=== PATIENT | male | born 1965 | race Caucasian/White ===

== ENCOUNTER → 2017-08-25 12:13 | Outpatient (CLI) | payer BC, SELFPAY ==
--- NOTE | 2017-08-25 12:19 | XR_ITS ---
XR chest 2V HISTORY: ITS.REASON: BRONCHITIS ORDERING PHYSICIAN: KETAN Toledo PATIENT AGE: 52 years COMPARISON: 09/08/2016 FINDINGS: The cardiomediastinal silhouette and pulmonary vascularity are within normal limits. There are mild atelectatic changes in the left lower lobe. There is mild hyperinflation. No lobar consolidation or collapse.. No acute bony abnormalities. IMPRESSION: Hyperinflation consistent with small airway disease with mild left basilar atelectasis
== END ==
PROVIDERS: PCP Physician Assistant; Visit Provider Physician Assistant
DX: J40 Bronchitis, not specified as acute or chronic (principal)
CPT/HCPCS: 71046

== ENCOUNTER 2018-03-15 13:45 | Outpatient (RCR) | payer OTHER, SELFPAY | END 2018-04-29 14:26 | disposition home or self-care (01) | LOC: PT 13:45 | PROVIDERS: PCP Family Medicine; Visit Provider Internal Medicine | DX: Z95.5 Presence of coronary angioplasty implant and graft (principal) | CPT/HCPCS: 93798 ==

== ENCOUNTER → 2018-03-28 14:17 | Outpatient (CLI) | payer OTHER, SELFPAY ==
[2018-03-28 14:49] LABS: Eosinophils # 0.1 K/mm3 (0.0-0.4); Eosinophils % 1.4 % (0.1-12.0); Hematocrit 47.7 % (42.0-52.0); Hemoglobin 16.3 g/dL (14.1-18.0); Lymphocytes # 1.2 K/mm3 (0.7-4.5); Lymphocytes % 15.4 K/mm3 (10-50); Mean Corpuscular HGB Conc 34.2 g/dL (31.8-35.4); Mean Corpuscular Hemoglobin 29.3 pg (27.0-31.2); Mean Corpuscular Volume 85.6 fl (80-94); Mean Platelet Volume 6.9 fl (7.4-10.4); Monocytes # 0.3 K/mm3 (0.1-1.0); Monocytes % 4.4 % (1.7-9.3); Neutrophils # 5.9 K/mm3 (1.8-7.8); Neutrophils % 78.7 % (37.0-80.0); Platelet Count 259 K/mm3 (142-424); Red Blood Count 5.57 M/mm3 (4.60-6.20); Red Cell Distribution Width 13.7 % (11.5-17.5); White Blood Count 7.5 K/mm3 (4.8-10.8)
[2018-03-28 15:43] LABS: Anion Gap 14.8 mEq/L (5-15); Blood Urea Nitrogen 11 mg/dL (7-18); Calcium 9.4 mg/dL (8.5-10.1); Carbon Dioxide 23 mmol/L (21.0-32.0); Chloride 106 mmol/L (98-107); Creatinine,Serum 1.31 mg/dL (0.70-1.30); Estimated Glomerular Filt Rate 57 ml/min (>60); GFR (African American) 69 ML/MIN (>60); Glucose 105 mg/dL (74-106); Potassium 4.8 mmoL/L (3.5-5.1); Sodium 139 mmol/L (136-145)
== END ==
PROVIDERS: Visit Provider Physician Assistant
DX: E78.4 Other hyperlipidemia (principal); I11.9 Hypertensive heart disease without heart failure; I25.10 Atherosclerotic heart disease of native coronary artery without angina pectoris; R91.1 Solitary pulmonary nodule; R06.02 Shortness of breath; J44.9 Chronic obstructive pulmonary disease, unspecified; Z95.5 Presence of coronary angioplasty implant and graft
CPT/HCPCS: 36415; 80048; 83880; 85025

== ENCOUNTER 2020-05-09 10:42 | Emergency (ER) | payer BC, SELFPAY ==
[2020-05-09 11:14] VITALS: BP 140/75; PULSE 82; RESP 20; TEMP 36.6; O2SAT 94; BMI 32.5
--- NOTE | 2020-05-09 11:40 | XR_ITS ---
PROCEDURE: XR CHEST 2V CLINICAL HISTORY: SOB Shortness of breath, COPD, former smoker COMPARISON: No exams were available for comparison FINDINGS: The cardiomediastinal silhouette and pulmonary vascularity are within normal limits. Atelectatic changes are present in both lower lobes. No lobar consolidation or collapse is evident. No acute bony abnormalities. IMPRESSION: Bilateral lower lobe atelectasis Dictated by: Clarence Adams MD 05/09/2020 12:41 Clarence Adams MD in [place] 05/09/2020 12:41
--- NOTE | 2020-05-09 11:40 | HMH.EDUTC ---
[facility] [place] Impression: COPD exacerbation URI (upper respiratory infection) Qualifiers: URI type: unspecified URI Qualified Code(s): J06.9 - Acute upper respiratory infection, unspecified Disposition: Home, Self-Care Condition on Discharge: Good Instructions: Sore Throat, Cough, DI for Cough -- Adult, Preventing the Spread of Coronavirus Discharge Instructions Additional Instructions: *Monitor Temp, Over the counter Motrin or Tylenol as directed/as needed Tylenol every 4 hours and Motrin every 6 hours (as long as your family doctor has told you that you can take it) for fever or pain. and straight to ER if unable to lower temp less than 101.0 after medication given *Warm salt water gargles may help to soothe the throat *Throat Lozenges *Warm fluids like tea with honey may help to soothe the throat *Sleep elevated *Humidifier/Vaporizer *You was tested for COVID 19, go home and self quarantine until your test results area back and negative Take medication as prescribed Return if needed Call back to the [facility] in the next 48-72 hours to see if your COVID test are back and the result Your throat swab was sent for culture. Those results are typically sent to your primary care. Be sure to follow up in 2-3 days with your family doctor/primary care physician if no improvement so they can review those result and treat if necessary. If you don?t have a primary care doctor, I recommend you get one but in the mean time, you will have to return to a walk in clinic Follow up IMMEDIATELY for new or worsening symptoms or no Noticeable improvement over the next 48-72 hours. 911 for difficulty breathing or swallowing Prescriptions: Albuterol Sulfate [Proventil-HFA 90mcg/puff Inh] 1 - 2 puffs IH Q4HP PRN #1 inh PRN Reason: Shortness Of Breath Transmission Status: Received by [facility] # predniSONE [Deltasone 10mg tablet] 10 mg PO BID 5 Days #10 tab Transmission Status: Received by [facility] # Azithromycin [Z-Karl 250mg Tab] 250 mg PO DIRECTED #6 tab Transmission Status: Received by [facility] # Referrals: Malik Hayward MD [Primary Care Provider] - As needed Forms: Work/School Release Time of Disposition: 12:32 Medical Decision Making - Darin Inquiry Pt receiving controlled substance: No Darin was queried for this patient: No Vital Signs: 05/09/20 11:14 05/09/20 12:10 Temperature 97.8 F 97.8 F Temperature Source Oral Pulse Rate 82 Pulse Rate [Left] 82 Respiratory Rate 20 20 Blood Pressure 140/75 Blood Pressure [Right Arm] 140/75 Blood Pressure Mean [Right Arm] 96 Blood Pressure Source [Right Arm] Automatic Cuff Blood Pressure Position [Right Arm] Sitting 02 Sat by Pulse Oximetry 94 L Oxygen Delivery Method Room Air - Lab Data Lab results reviewed: Yes: I reviewed the patient's lab results. Lab Results 05/09/20 12:34: Strep Scn Rapid Clinic Negative Orders (Tests/Meds): ORDERS Category Date Time Status Covid-19 Nasal PCR Sendout [facility] Stat Lab 05/09/20 10:20 Received Strep Screen Confirmation Stat Micro 05/09/20 12:34 Received - Radiology Data #1 Image(s): Chest Image Reviewed: Yes I reviewed the patient's radiology image w/the ED provider Atelectisis left lower lobe [facility] [place] - General Stated complaint: sore throat run nose cough Time Seen by Provider: 05/09/20 11:40 Mode of Arrival: Ambulatory Source of Information: Patient Limitations: No Limitations Description of Symptoms (Recalled from Triage Doc. by RN): Pt c/o sore throat, headache, fatigue, productive cough and SOB since yesterday. Pt states that he has COPD but it has been worse the last day. Pt states that they have had several people at work that have tested positive for the Covid-19. HEENT Symptoms (Recalled from RN notes): Yes Resp Symptoms (Recalled from RN notes): Yes Skin Symptoms (Recalled from RN notes): No MS Symptoms (Recalled from
[2020-05-09 12:10] VITALS: BP 140/75; PULSE 82; RESP 20; TEMP 36.6; O2SAT 94
[2020-05-09 12:36] LABS: UTC Strep Screen (Rapid) Negative (Negative)
[2020-05-10 20:32] LABS: Covid-19 Nasal PCR Sendout Lex Not Detected
== END 2020-05-09 12:37 | disposition home or self-care (01) ==
PROVIDERS: Emergency Provider Nurse Practitioner; PCP Family Medicine
DX: J44.1 Chronic obstructive pulmonary disease with (acute) exacerbation (principal); J06.9 Acute upper respiratory infection, unspecified; Z20.828 Contact with and (suspected) exposure to other viral communicable diseases
CPT/HCPCS: 71046; 87880; 99202; U0004

== ENCOUNTER 2020-07-11 09:27 | Emergency (ER) | payer BC, SELFPAY ==
[2020-07-11 09:48] VITALS: BP 115/80; PULSE 73; RESP 18; TEMP 36.8; O2SAT 98; BMI 32.5
--- NOTE | 2020-07-11 09:58 | HMH.EDUTC ---
[facility] [place] Disposition Clinical Impression: Encounter for laboratory testing for COVID-19 virus Sinusitis Qualifiers: Sinusitis location: unspecified location Chronicity: unspecified Qualified Code(s): J32.9 - Chronic sinusitis, unspecified Disposition: Home, Self-Care Condition on Discharge: Good Instructions: Sinusitis, Sinus Headache, DI for Sinusitis, Prednisone, Amoxicillin and Clavulanic Acid, Preventing the Spread of Coronavirus Discharge Instructions Additional Instructions: ? Start antibiotic today. Be sure to complete entire prescription even if feeling better ? Monitor temp. Tylenol every 4 hours as needed and / or ibuprofen every 6 hours as needed ( As long as your primary care physician has told you that it ok to take both. For fever/aches/pains ER if no less than 101 despite Tylenol or Motrin ? Humidifier/vaporizer or hot steamy shower ? Inhaler as prescribed by your Family Doctor. If unsure how to use it, ask pharmacist to demonstrate how. *Tessalon Perles will not cause drowsiness but use at bedtime to help stop cough so that you may get some rest. *Start steroid today. Helps with inflammation therefore, cough and wheezing. Follow directions on the package. Reviewed side effects. Patient reports taking them before. Follow up IMMEDIATELY for new or worsening of symptoms OR no noticeable improvement over the next 48-72 hours. 911 immediately for any life threatening symptoms such as chest pain or difficulty breathing Prescriptions: Amoxicillin/Potassium Clav [Augmentin 875-125 Tablet] 1 tab PO Q12H 7 Days #14 tab Transmission Status: Received by [facility] # predniSONE [Deltasone 10mg tablet] 10 mg PO BID 5 Days #10 tab Transmission Status: Received by [facility] # Benzonatate [Tessalon Perle 100mg Cap*] 100 mg PO TID PRN #15 cap PRN Reason: Cough Transmission Status: Received by [facility] # Referrals: Malik Hayward MD [Primary Care Provider] - As needed Forms: Work/School Release Medical Decision Making - Darin Inquiry Pt receiving controlled substance: No Darin was queried for this patient: No Vital Signs: 07/11/20 09:48 07/11/20 10:20 Temperature 98.2 F 98.2 F Temperature Source Oral Oral Pulse Rate 73 Pulse Rate [Radial] 73 Respiratory Rate 18 18 Blood Pressure 115/80 Blood Pressure [Right Arm] 115/80 Blood Pressure Mean [Right Arm] 91 Blood Pressure Source Automatic Cuff Blood Pressure Source [Right Arm] Automatic Cuff Blood Pressure Position Sitting Blood Pressure Position [Right Arm] Sitting 02 Sat by Pulse Oximetry 98 Oxygen Delivery Method Room Air Room Air - Lab Data Lab results reviewed: Yes: I reviewed the patient's lab results. Orders (Tests/Meds): ORDERS Category Date Time Status Covid-19 Nasal PCR Sendout [facility] Stat Lab 07/11/20 09:50 Received Medical Decision Narrative: Discussed CXR patient declined at this time [facility] [place] HPI - General Stated complaint: cough,runny nose,weak , SOS Time Seen by Provider: 07/11/20 09:58 Mode of Arrival: Ambulatory Source of Information: Patient Limitations: No Limitations Description of Symptoms (Recalled from Triage Doc. by RN): sob, cough, body aches x 3 days HEENT Symptoms (Recalled from RN notes): Yes Resp Symptoms (Recalled from RN notes): Yes Skin Symptoms (Recalled from RN notes): No MS Symptoms (Recalled from RN notes): No Functional Status (Recalled from RN notes): wnl - History of Present Illness Provider Complaint: Patient states that he has been having body aches, chill, sinus pain and pressure and feeling like he is having drainage in the back of his throat that is causing him to cough States that he has COPD and always has SOB but when he is coughing at times it feels like he cant get a deep breath denies productive cough States that he he hasnt had a fever that he is aware of but wanted to get checked for flu and COVID - Related Data Previous Rx's Medi
[2020-07-11 10:20] VITALS: BP 115/80; PULSE 73; RESP 18; TEMP 36.8; O2SAT 98
[2020-07-11 20:11] LABS: UTC Influenza A Antigen Negative (Negative); UTC Influenza B Antigen Negative (Negative); UTC Strep Screen (Rapid) Negative (Negative)
[2020-07-12 10:46] LABS: Covid-19 Nasal PCR Sendout Lex Not Detected
== END 2020-07-11 10:25 | disposition home or self-care (01) ==
PROVIDERS: Emergency Provider Nurse Practitioner; PCP Family Medicine
DX: Z20.828 Contact with and (suspected) exposure to other viral communicable diseases (principal); J32.9 Chronic sinusitis, unspecified
CPT/HCPCS: 87804; 87880; 99202; U0004

== ENCOUNTER → 2020-07-17 12:49 | Outpatient (CLI) | payer BC, SELFPAY ==
[2020-07-17 17:58] LABS: Alanine Aminotransferase 71 U/L (12-78); Albumin Level 4.2 g/dl (3.5-5.0); Albumin/Globulin Ratio 1.6 (1.1-1.8); Alkaline Phosphatase 104 U/L (38-126); Anion Gap 10.5 mEq/L (5-15); Aspartate Amino Transferase 37 U/L (17-59); Bilirubin,Total 0.5 mg/dl (0.2-1.3); Blood Urea Nitrogen 16 mg/dl (9-20); Calcium 9.7 mg/dl (8.4-10.2); Carbon Dioxide 28 mmol/L (22.0-30.0); Chloride 104 mmol/L (98-107); Chol/HDL Ratio 4.6 (1-3.5); Cholesterol 236 mg/dl (140-200); Estimated Glomerular Filt Rate 57 ml/min (>60); GFR (African American) 69 ML/MIN (>60); Globulin 2.7 g/dL (1.3-3.2); Glucose 66 mg/dl (74-100); HDL Cholesterol 51 mg/dl (40-60); Potassium 4.5 mmoL/L (3.5-5.1); Sodium 138 mmol/L (136-145); Total Protein,Serum 6.9 g/dl (6.3-8.2); Triglycerides 252 mg/dl (30-150); VLDL Cholesterol 50 mg/dL (0-40)
[2020-07-17 18:09] LABS: Direct LDL Cholesterol 148.09 mg/dL (100-129)
[2020-07-17 18:28] LABS: Prostate Specific Ag Screen 3.2 ng/ml (0.0-4.0); Thyroid Stimulating Hormone 1.44 uIU/mL (0.465-4.68)
[2020-07-17 22:28] LABS: Creatinine,Urine Random 178 mg/dL (Not Estab.); Microalbumin/Creatinine Ratio 6.6
== END ==
PROVIDERS: Visit Provider Family Medicine
DX: I10 Essential (primary) hypertension (principal); E78.5 Hyperlipidemia, unspecified; Z12.5 Encounter for screening for malignant neoplasm of prostate
CPT/HCPCS: 36415; 80053; 80061; 82043; 82570; 84443; G0103

== ENCOUNTER 2021-05-23 13:18 | Emergency (ER) | payer BC, SELFPAY ==
[2021-05-23 13:42] VITALS: BP 129/79; PULSE 78; RESP 24; TEMP 36.6; O2SAT 94; BMI 31.8
[2021-05-23 14:02] LABS: UTC Strep Screen (Rapid) Negative (Negative)
[2021-05-23 14:27] VITALS: BP 129/79; PULSE 78; RESP 24; TEMP 36.6
--- NOTE | 2021-05-23 14:35 | HMH.EDUTC ---
[facility] [place] Impression: Sinusitis Qualifiers: Sinusitis location: unspecified location Chronicity: unspecified Qualified Code(s): J32.9 - Chronic sinusitis, unspecified Disposition: Home, Self-Care Condition on Discharge: Good Instructions: Sinusitis, DI for Sinusitis Additional Instructions: *Monitor Temp, Over the counter Motrin or Tylenol as directed/as needed Tylenol every 4 hours and Motrin every 6 hours (as long as your family doctor has told you that you can take it) for fever or pain. and straight to ER if unable to lower temp less than 101.0 after medication given *Warm salt water gargles may help to soothe the throat *Throat Lozenges *Warm fluids like tea with honey may help to soothe the throat *Sleep elevated *Humidifier/Vaporizer Take medication as prescribed Follow up IMMEDIATELY for new or worsening symptoms or no Noticeable improvement over the next 48-72 hours. 911 for difficulty breathing or swallowing You were tested for today for COVID19 your test result should be back in the next 24-48 hours, you was given handout for instructions on how to log onto the [facility] portal to see your results if you have trouble logging on you may call for your results You was given a handout with instructions for Self Quarantine and Self isolation for while you wait on test results and what to do if they are positive If you are positive the Health Dept will be contacting you also Make sure to take your Vitamins Vit. C Vit D and Zinc if you can take them Prescriptions: Amoxicillin/Potassium Clav [Augmentin 875-125 Tablet] 1 tab PO Q12H 7 Days #14 tab Transmission Status: Received by [facility] # predniSONE [Deltasone 10mg tablet] 10 mg PO BID 5 Days #10 tab Transmission Status: Received by [facility] # Referrals: Malik Hayward MD [Primary Care Provider] - As needed Forms: Work/School Release Time of Disposition: 14:48 Medical Decision Making - Darin Inquiry Pt receiving controlled substance: No Darin was queried for this patient: No Vital Signs: 05/23/21 13:42 05/23/21 14:27 Temperature 98 F 98 F Temperature Source Oral Pulse Rate 78 Pulse Rate [Left] 78 Respiratory Rate 24 24 Blood Pressure 129/79 Blood Pressure [Right Arm] 129/79 Blood Pressure Mean [Right Arm] 95 02 Sat by Pulse Oximetry 94 L - Lab Data Lab Results 05/23/21 13:42: Strep Scn Rapid Clinic Negative Orders (Tests/Meds): ORDERS Category Date Time Status Covid-19 Nasal PCR ([facility]) Routine Lab 05/23/21 14:00 Received Strep Screen Confirmation Stat Micro 05/23/21 13:42 Received Medical Decision Narrative: Patient states that he has taken augmentin and prednisone in the past without complications or reactions rechecked SPO2 96% ra [facility] [place] - General Stated complaint: H/A, sinus pressure, chest congestion Time Seen by Provider: 05/23/21 14:20 Mode of Arrival: Ambulatory Source of Information: Patient Limitations: No Limitations Description of Symptoms (Recalled from Triage Doc. by RN): pt c/o DEE, sore throat and soa x3 days HEENT Symptoms (Recalled from RN notes): Yes (sore throat and DEE) Resp Symptoms (Recalled from RN notes): Yes (soa) Skin Symptoms (Recalled from RN notes): No MS Symptoms (Recalled from RN notes): No Functional Status (Recalled from RN notes): na - History of Present Illness Provider Complaint: Patient states that he has not felt well for over a week and for the last 3 days it has got worse States that he is having sinus pain and pressure and feeling pressure behind his eyes with drianage in the back of his throat that is making his throat feels sore State that he feels like the drainage is trying to move into his chest and wanted to get here before it got that bad due to him having COPD already and gets winded at times when he walks. State that SOA is no worse than normal but was worried it was trying to move into his chest so he came in
== END 2021-05-23 15:02 | disposition home or self-care (01) ==
PROVIDERS: Emergency Provider Nurse Practitioner; PCP Family Medicine
DX: J32.9 Chronic sinusitis, unspecified (principal)
CPT/HCPCS: 87880; 99203; C9803; G0463; U0003; U0005

== ENCOUNTER → 2021-07-22 16:05 | Outpatient (CLI) | payer BC, SELFPAY ==
--- NOTE | 2021-07-22 | XR_ITS ---
PROCEDURE INFORMATION: Exam: XR Right Calcaneus Exam date and time: 07/22/2021 12:00 AM Age: 56 years old Clinical indication: Pain; Heel; Right; Additional info: Heel pain; No known injury TECHNIQUE: Imaging protocol: XR of the Right calcaneus. Views: 2 or more views. COMPARISON: No relevant prior studies available. FINDINGS: Bones/joints: No fracture. No malalignment. There is a small plantar spur on the calcaneus. Soft tissues: Normal. IMPRESSION: Small plantar spur
== END ==
PROVIDERS: PCP Family Medicine; Visit Provider Family Medicine
DX: M79.671 Pain in right foot (principal)
CPT/HCPCS: 73650

== ENCOUNTER 2022-01-04 10:56 | Emergency (ER) | payer BC, SELFPAY ==
[2022-01-04 11:10] VITALS: BP 140/86; PULSE 73; RESP 19; TEMP 36.8; O2SAT 98; BMI 31.8
--- NOTE | 2022-01-04 11:19 | HMH.EDUTC ---
[facility] [place] Disposition Clinical Impression: COPD exacerbation Disposition: Home, Self-Care Condition on Discharge: Good Instructions: DI for Chronic Obstructive Pulmonary Disease Additional Instructions: Tylenol and ibuprofen as needed for pain or fever Humidifier/vaporizer/hot steamy shower Follow-up with primary care tomorrow. Follow-up immediately in the ER of the [facility] for new or worsening symptoms or no noticeable improvement over the next 48-72 hours. Stop smoking Start steroids tomorrow. Helps with inflammation therefore coughing and wheezing. Follow directions on package. Prescriptions: predniSONE [Prednisone 20mg Tab] 20 mg PO BID #10 tab Transmission Status: Pending to [id number] Referrals: Malik Hayward MD [Primary Care Provider] - Time of Disposition: 11:25 Medical Decision Making - Darin Inquiry Pt receiving controlled substance: No Vital Signs: 01/04/22 11:10 Temperature 98.3 F Temperature Source Oral Pulse Rate [Right Brachial] 73 Respiratory Rate 19 Blood Pressure [Right Arm] 140/86 Blood Pressure Mean [Right Arm] 104 Blood Pressure Source [Right Arm] Automatic Cuff Blood Pressure Position [Right Arm] Sitting 02 Sat by Pulse Oximetry 98 Oxygen Delivery Method Room Air [facility] [place] HPI - General Chief complaint: Urgent Treatment Center Stated complaint: SOA Time Seen by Provider: 01/04/22 11:19 Mode of Arrival: Ambulatory Source of Information: Patient Limitations: No Limitations Description of Symptoms (Recalled from Triage Doc. by RN): PATIENT C/O SOA X 1 WEEK. REPORTS HISTORY OF COPD HEENT Symptoms (Recalled from RN notes): No Resp Symptoms (Recalled from RN notes): Yes Skin Symptoms (Recalled from RN notes): No MS Symptoms (Recalled from RN notes): No Functional Status (Recalled from RN notes): WNL - History of Present Illness Provider Complaint: 56 yr old male presents for soa. pt states he has copd and its acting up. pt states he has been taking his inhalers but still soa - Related Data Home Medications Medication Instructions Recorded Confirmed aspirin 81 mg tablet,delayed 81 mg PO DAILY tab 02/28/18 09/04/21 release melatonin 5 mg tablet 5 mg PO HS PRN 02/28/18 09/04/21 tamsulosin 0.4 mg capsule 0.4 mg PO DAILY cap 02/28/18 09/04/21 finasteride 5 mg tablet 5 mg PO DAILY tab 04/02/21 09/04/21 tiotropium 2.5 mcg-olodaterol 2.5 2 puff INHALATION ONCE g 04/02/21 09/04/21 mcg/actuation mist for inhalation Clopidogrel Bisulfate [Plavix] 75 mg PO DAILY 09/04/21 09/04/21 Ezetimibe 10 mg PO DAILY 09/04/21 09/04/21 Isosorbide Mononitrate [Isosorbide 30 mg PO DAILY 09/04/21 09/04/21 Mononitrate ER] Pantoprazole Sodium 40 mg PO DAILY 09/04/21 09/04/21 Pitavastatin Calcium [Livalo] 2 mg PO HS 09/04/21 09/04/21 bisoproloL fumarate [Bisoprolol 5 mg PO DAILY 09/04/21 09/04/21 Fumarate] lisinopriL [Lisinopril] 2.5 mg PO DAILY 09/04/21 09/04/21 Previous Rx's Medication Instructions Recorded Albuterol Sulfate [Proventil-HFA 1 - 2 puffs IH Q4HP PRN #1 inh 05/09/20 90mcg/puff Inh] predniSONE [Prednisone 20mg 20 mg PO BID #10 tab 01/04/22 Tab] Allergies Allergy/AdvReac Type Severity Reaction Status Date / Time atorvastatin [From Lipitor] AdvReac Severe leg pain Verified 07/28/21 15:08 rosuvastatin [From Crestor] AdvReac Severe leg pain Verified 07/28/21 15:08 Imdrwvh-WBQ-MzN Reductase AdvReac Severe leg pain Verified 07/28/21 15:08 Inhibitor [Xegpdwn-Nrv-Mvj Reductase Inhibitor] - Worker's Comp Is this a Worker's Comp case?: No [facility] History - Hepatitis A Screen Attestation statement:: This patient has been screened for Hepatitis A risk factors. I have reviewed the patient's past medical history: Yes Medical History: Reports:: Asthma, Chronic Obstructive Pulmonary Disease (COPD), Coronary Artery Disease, Hyperlipidemia, Hypertension, Myocardial Infarction, Palpitations Denies:: Cancer, Diabetes Mellitus Type 1, Di
[2022-01-04 11:27] VITALS: BP 140/86; PULSE 73; RESP 19; TEMP 36.8; O2SAT 98
== END 2022-01-04 11:33 | disposition home or self-care (01) ==
PROVIDERS: Emergency Provider Nurse Practitioner Family; PCP Family Medicine
DX: J44.1 Chronic obstructive pulmonary disease with (acute) exacerbation (principal); Z88.8 Allergy status to other drugs, medicaments and biological substances
CPT/HCPCS: 96372; 99212; G0463

== ENCOUNTER 2022-01-26 14:07 | Emergency (ER) | payer BC, SELFPAY ==
[2022-01-26 14:15] VITALS: BP 144/84; PULSE 86; RESP 19; TEMP 36.6; O2SAT 97; BMI 27.3
--- NOTE | 2022-01-26 14:44 | HMH.EDUTC ---
[facility] [place] Clinical Impression: COPD exacerbation Sinusitis Qualifiers: Sinusitis location: unspecified location Chronicity: unspecified Qualified Code(s): J32.9 - Chronic sinusitis, unspecified Disposition: Home, Self-Care Condition on Discharge: Good Instructions: Sinusitis, Chronic Obstructive Pulmonary Disease, DI for Sinusitis, COPD: When to Call for Help Additional Instructions: ? Start antibiotic today. Be sure to complete entire prescription even if feeling better ? Monitor temp. Tylenol every 4 hours as needed and / or ibuprofen every 6 hours as needed ( As long as your primary care physician has told you that it ok to take both. For fever/aches/pains ER if no less than 101 despite Tylenol or Motrin ? Humidifier/vaporizer or hot steamy shower ? Inhaler every 4-6 hours as needed like we discussed. If unsure how to use it, ask pharmacist to demonstrate how. Should help open airways and improve cough, wheezing, and shortness of breath *Start steroid tomorrow. Helps with inflammation therefore, cough and wheezing. Follow directions on the package. Reviewed side effects. Patient reports taking them before. Follow up IMMEDIATELY for new or worsening of symptoms OR no noticeable improvement over the next 48-72 hours. 911 immediately for any life threatening symptoms such as chest pain or difficulty breathing Prescriptions: predniSONE [Prednisone 20mg Tab] 20 mg PO BID #10 tab Transmission Status: Received by [id number] Azithromycin [Z-Karl 250mg Tab] 250 mg PO DIRECTED #6 tab Transmission Status: Received by [id number] Referrals: Malik Hayward MD [Primary Care Provider] - As needed Forms: Work/School Release Medical Decision Making - Darin Inquiry Pt receiving controlled substance: No Darin was queried for this patient: No Vital Signs: 01/26/22 14:15 01/26/22 15:13 Temperature 97.9 F 97.9 F Temperature Source Oral Pulse Rate 86 Pulse Rate [Right Brachial] 86 Respiratory Rate 19 19 Blood Pressure 144/84 H Blood Pressure [Right Arm] 144/84 H Blood Pressure Mean [Right Arm] 104 Blood Pressure Source [Right Arm] Automatic Cuff Blood Pressure Position [Right Arm] Sitting 02 Sat by Pulse Oximetry 97 Oxygen Delivery Method Room Air Orders (Tests/Meds): ED MEDICATIONS Discontinued Medications Generic Name Dose Route Start Last Admin Trade Name Freq PRN Reason Stop Dose Admin Albuterol/Ipratropium 3 ml 01/26/22 14:51 01/26/22 15:12 Ipratropium/Albuterol 3 Ml Neb IH 01/26/22 14:52 3 ml ONCE ONE Administration Ceftriaxone Sodium 1 gm 01/26/22 14:52 01/26/22 15:10 Ceftriaxone 1gm Vial IM 01/26/22 14:53 1 gm ONCE ONE Administration Lidocaine HCl 0 ml 01/26/22 14:52 01/26/22 15:10 Lidocaine 1% 5ml Pf Vial IM 01/26/22 14:53 2 ml ONCE ONE Administration Methylprednisolone Sodium Succinate 125 mg 01/26/22 14:52 01/26/22 15:10 Methylprednisolone Sod Succ 125mg Vial IM 01/26/22 14:53 125 mg ONCE ONE Administration Medical Decision Narrative: Discussed chest xray and patient declined at this time Medication discussed with pharmacy Patient states that he has taken prednisone and Azithromycin in past without complications or reactions [facility] [place] HPI - General Stated complaint: congestion, SOB Time Seen by Provider: 01/26/22 14:44 Mode of Arrival: Ambulatory Source of Information: Patient Limitations: No Limitations Description of Symptoms (Recalled from Triage Doc. by RN): PATIENT C/O SOA, CONGESTION, PRODUCTIVE COUGH, FATIGUE. HE STATES HE WAS SEEN IN [facility] 1 MONTH AGO FOR SAME SYMPTOMS AND WAS GIVEN STEROIDS WHICH HELPED SOME HEENT Symptoms (Recalled from RN notes): Yes Resp Symptoms (Recalled from RN notes): Yes Skin Symptoms (Recalled from RN notes): No MS Symptoms (Recalled from RN notes): No Functional Status (Recalled from RN notes): WNL - History of Present Illness Provider Complaint: Patient states leatha
[2022-01-26 15:13] VITALS: BP 144/84; PULSE 86; RESP 19; TEMP 36.6; O2SAT 97
== END 2022-01-26 15:30 | disposition home or self-care (01) ==
PROVIDERS: Emergency Provider Nurse Practitioner; PCP Family Medicine
DX: J44.1 Chronic obstructive pulmonary disease with (acute) exacerbation (principal); J32.9 Chronic sinusitis, unspecified
CPT/HCPCS: 96372; 99212; G0463; J0696

== ENCOUNTER 2022-04-21 09:05 | Emergency (ER) | payer BC, SELFPAY ==
[2022-04-21 09:05] VITALS: BP 102/63; PULSE 97; RESP 15; TEMP 37.4; O2SAT 98; BMI 31.1
--- NOTE | 2022-04-21 09:05 | PC.NURSE ---
Pt ambulatory to ED Room 7 from waiting area without complications. EKG obtained and given to ER MD. pt hooked to hall monitor and traige was completed by LILY Murray. IV inserted and labs sent to lab
--- NOTE | 2022-04-21 09:05 | ECG_ITS ---
APPROVED REPORT Exam: Resting ECG HR:93 bpm ECG Measurements Heart Rate 93 AXES MD 137 P 37 QRSd 92 QRS 7 QT 299 T 14 QTc 349 Conclusion SINUS RHYTHM WITH MARKED SINUS ARRHYTHMIA Old q wave in III of questionable significance. Late R wave progression Abnormal ECG UNCONFIRMED REPORT Electronically signed by : Jesse Bajwa MD 04/21/2022 16:48:53
--- NOTE | 2022-04-21 09:08 | XR_ITS ---
FINAL REPORT CLINICAL HISTORY: chest pain COMPARISON: September 21, 2017 FINDINGS: Two views of the chest were obtained. The heart size and pulmonary vascularity are within normal limits. The mediastinum is normal. There is mild left base atelectasis or scarring. There is no pneumothorax. The bony thorax is intact. IMPRESSION: Mild left lung base atelectasis or scarring. Reviewed, Interpreted and Dictated by Shan Perrin III, MD Transcribed by Lakisha Peterson Authenticated and [facility]
--- NOTE | 2022-04-21 09:11 | HMH.EDGENADL ---
Discharge Plan Disposition Patient Disposition: Home, Self-Care Condition: Good Chief Complaint: Chest Pain Prescriptions Prescriptions: No Action finasteride 5 mg tablet 5 mg PO DAILY Label Comments: TAKE 1 TABLET BY MOUTH EVERY DAY Stiolto Respimat 2.5-2.5 mcg/actuation mist 2 puff INHALATION ONCE Label Comments: INHALE 2 PUFFS EVERY 24 HOURS aspirin 81 mg tablet,delayed release (DR/EC) 81 mg PO DAILY melatonin 5 mg tablet 5 mg PO HS PRN (Reason: Sleep) tamsulosin [Flomax] 0.4 mg capsule 0.4 mg PO DAILY isosorbide mononitrate 30 mg tablet extended release 24 hr See Rx Instructions .ROUTE .COMPLEX Qty: 30 5RF Dose Instruction: TAKE 1 TABLET BY MOUTH DAILY Rx Instructions: TAKE 1 TABLET BY MOUTH DAILY clopidogrel 75 MG tablet 75 mg PO DAILY bisoprolol fumarate 5 MG tablet 5 mg PO DAILY pantoprazole 40 MG tablet,delayed release (DR/EC) 40 mg PO DAILY lisinopril 2.5 MG tablet 2.5 mg PO DAILY ezetimibe 10 MG tablet 10 mg PO DAILY pitavastatin calcium 2 MG tablet 2 mg PO HS azithromycin 250 MG tablet 250 mg PO DIRECTED Qty: 6 0RF Rx Instructions: Take two (2) tablets on day #1, then one (1) tablet day #2 thru #5 prednisone 20 MG tablet 20 mg PO BID Qty: 10 0RF Rx Instructions: start on 01/27/22 albuterol sulfate 200 PUFFS HFA aerosol inhaler 1 - 2 puffs IH Q4HP PRN (Reason: Shortness Of Breath) Qty: 1 0RF prednisone 20 MG tablet 20 mg PO BID Qty: 10 0RF Activity Restrictions/Add. Instructions Additional Instructions/Restrictions: ADDITIONAL INSTRUCTIONS FOR COVID-19: Rest, drink plenty of fluids. Tylenol or Ibuprofen for fever and/or aches and pains. Monitor your symptoms. IF YOU HAVE AN EMERGENCY WARNING SIGN (INCLUDING TROUBLE BREATHING), SEEK EMERGENCY MEDICAL CARE IMMEDIATELY. COVID-19 Isolation: People with COVID-19 should isolate for 5 days. Then if they are asymptomatic (no symptoms) or their symptoms are resolving (without fever for 24 hours), follow that by 5 days of wearing a mask when around others to minimize the risk of infecting people you encounter. If you test positive for COVID-19 and never develop symptoms, day 0 is the day of your positive viral test (based on the date you were tested) and day 1 is the first full day after your positive test. If you develop symptoms after testing positive, your 5-day isolation period must start over. Day 0 is your first day of symptoms. Day 1 is the first full day after your symptoms developed. What to do: Stay in a separate room from other household members, if possible. Use a separate bathroom, if possible. Avoid contact with other members of the household and pets. Don?t share personal household items, like cups, towels, and utensils. Wear a mask when around other people if able. Clinical Impressions Clinical Impression: COVID-19 virus infection, Atypical chest pain Discharge ED Provider: Sergio Alex General Adult HPI General Chief complaint: Chest Pain Stated complaint: CP Time Seen by Provider: 04/21/22 09:12 History of Present Illness HPI narrative: Patient states that he began feeling ill on Wednesday. He had a sore throat and body aches. He took his temperature on Wednesday and it was normal. Late last night he also developed some chest pain that feels like a pulsation that comes and goes in his anterior chest. Also his hips are aching. He has had a cough for the past couple of days producing some grayish sputum. He feels short of breath, but says that he has COPD and is always short of breath. He says that his tested positive for COVID with a home test on Wednesday 4 days ago. He has not taken at home test himself. He has been vaccinated against COVID about 2 years ago with the [employer] vaccine, no boosters. He does have coronary artery disease, his current chest pain does not feel
--- NOTE | 2022-04-21 09:11 | PC.NURSE ---
Spouse at BS
[2022-04-21 09:14] VITALS: PULSE 97
--- NOTE | 2022-04-21 09:16 | PC.NURSE ---
pt to radiology via wc with farm equipment service technician
[2022-04-21 09:29] LABS: Influenza A, PCR Not Detected (NotDetected); Influenza B, PCR Not Detected (NotDetected)
[2022-04-21 09:33] LABS: Basophils % 0.2 % (0.1-2.0); Eosinophils # 0.1 K/mm3 (0.0-0.4); Eosinophils % 1.3 % (0.1-12.0); Hematocrit 46.5 % (42.0-52.0); Hemoglobin 15.1 g/dL (14.1-18.0); Lymphocytes # 0.3 K/mm3 (0.7-4.5); Lymphocytes % 3.7 % (10-50); Mean Corpuscular HGB Conc 32.4 g/dL (31.8-35.4); Mean Corpuscular Hemoglobin 29.2 pg (27.0-31.2); Mean Corpuscular Volume 90.3 fl (80-94); Mean Platelet Volume 7.4 fl (7.4-10.4); Monocytes # 0.4 K/mm3 (0.1-1.0); Monocytes % 4.9 % (1.7-9.3); Neutrophils # 7.1 K/mm3 (1.8-7.8); Neutrophils % 89.9 % (37.0-80.0); Platelet Count 201 K/mm3 (142-424); Red Blood Count 5.15 M/mm3 (4.60-6.20); Red Cell Distribution Width 13.1 % (11.5-17.5); White Blood Count 7.9 K/mm3 (4.8-10.8)
[2022-04-21 09:35] LABS: MANUAL DIFFERENTIAL MANUAL DIFFERENTIAL (MANUAL DIFF)
[2022-04-21 09:37] VITALS: BP 104/59; PULSE 89; O2SAT 97
[2022-04-21 09:40] LABS: Anion Gap 12.2 mEq/L (5-15); Blood Urea Nitrogen 11 mg/dl (9-20); Calcium 9.5 mg/dl (8.4-10.2); Carbon Dioxide 25 mmol/L (22.0-30.0); Chloride 104 mmol/L (98-107); Creatinine Clearance Estimated 109 mL/min (50-200); Estimated Glomerular Filt Rate 69 ml/min (>60); GFR (African American) 83 ML/MIN (>60); Glucose 90 mg/dl (74-100); Potassium 4.2 mmoL/L (3.5-5.1); Sodium 137 mmol/L (136-145)
[2022-04-21 09:51] LABS: Coronavirus 19, PCR Detected (NotDetected)
[2022-04-21 09:53] LABS: Troponin I < 0.01 ng/ml (0.00-0.034)
[2022-04-21 10:06] LABS: Eosinophils % 1 % (0-3); Lymphocytes % 4 % (10-50); Monocytes % 4 % (2-9); Neutrophils % 91 % (42-76); Platelet Estimate Normal; RBC Morphology Normal; Total Cells Counted 100
[2022-04-21 10:07] VITALS: BP 93/53; PULSE 86; O2SAT 95
--- NOTE | 2022-04-21 10:27 | PC.NURSE ---
ER at for patient eval regarding update on POC/results
[2022-04-21 10:57] VITALS: BP 105/58; PULSE 85; O2SAT 95
--- NOTE | 2022-04-21 11:08 | PC.NURSE ---
Bernarda RN at going over discharge instructtions with patient
[2022-04-21 11:10] VITALS: BP 105/58; PULSE 85; RESP 18; TEMP 37.4; O2SAT 99
== END 2022-04-21 11:10 | disposition home or self-care (01) ==
PROVIDERS: Emergency Provider Emergency Medicine; PCP Family Medicine
DX: U07.1 COVID-19 (principal); R07.89 Other chest pain; Z87.19 Personal history of other diseases of the digestive system
CPT/HCPCS: 71046; 80048; 84484; 85007; 85025; 93005; 99285; C9803; U0003; U0005

== ENCOUNTER 2022-04-29 12:14 | Emergency (ER) | payer BC, SELFPAY ==
--- NOTE | 2022-04-29 12:28 | XR_ITS ---
FINAL REPORT CLINICAL HISTORY: CHEST CONGESTION COMPARISON: April 21, 2022 FINDINGS: Two views of the chest were obtained. The heart size and pulmonary vascularity are within normal limits. The mediastinum is normal. No acute pulmonary abnormality is identified. There is no pneumothorax. The bony thorax is intact. IMPRESSION: No active cardiopulmonary disease. Reviewed, Interpreted and Dictated by Shan Perrin III, MD Transcribed by Lakisha Peterson Authenticated and [facility]
[2022-04-29 12:35] VITALS: BP 113/74; PULSE 78; RESP 22; TEMP 36.7; O2SAT 97; BMI 29.1
--- NOTE | 2022-04-29 13:32 | EXP.UTC ---
Discharge Plan Disposition Patient Disposition: Home, Self-Care Condition: Good Prescriptions Prescriptions: New prednisone 20 mg tablet 20 mg PO BID 5 Days Qty: 10 0RF cefdinir 300 mg capsule 300 mg PO BID 7 Days Qty: 14 0RF benzonatate 100 mg capsule 100 mg PO TID PRN (Reason: cough) Qty: 15 0RF No Action finasteride 5 mg tablet 5 mg PO DAILY Label Comments: TAKE 1 TABLET BY MOUTH EVERY DAY Stiolto Respimat 2.5-2.5 mcg/actuation mist 2 puff INHALATION ONCE Label Comments: INHALE 2 PUFFS EVERY 24 HOURS aspirin 81 mg tablet,delayed release (DR/EC) 81 mg PO DAILY melatonin 5 mg tablet 5 mg PO HS PRN (Reason: Sleep) tamsulosin [Flomax] 0.4 mg capsule 0.4 mg PO DAILY isosorbide mononitrate 30 mg tablet extended release 24 hr See Rx Instructions .ROUTE .COMPLEX Qty: 30 5RF Dose Instruction: TAKE 1 TABLET BY MOUTH DAILY Rx Instructions: TAKE 1 TABLET BY MOUTH DAILY clopidogrel 75 MG tablet 75 mg PO DAILY bisoprolol fumarate 5 MG tablet 5 mg PO DAILY pantoprazole 40 MG tablet,delayed release (DR/EC) 40 mg PO DAILY lisinopril 2.5 MG tablet 2.5 mg PO DAILY ezetimibe 10 MG tablet 10 mg PO DAILY pitavastatin calcium 2 MG tablet 2 mg PO HS azithromycin 250 MG tablet 250 mg PO DIRECTED Qty: 6 0RF Rx Instructions: Take two (2) tablets on day #1, then one (1) tablet day #2 thru #5 prednisone 20 MG tablet 20 mg PO BID Qty: 10 0RF Rx Instructions: start on 01/27/22 albuterol sulfate 200 PUFFS HFA aerosol inhaler 1 - 2 puffs IH Q4HP PRN (Reason: Shortness Of Breath) Qty: 1 0RF prednisone 20 MG tablet 20 mg PO BID Qty: 10 0RF Referrals Follow up/Referrals: Malik Hayward MD [Primary Care Provider] - See instructions (follow up if no improvement or any worsening of symptoms) Activity Restrictions/Add. Instructions Additional Instructions/Restrictions: Start antibiotic today. Be sure to complete entire prescription even if feeling better Monitor temp. Tylenol every 4 hours as needed and / or ibuprofen every 6 hours as needed ( As long as your primary care physician has told you that it ok to take both. For fever/aches/pains ER if no less than 101 despite Tylenol or Motrin Humidifier/vaporizer or hot steamy shower Inhaler as prescribed as needed like we discussed. If unsure how to use it, ask pharmacist to demonstrate how. Should help open airways and improve cough, wheezing, and shortness of breath *Tessalon Perles will not cause drowsiness but use at bedtime to help stop cough so that you may get some rest. *Start steroid today. Helps with inflammation therefore, cough and wheezing. Follow directions on the package. Reviewed side effects. Patient reports taking them before. Follow up IMMEDIATELY for new or worsening of symptoms OR no noticeable improvement over the next 48-72 hours. 911 immediately for any life threatening symptoms such as chest pain or difficulty breathing Clinical Impressions Clinical Impression: Bronchitis Instructions Patient Instructions: Acute Bronchitis Discharge ED Provider: Juana Zhao [facility] [place] HPI General Stated complaint: one week covid positive,cough Mode of Arrival: Ambulatory Source of Information: Patient Limitations: No Limitations Time Seen by Provider: 04/29/22 13:32 Description of Symptoms (Recalled from Triage Doc. by RN): PATIENT C/O COUGH, REPORTS TESTING POSITIVE FOR COVID LAST WEDNESDAY HEENT Symptoms (Recalled from RN notes): No Resp Symptoms (Recalled from RN notes): Yes Skin Symptoms (Recalled from RN notes): No MS Symptoms (Recalled from RN notes): No Functional Status (Recalled from RN notes): WNL History of Present Illness Provider Complaint: Patient states that he had COVID over a week ago States that now he is having a bad cough and at times coughing up thi
[2022-04-29 13:46] VITALS: BP 113/74; PULSE 78; RESP 22; TEMP 36.7; O2SAT 97
== END 2022-04-29 13:51 | disposition home or self-care (01) ==
PROVIDERS: Emergency Provider Nurse Practitioner; PCP Family Medicine
DX: J20.9 Acute bronchitis, unspecified (principal); U07.1 COVID-19
CPT/HCPCS: 71046; 99212; G0463

== ENCOUNTER 2023-03-20 11:49 | Emergency (ER) | payer BC, SELFPAY ==
[2023-03-20 11:49] VITALS: BP 121/105; PULSE 67; RESP 20; TEMP 36.7; O2SAT 97; BMI 29.8
--- NOTE | 2023-03-20 11:50 | ECG_ITS ---
APPROVED REPORT Exam: Resting ECG HR:67 bpm ECG Measurements Heart Rate 67 AXES SD 142 P 29 QRSd 90 QRS -3 QT 361 T 25 QTc 377 Conclusion SINUS RHYTHM Old Q waves in III and AVF of questionable significance Late R wave progression Findings unchanged over past 3 years. BORDERLINE ECG UNCONFIRMED REPORT Electronically signed by : Jesse Bajwa MD 03/21/2023 14:26:56
[2023-03-20 12:01] VITALS: BP 125/79; PULSE 66; RESP 20; O2SAT 96
--- NOTE | 2023-03-20 12:07 | XR_ITS ---
PROCEDURE INFORMATION: Exam: XR Chest Exam date and time: 03/20/2023 12:32 PM Age: 58 years old Clinical indication: Pain; Angina pectoris; Prior surgery; Surgery date: 6+ months; Surgery type: Cariac stents; Additional info: Chest pain TECHNIQUE: Imaging protocol: Radiologic exam of the chest. Views: 1 view. COMPARISON: CR XR CHEST 2V 04/29/2022 12:24 PM FINDINGS: Lungs: Unremarkable. No consolidation. Pleural spaces: Unremarkable. No pleural effusion. No pneumothorax. Heart/Mediastinum: Unremarkable. No cardiomegaly. Bones/joints: Unremarkable. IMPRESSION: No acute findings.
[2023-03-20 12:16] LABS: Basophils % 0.2 % (0.1-2.0); Eosinophils # 0.1 K/mm3 (0.0-0.4); Eosinophils % 1.7 % (0.1-12.0); Hemoglobin 15.5 g/dL (14.1-18.0); Lymphocytes # 1.2 K/mm3 (0.7-4.5); Lymphocytes % 15.7 % (10-50); Mean Corpuscular HGB Conc 32.3 g/dL (31.8-35.4); Mean Corpuscular Hemoglobin 29.1 pg (27.0-31.2); Mean Platelet Volume 7.7 fl (7.4-10.4); Monocytes # 0.5 K/mm3 (0.1-1.0); Monocytes % 6.4 % (1.7-9.3); Neutrophils # 5.8 K/mm3 (1.8-7.8); Platelet Count 197 K/mm3 (142-424); Red Blood Count 5.33 M/mm3 (4.60-6.20); Red Cell Distribution Width 13.7 % (11.5-17.5); White Blood Count 7.6 K/mm3 (4.8-10.8)
[2023-03-20 12:17] LABS: Chloride 104 mmol/L (98-107); Potassium 4.3 mmoL/L (3.5-5.1); Sodium 139 mmol/L (136-145)
--- NOTE | 2023-03-20 12:18 | PC.NURSE ---
DR GREEN AT BEDSIDE
[2023-03-20 12:19] LABS: Blood Urea Nitrogen 11 mg/dl (9-20); Creatinine Clearance Estimated 114 mL/min (50-200); Estimated Glomerular Filt Rate 77 ml/min (>60); GFR (African American) 93 ML/MIN (>60)
[2023-03-20 12:20] LABS: Alanine Aminotransferase 40 U/L (12-78); Albumin/Globulin Ratio 1.4 (1.1-1.8); Alkaline Phosphatase 90 U/L (38-126); Anion Gap 11.3 mEq/L (5-15); Aspartate Amino Transferase 35 U/L (17-59); Bilirubin,Total 0.8 mg/dl (0.2-1.3); Calcium 9.4 mg/dl (8.4-10.2); Carbon Dioxide 28 mmol/L (22.0-30.0); Globulin 2.9 g/dL (1.3-3.2); Glucose 110 mg/dl (74-100); Total Protein,Serum 6.9 g/dl (6.3-8.2)
[2023-03-20 12:40] LABS: Troponin I < 0.01 ng/ml (0.00-0.034)
--- NOTE | 2023-03-20 12:42 | HMH.EDGENADL ---
Discharge Plan Disposition Patient Disposition: Home, Self-Care Chief Complaint: Chest Pain Prescriptions Prescriptions: No Action finasteride 5 mg tablet 5 mg PO DAILY Patient Comments: TAKE 1 TABLET BY MOUTH EVERY DAY Stiolto Respimat 2.5-2.5 mcg/actuation mist 2 puff INHALATION ONCE Patient Comments: INHALE 2 PUFFS EVERY 24 HOURS aspirin 81 mg tablet,delayed release (DR/EC) 81 mg PO DAILY melatonin 5 mg tablet 5 mg PO HS PRN (Reason: Sleep) tamsulosin [Flomax] 0.4 mg capsule 0.4 mg PO DAILY isosorbide mononitrate 30 mg tablet extended release 24 hr See Rx Instructions .ROUTE .COMPLEX Qty: 30 5RF Dose Instruction: TAKE 1 TABLET BY MOUTH DAILY Rx Instructions: TAKE 1 TABLET BY MOUTH DAILY clopidogrel 75 mg tablet See Rx Instructions .ROUTE .COMPLEX Qty: 90 5RF Dose Instruction: TAKE 1 TABLET BY MOUTH DAILY Rx Instructions: TAKE 1 TABLET BY MOUTH DAILY pantoprazole 40 MG tablet,delayed release (DR/EC) 40 mg PO NEEDED PRN (Reason: gerd) ezetimibe 10 MG tablet 10 mg PO DAILY albuterol sulfate 200 PUFFS HFA aerosol inhaler 1 - 2 puffs IH Q4HP PRN (Reason: Shortness Of Breath) Qty: 1 0RF Livalo 2 mg tablet 2 mg PO DAILY Xarelto 2.5 mg tablet 2.5 mg PO BID bisoprolol fumarate 5 mg tablet See Rx Instructions .ROUTE .COMPLEX Rx Instructions: TAKE 1 TABLET BY MOUTH DAILY lisinopril 2.5 mg tablet See Rx Instructions .ROUTE .COMPLEX Rx Instructions: TAKE 1 TABLET BY MOUTH DAILY Referrals Follow up/Referrals: Malik Hayward MD [Primary Care Provider] - See instructions Facundo Bhakta MD [Staff Physician] - See instructions Activity Restrictions/Add. Instructions Additional Instructions/Restrictions: Please follow-up with Dr. Bhakta at your earliest convenience and return to the emergency department with any worsening symptoms Clinical Impressions Clinical Impression: Chest pain Discharge ED Provider: Matt Maldonado General Adult HPI General Chief complaint: Chest Pain Stated complaint: chest pain Time Seen by Provider: 03/20/23 12:17 Mode of Arrival: Ambulatory Limitations: No Limitations Description of Symptoms (Recalled from ER Triage Doc. by RN): chest pain for past few months, pain worse while outside and no relief of symptoms History of Present Illness HPI narrative: Patient is a 58-year-old male with a known history of coronary artery disease presented today with chest pain. Its been coming and going for the last month states that its been pretty significant over the last few days. It has been intermittent in nature and most recently occurred just prior to arrival. Lasted about 15 minutes substernal in nature nonradiating no significant shortness of breath he is asymptomatic at the moment. No diaphoresis this is nonexertional he states that it is random both in when he comes in when he goes. Last heart cath was in 2017 he states he is compliant with his medications including antiplatelet agents. Related Data Home Medications Medication Instructions Recorded Confirmed aspirin 81 mg tablet,delayed 81 mg PO DAILY heart health 02/28/18 03/20/23 release melatonin 5 mg tablet 5 mg PO HS PRN Sleep 02/28/18 03/20/23 tamsulosin 0.4 mg capsule (Flomax) 0.4 mg PO DAILY prostate 02/28/18 03/20/23 finasteride 5 mg tablet 5 mg PO DAILY bph 04/02/21 03/20/23 tiotropium 2.5 mcg-olodaterol 2.5 2 puff inhalation ONCE COPD 04/02/21 03/20/23 mcg/actuation mist for inhalation (Stiolto Respimat) ezetimibe 10 mg tablet 10 mg PO DAILY Cholesterol 09/04/21 03/20/23 pantoprazole 40 mg tablet,delayed 40 mg PO NEEDED PRN gerd 09/04/21 03/20/23 release bisoprolol fumarate 5 mg tablet See Rx Instructions .Route 03/20/23 03/20/23 .COMPLEX Hypertension lisinopril 2.5 mg tablet See Rx Instructions .Route 03/20/23 03/20/23 .COMPLEX Hypertension pitavastatin calci
--- NOTE | 2023-03-20 12:46 | PC.NURSE ---
DR GREEN AT BEDSIDE TO UPDATE PT ON POC
[2023-03-20 12:56] VITALS: BP 114/66; PULSE 57; RESP 10; TEMP 36.7; O2SAT 97
== END 2023-03-20 12:58 | disposition home or self-care (01) ==
PROVIDERS: Emergency Provider Student in an Organized Health Care Education/Training Program; PCP Family Medicine
DX: R07.9 Chest pain, unspecified (principal); J44.9 Chronic obstructive pulmonary disease, unspecified; I25.118 Atherosclerotic heart disease of native coronary artery with other forms of angina pectoris; I10 Essential (primary) hypertension; E78.5 Hyperlipidemia, unspecified; K21.9 Gastro-esophageal reflux disease without esophagitis; I25.2 Old myocardial infarction; N40.0 Benign prostatic hyperplasia without lower urinary tract symptoms; J45.909 Unspecified asthma, uncomplicated; Z87.891 Personal history of nicotine dependence
CPT/HCPCS: 71045; 80053; 84484; 85025; 93005; 99285

== ENCOUNTER 2023-09-09 14:41 | Outpatient (CLI) | payer OTHER, SELFPAY ==
--- NOTE | 2023-09-09 14:47 | CT_ITS ---
FINAL REPORT TECHNIQUE: Thin section axial images were obtained from the lung apices to the upper abdomen by computed tomography. Reformatted images were obtained and reviewed. This study was performed with techniques to keep radiation doses al low as reasonably achievable (ALARA). Individualized dose reduction techniques using automated exposure control or adjustment of mA and/or kV according to the patient's size were employed. CLINICAL HISTORY: H/O TOBACCO USE former smoker x 7 yrs 2ppd x 35 yrs COMPARISON: None FINDINGS: CHEST CT LOW DOSE 58-year-old male, former smoker who quit 7 years ago, [id number] history of smoking. CTDI vol (mGy): 2.9 DLP (mGy-cm): 115.42 There is no axillary adenopathy. There is no mediastinal or hilar mass or adenopathy. The heart is normal in size. There is a probable stent in the left coronary artery. There is no pericardial or pleural effusion. There is mild emphysema and mild pulmonary scarring. Lung window images demonstrate several small nodules in the anterior left upper lobe, measuring approximately 2 mm in size each. These are best seen on images #42, 44, and 45.. Limited images of the upper abdomen are unremarkable. IMPRESSION: Lung-RADS category 2. Recommend 12 month follow up low dose chest CT. Reviewed, Interpreted and Dictated by Shan Perrin III, MD Transcribed by Rivka Siddiqi Authenticated and . [facility]
== END 2023-09-09 23:59 ==
LOC: RAD 14:42
PROVIDERS: PCP Family Medicine; Visit Provider Family Medicine
DX: Z12.2 Encounter for screening for malignant neoplasm of respiratory organs (principal); Z87.891 Personal history of nicotine dependence
CPT/HCPCS: 71271

== ENCOUNTER 2023-10-12 14:33 | Outpatient (CLI) | payer OTHER, SELFPAY ==
[2023-10-21 10:54] LABS: Alpha-1-Antitrypsin 171 mg/dL (101-187)
[2023-10-21 12:39] LABS: Antinuclear Antibodies (ANA) Negative
== END 2023-10-12 23:59 ==
LOC: LAB 14:33
PROVIDERS: PCP Family Medicine; Visit Provider Internal Medicine Pulmonary Disease
DX: J84.89 Other specified interstitial pulmonary diseases (principal); J44.9 Chronic obstructive pulmonary disease, unspecified
CPT/HCPCS: 36415; 82103; 82104; 86038

== ENCOUNTER 2023-12-15 09:43 | Outpatient (CLI) | payer OTHER, SELFPAY ==
[2023-12-15 10:20] VITALS: PULSE 89; PULSE 92
[2023-12-15] MEDS: ALBUTEROL 0.083% 2.5 MG/3 ML NEB IH (10:20)
== END 2023-12-15 23:59 | disposition home or self-care (01) ==
PROVIDERS: PCP Family Medicine; Visit Provider Internal Medicine Pulmonary Disease
DX: R06.09 Other forms of dyspnea (principal); J44.9 Chronic obstructive pulmonary disease, unspecified
CPT/HCPCS: 94060; 94618; 94640; 94726; 94729

== ENCOUNTER 2024-06-12 14:45 | Emergency (ER) | payer OTHER, SELFPAY ==
[2024-06-12 15:03] VITALS: BMI 27.1
--- NOTE | 2024-06-12 15:04 | XR_ITS ---
PROCEDURE INFORMATION: Exam: XR Chest Exam date and time: 06/12/2024 3:18 PM Age: 59 years old Clinical indication: Shortness of breath; Additional info: Cough, SOA TECHNIQUE: Imaging protocol: Radiologic exam of the chest. Views: 2 views. COMPARISON: CT LUNG SCREENING 09/09/2023 2:50 PM FINDINGS: Lungs: Nodular 1.5 cm opacity projects over the left lung apex without definite correlate on lateral view, new since 09/09/2023 CT. No evidence of acute airspace infiltrate. No pulmonary edema. Pleural spaces: No visible pleural effusion. No pneumothorax. Heart/Mediastinum: Cardiomediastinal silouhette is within normal limits. Bones/joints: No evidence of acute osseous abnormality. IMPRESSION: 1. No acute findings. 2. Possible new 1.5 cm pulmonary nodule vs summation artifact.
[2024-06-12 15:20] VITALS: BP 119/67; PULSE 79; RESP 22; TEMP 36.7; O2SAT 96; BMI 29.9
--- NOTE | 2024-06-12 15:35 | ED_ITS ---
Discharge Plan Disposition Patient Disposition: Home, Self-Care Condition: Good Prescriptions Prescriptions: New azithromycin [Zithromax Z-Karl] 250 mg tablet See Rx Instructions .ROUTE .COMPLEX 5 Days Qty: 6 0RF Rx Instructions: For 250 mg dose pack: take 500 mg today (day 1), then 250 mg for 4 days (days 2-5) prednisone 20 mg tablet 20 mg PO BID 5 Days Qty: 10 0RF No Action tamsulosin [Flomax] 0.4 mg capsule 0.4 mg PO DAILY Breztri Aerosphere 160-9-4.8 mcg/actuation HFA aerosol inhaler 2 inh inhalation BID 90 Days Qty: 10.7 3RF albuterol sulfate 90 mcg/actuation HFA aerosol inhaler 2 inh inhalation QID PRN (Reason: shortness of breath or wheezing) 90 Days Qty: 8.5 2RF ipratropium-albuterol 0.5 mg-3 mg(2.5 mg base)/3 mL solution for nebulization See Rx Instructions .ROUTE .COMPLEX Qty: 270 0RF Dose Instruction: USE 3 ML IN NEBULIZER 4 TIMES DAILY NEEDED FOR SHORTNESS OF BREATH FOR WHEEZING Rx Instructions: USE 3 ML IN NEBULIZER 4 TIMES DAILY NEEDED FOR SHORTNESS OF BREATH FOR WHEEZING ezetimibe 10 MG tablet 10 mg PO DAILY pitavastatin calcium [Livalo] 2 mg tablet 2 mg PO DAILY Xarelto 2.5 mg tablet 2.5 mg PO BID bisoprolol fumarate 5 mg tablet See Rx Instructions .ROUTE .COMPLEX Rx Instructions: TAKE 1 TABLET BY MOUTH DAILY lisinopril 2.5 mg tablet See Rx Instructions .ROUTE .COMPLEX Rx Instructions: TAKE 1 TABLET BY MOUTH DAILY trazodone 50 mg tablet 50 mg PO HS Patient Comments: TAKE 1 TABLET BY MOUTH ONCE DAILY AT BEDTIME Referrals Follow up/Referrals: Malik Hayward MD [Primary Care Provider] - See instructions Activity Restrictions/Add. Instructions Additional Instructions/Restrictions: * Start antibiotic today. Be sure to complete entire prescription even if feeling better * Monitor temp. Tylenol every 4 hours as needed and / or ibuprofen every 6 hours as needed ( As long as your primary care physician has told you that it ok to take both. For fever/aches/pains ER if no less than 101 despite Tylenol or Motrin * Humidifier/vaporizer or hot steamy shower * Inhaler every 4-6 hours as needed like we discussed. If unsure how to use it, ask pharmacist to demonstrate how. Should help open airways and improve cough, wheezing, and shortness of breath * Mucinex for your cough Be sure to drink lots of water. *Start Prednisone today. Helps with inflammation therefore, cough and wheezing. Follow directions on the package. Reviewed side effects. Patient reports taking them before. Follow up IMMEDIATELY for new or worsening of symptoms OR no noticeable improvement over the next 48-72 hours. 911 immediately for any life threatening symptoms such as chest pain or difficulty breathing Clinical Impressions Clinical Impression: COPD exacerbation Instructions Patient Instructions: Chronic Obstructive Pulmonary Disease, Acute Bronchitis, Prednisone, DI for Pleurisy Print Language Print Language: Persian Discharge ED Provider: Juana Zhao [facility] General Stated complaint: soa hurts when breathing Mode of Arrival: Ambulatory Source of Information: Patient Limitations: No Limitations Time Seen by Provider: 06/12/24 15:36 Description of Symptoms (Recalled from Triage Doc. by RN): PATIENT C/O COUGH, SOA, AND RIB PAIN X 3 DAYS HEENT Symptoms (Recalled from RN notes): No Resp Symptoms (Recalled from RN notes): Yes Skin Symptoms (Recalled from RN notes): No MS Symptoms (Recalled from RN notes): Yes Functional Status (Recalled from RN notes): WNL History of Present Illness Provider Complaint: Patient states that he thinks he may have bronchitis or pneumonia States that he has been feeling a little SOA at times and having pain/discomfort in his left lung area when he takes a deep breath Denies fever but states he has been a little achy feeling and states that he isnt coughing much up states today when he was still not feeling any better he came in to get checked Related Data Home Medications ?Medication ?Instructions ?Recorded ?Confirmed tamsulosin 0.4 mg capsule (Flomax) 0.4 mg PO DAILY prostate 02/28/18 06/12/24 ezetimibe 10 mg tablet 10 mg PO DAILY Cholesterol 09/04/21 06/12/24 bisoprolol fumarate 5 mg tablet See Rx Instructions .Route 03/20/23 06/12/24 .COMPLEX Hypertension lisinopril 2.5 mg tablet See Rx Instructions .Route 03/20/23 06/12/24 .COMPLEX Hypertension pitavastatin calcium 2 mg tablet 2 mg PO DAILY hyperlipidemia 03/20/23 06/12/24 (Livalo) rivaroxaban 2.5 mg tablet (Xarelto) 2.5 mg PO BID heart health 03/20/23 06/12/24 trazodone 50 mg tablet 50 mg PO HS 06/12/24 06/12/24 Previous Rx's ?Medication ?Instructions ?Recorded budesonide 160 mcg-glycopyr 9 2 inh inhalation BID 90 days #10.7 03/15/24 mcg-formot 4.8 mcg/actuation HFA grams inhaler (Breztri Aerosphere) albuterol sulfate 90 mcg/actuation 2 inh inhalation QID PRN shortness 05/15/24 aerosol inhaler of breath or wheezing 90 days #8.5 grams ipratropium 0.5 mg-albuterol 3 mg See Rx Instructions .Route 06/05/24 (2.5 mg base)/3 mL nebulization .COMPLEX #270 mL soln azithromycin 250 mg tablet See Rx Instructions PO .COMPLEX 5 06/12/24 (Zithromax Z-Karl) days #6 tabs prednisone 20 mg tablet 20 mg PO BID 5 days #10 tabs 06/12/24 Allergies Allergy/AdvReac Type Severity Reaction Status Date / Time atorvastatin [From Lipitor] AdvReac Severe leg pain Verified 12/15/23 11:26 rosuvastatin [From Crestor] AdvReac Severe leg pain Verified 12/15/23 11:26 Vzucplq-ZKL-[id number] Reductase AdvReac Severe leg pain Verified 12/15/23 11:26 Inhibitor [Xhjujog-Lix-Ojk Reductase Inhibitor] Worker's Comp Is this a Worker's Comp case?: No [facility] Disclaimer: The information contained in this section may have been updated after the patient was seen, as this information can be updated by other users. Medical History History of smoking 30 or more pack years ILD (interstitial lung disease) Dyspnea on exertion BPH (benign prostatic hyperplasia) COPD (chronic obstructive pulmonary disease) Asthma History of heart attack Hyperlipidemia Hypertension Gastroesophageal reflux disease Chest pain Dizziness SOB (shortness of breath) on exertion Angina, class IV Surgical History History of heart artery stent History of tonsillectomy Family History Other Heart attack Social History Smoking Status: Former smoker second hand exposure: No alcohol intake: never substance use type: marijuana current occupational status: other Travel in the last 8 weeks: None household members: spouse housing: house current occupational exposures/hazards: No caffeine: Yes ROS Obtained: Yes All systems reviewed & no additional complaints except as documented and Yes Systems reviewed as appropriate & no additional complaints except as documented Constitutional Constitutional: Reports system reviewed and no additional complaints, except as documented, Reports as per HPI, Reports body ache, Denies chills and Denies fever(s) ENT Ears, Nose, Mouth, and Throat: Reports system reviewed and no additional complaints, except as documented, Reports as per HPI, Reports nasal congestion, Reports sinus pressure and Denies sore throat Cardiovascular Cardiovascular: Reports system reviewed and no additional complaints, except as documented and Reports as per HPI Respiratory Respiratory: Reports system reviewed and no additional complaints, except as documented, Reports as per HPI, Reports shortness of breath, Reports chest congestion, Reports cough and Reports pain on inspiration Gastrointestinal Gastrointestingal: Reports system reviewed and no additional complaints, except as documented and as per HPI Physical Exam General General appearance: alert and in no apparent distress ENT ENT exam: Present mucous membranes moist Expanded ENT Exam Nose exam: Present sinus tenderness Respiratory Respiratory exam: Present normal lung sounds bilaterally; Absent respiratory distress, wheezes or stridor Cardiovascular Cardiovascular exam: Present regular rate and normal rhythm Back Exam Back 1 view image: 2 1. reports achy like pain with respiration and cough, no bruising no swelling no discoloration Neurological Exam Neurological exam: Present alert, oriented X3 and normal gait Medical Decision Making Medical Records Screening: Per USPSTF and CDC recommendations, given the prevalence of disease in our region, it is our hospital?s policy to screen for HIV and viral Hepatitis for all patients aged 18 and over and those with ongoing risk factors. Darin Inquiry Pt receiving controlled substance: No Darin was queried for this patient: No Vital Signs: 06/12/24 15:20 Temperature 98.1 F Temperature Source Oral Pulse Rate [Left Brachial] 79 Respiratory Rate 22 Blood Pressure [Left Arm] 119/67 Blood Pressure Mean [Left Arm] 84 Blood Pressure Source [Left Arm] Automatic Cuff Blood Pressure Position [Left Arm] Sitting 02 Sat by Pulse Oximetry 96 Oxygen Delivery Method Room Air Orders (Tests/Meds): ORDERS Category Date Time Status Chest XR 2 view (NOT portable) [XR chest 2V] Stat Exams 06/12/24 15:04 Ordered Radiology Data #1: Image(s): Chest Image Reviewed: Yes I have reviewed radiologist's interpretation IMPRESSION: 1. No acute findings. 2. Possible new 1.5 cm pulmonary nodule vs summation artifact. Medical Decision Narrative: Patient sees pulmonology and has appointment next week Recommended F/U as soon as possible for further evaluation and exam due to finding of possible new 1.5cm pulmonary nodule vs summation artifact
[2024-06-12 16:57] VITALS: BP 119/67; PULSE 79; RESP 22; TEMP 36.7; O2SAT 96
== END 2024-06-12 16:59 | disposition home or self-care (01) ==
PROVIDERS: Emergency Provider Nurse Practitioner; PCP Family Medicine
DX: J44.1 Chronic obstructive pulmonary disease with (acute) exacerbation (principal)
CPT/HCPCS: 71046; 99213; G0381

== ENCOUNTER 2024-08-29 15:59 | Inpatient (IN) | payer OTHER, SELFPAY ==
[2024-08-29] VITALS (27 sets, daily range): BP systolic 86–156; BP diastolic 61–94; PULSE 69–155; RESP 12–25; TEMP 36.8–37.5; O2SAT 92–98; BMI 29.8
--- NOTE | 2024-08-29 16:01 | ECG_ITS ---
APPROVED REPORT Exam: Resting ECG HR:122 bpm ECG Measurements Heart Rate 122 AXES ME 132 P 31 QRSd 93 QRS -4 QT 282 T 35 QTc 355 Conclusion SINUS TACHYCARDIA WITH FREQUENT ECTOPIC PREMATURE COMPLEXES LOW QRS VOLTAGE IN EXTREMITY LEADS [QRS DEFLECTION < 0.5 mV IN LIMB LEADS] POSSIBLE INFERIOR MYOCARDIAL INFARCTION , OF INDETERMINATE AGE [30 ms Q WAVE IN II/aVF] ABNORMAL ECG UNCONFIRMED REPORT Electronically signed by : Brandyn Maldonado, 08/29/2024 22:29:23
--- NOTE | 2024-08-29 16:22 | XR_ITS ---
PROCEDURE INFORMATION: Exam: XR Chest Exam date and time: 08/29/2024 4:26 PM Age: 59 years old Clinical indication: Shortness of breath; Additional info: Shortness of air TECHNIQUE: Imaging protocol: Radiologic exam of the chest. Views: 1 view. COMPARISON: No relevant prior studies available. FINDINGS: Lungs: No evidence of acute pulmonary disease or infiltrates Pleural spaces: No large effusion or pneumothorax. Heart/Mediastinum: No evidence of mediastinal widening or cardiac silhouette enlargement; the mediastinum and heart appear within normal limits for contour and size. Bones/joints: No evidence of acute osseous abnormalities within the visualized portions of the thoracic spine and ribs. Osseous structures appear appropriate for patient age. IMPRESSION: No dense parenchymal consolidation, pleural effusion, or pneumothorax.
--- NOTE | 2024-08-29 16:23 | ED_ITS ---
Discharge Plan Disposition Patient Disposition: Admitted Condition: Good Clinical Impressions Clinical Impression: Influenza A, COPD exacerbation, Dyspnea, Atrial flutter with rapid ventricular response Discharge ED Provider: Matt Maldonado HPI <KETAN Hall - Last Filed: 08/29/24 19:35> General Chief Complaint: Shortness of Breath/Dyspnea Stated Complaint: SHORTNESS OF BREATH Time Seen by Provider: 08/29/24 16:16 Mode of Arrival: Ambulatory Source of Information: Patient Limitations: No Limitations Description of Symptoms (Recalled from ER Triage Doc. by RN): pt presents to ED with c/o shortness of air. symptoms began wednesday. cough, nasuea, vomit, shortness of breath, chills/sweats. History of Present Illness HPI narrative: 59-year-old male presents to the emergency department for shortness of breath cough, congestion recent sick contacts being worked, also episodes of nausea and vomiting subjective fever and chills for 2 to 3 days. Denies any overt chest pain does have history of coronary artery disease with status post 2 stent placements 16, he is currently on anticoagulation therapy with Xarelto and takes a daily aspirin, denies any nausea currently, denies any abdominal pain constipation diarrhea hematuria melena hematochezia or hematemesis, denies any urinary type symptomatology. He is a former smoker denies any alcohol or drug use, other past medical history consistent with COPD, hyperlipidemia, hypertension. Initial triage vitals notable for tachycardia, no tachypnea, patient is afebrile and SpO2 is 96% on room air. Onset (ago): day(s) Related Data Home Medications ?Medication ?Instructions ?Recorded ?Confirmed tamsulosin 0.4 mg capsule (Flomax) 0.4 mg PO DAILY prostate 02/28/18 06/15/24 ezetimibe 10 mg tablet 10 mg PO DAILY Cholesterol 09/04/21 06/15/24 bisoprolol fumarate 5 mg tablet See Rx Instructions .Route 03/20/23 06/15/24 .COMPLEX Hypertension lisinopril 2.5 mg tablet See Rx Instructions .Route 03/20/23 06/15/24 .COMPLEX Hypertension pitavastatin calcium 2 mg tablet 2 mg PO DAILY hyperlipidemia 03/20/23 06/15/24 (Livalo) rivaroxaban 2.5 mg tablet (Xarelto) 2.5 mg PO BID heart [facility] 03/20/23 06/15/24 trazodone 50 mg tablet 50 mg PO HS 06/12/24 06/15/24 Previous Rx's ?Medication ?Instructions ?Recorded budesonide 160 mcg-glycopyr 9 2 inh inhalation BID 90 days #10.7 03/15/24 mcg-formot 4.8 mcg/actuation HFA grams inhaler (Breztri Aerosphere) azithromycin 250 mg tablet See Rx Instructions PO .COMPLEX 5 06/12/24 (Zithromax Z-Karl) days #6 tabs prednisone 20 mg tablet 20 mg PO BID 5 days #10 tabs 06/12/24 albuterol sulfate 90 mcg/actuation 2 inh inhalation QID PRN shortness 07/24/24 aerosol inhaler of breath or wheezing 90 days #8.5 grams ipratropium 0.5 mg-albuterol 3 mg See Rx Instructions .Route 08/07/24 (2.5 mg base)/3 mL nebulization .COMPLEX #270 mL soln doxycycline hyclate 100 mg capsule 100 mg PO BID 5 days #10 caps 08/29/24 prednisone 20 mg tablet 40 mg (2 x 20 mg) PO DAILY 5 days 08/29/24 #10 tabs Allergies Allergy/AdvReac Type Severity Reaction Status Date / Time atorvastatin (From Lipitor) AdvReac Severe leg pain Verified 06/15/24 09:58 rosuvastatin (From Crestor) AdvReac Severe leg pain Verified 06/15/24 09:58 Ildnorx-FFZ-DrS Reductase AdvReac Severe leg pain Verified 06/15/24 09:58 Inhibitor (Gbglcdw-Lbm-Xxc Reductase Inhibitor) [facility] <KETAN Hall - Last Filed: 08/29/24 19:35> [facility] Disclaimer: The information contained in this section may have been updated after the patient was seen, as this information can be updated by other users. Medical History History of smoking 30 or more pack years ILD (interstitial lung disease) Dyspnea on exertion BPH (benign prostatic hyperplasia) COPD (chronic obstructive pulmonary disease) Asthma History of heart attack Hyperlipidemia Hypertension Gastroesophageal reflux disease Chest pain Dizziness SOB (shortness of breath) on exertion Angina, class IV Surgical History History of heart artery stent History of tonsillectomy Family History Other Heart attack Social History Smoking Status: Former smoker second hand exposure: No alcohol intake: never substance use type: marijuana current occupational status: other Travel in the last 8 weeks: None household members: spouse housing: house current occupational exposures/hazards: No caffeine: Yes Have you lived/traveled outside [place] in past 30 days?: No Contact w/someone who lives/traveled outside [place] past 30 days?: No Exposure to someone with infectious disease in past 14 days?: No Do you have a fever (greater than 100.4 F or 38 C)?: No Have you tested positive for COVID-19: No Exposed to someone with COVID-19 in past 14 days?: No Do you have a sore throat?: No Do you have a cough?: No Do you have any weakness?: No Do you have any diarrhea?: No Are you experiencing any unusual bleeding?: No Do you have any muscle aches/pain?: No Do you have any abdominal pain?: No Are you experiencing loss of taste or smell?: No Other Medical History Have you received the Flu Vaccine for this season: Yes Have you received the Pneumonia Vaccine: No <KETAN Hall - Last Filed: 08/29/24 19:35> ROS Obtained: Yes All systems reviewed & no additional complaints except as documented Physical Exam <KETAN Hall - Last Filed: 08/29/24 19:35> General General appearance: alert and in no apparent distress Head Head exam: atraumatic and normocephalic Eye Eye exam: Present PERRL and EOMI ENT ENT exam: Present mucous membranes moist Neck Neck exam: Present normal inspection Chest Chest inspection: Present normal inspection and symmetric chest wall rise Respiratory Respiratory exam: Present normal lung sounds bilaterally; Absent respiratory distress, wheezes or accessory muscle use Cardiovascular Cardiovascular exam: Present regular rate and normal rhythm Abdominal Exam Abdominal exam: Present soft; Absent tenderness, guarding, rebound or rigidity Extremities Exam Extremities exam: Present normal inspection Neurological Exam Neurological exam: Present alert and oriented X3 Psychiatric Psychiatric exam: Present normal affect Skin Skin exam: Present warm and dry HEART Score <KETAN Hall - Last Filed: 08/29/24 19:35> HEART Score HEART Score assessment performed?: Yes HEART Score: 3 <Matt Maldonado MD - Last Filed: 08/29/24 21:33> HEART Score History (anamnesis): Slightly suspicious ECG: Non-specific disturbance Age: 45-65 years Risk factors: 1-2 risk factors Troponin: </= normal limit HEART Score: 3 Procedures <Matt Maldonado MD - Last Filed: 08/29/24 21:33> Procedural Sedation A heart and lung assessment was performed on this patient at: 18:20 Mallampati Score:: Class I Indication: other (electrical cardioversion ) ASA Class: II Preparation: packing clerk applied, pulse oximeter, supplemental O2 applied, suction/airway equipment at bedside and IV secured Fentanyl: IV Fentanyl dose (mcg): 75 Midazolam: IV Midazolam dose (mg): 8 Miscellaneous Procedure Procedure Performed: Electrical cardioversion Indication A-fib RVR while anticoagulated Patient had anterior posterior pads that were placed he was given fentanyl and Versed for mild sedation electrical synchronized cardioversion was performed at 200 J without success this was repeated a few minutes later at 200 J again without success. There was a short period time where he went into sinus rhythm but he was refractory back into his atrial flutter/atrial fibrillation with RVR. Patient tolerated procedures well with no complications Critical Care <KETAN Hall - Last Filed: 08/29/24 19:35> Critical Care Time Critical Care Time: No <Matt Maldonado MD - Last Filed: 08/29/24 21:33> Critical Care Time Critical Care Time: Yes Attestation: On 08/29/24, the high probability of a clinically significant, sudden or life threatening deterioration of the following system(s) required my full and direct attention, intervention and personal management. The time I documented below is in addition to time spent performing reported procedures but includes the following listed in this critical care notation. Total Time Total Critical Care Time: 35 Medical Decision Making <KETAN Hall - Last Filed: 08/29/24 19:35> Medical Records Medical records reviewed: Yes I reviewed the patient's medical records. Darin Inquiry Pt receiving controlled substance: No Darin was queried for this patient: No Vital Signs Vital Signs: 08/29/24 15:59 08/29/24 17:00 08/29/24 17:30 Temperature 99.5 F Temperature Source Oral Pulse Rate 112 H 112 H Pulse Rate [Left Radial] 120 H Respiratory Rate 19 16 14 Blood Pressure 131/70 115/79 Blood Pressure [Right Arm] 156/85 H Blood Pressure Mean [Right Arm] 108 02 Sat by Pulse Oximetry 96 97 96 Oxygen Delivery Method Room Air Room Air Room Air Oxygen Flow Rate (LPM) 08/29/24 18:01 08/29/24 18:05 08/29/24 18:08 Temperature Temperature Source Pulse Rate 92 H 87 100 H Pulse Rate [Left Radial] Respiratory Rate 13 16 15 Blood Pressure 124/74 128/80 114/85 Blood Pressure [Right Arm] Blood Pressure Mean [Right Arm] 02 Sat by Pulse Oximetry 97 97 95 Oxygen Delivery Method Nasal Cannula Nasal Cannula Nasal Cannula Oxygen Flow Rate (LPM) 2 2 2 08/29/24 18:11 08/29/24 18:15 08/29/24 18:19 Temperature Temperature Source Pulse Rate 131 H 83 76 Pulse Rate [Left Radial] Respiratory Rate 16 13 17 Blood Pressure 127/76 116/94 H 128/74 Blood Pressure [Right Arm] Blood Pressure Mean [Right Arm] 02 Sat by Pulse Oximetry 96 95 92 L Oxygen Delivery Method Nasal Cannula Nasal Cannula Nasal Cannula Oxygen Flow Rate (LPM) 2 2 2 08/29/24 18:26 08/29/24 18:35 Temperature Temperature Source Pulse Rate 83 96 H Pulse Rate [Left Radial] Respiratory Rate 19 25 H Blood Pressure 109/80 L 118/79 Blood Pressure [Right Arm] Blood Pressure Mean [Right Arm] 02 Sat by Pulse Oximetry 94 L 95 Oxygen Delivery Method Nasal Cannula Nasal Cannula Oxygen Flow Rate (LPM) 2 2 Lab Data Lab results reviewed: Yes I reviewed the patient's lab results. Labs: Lab Results 08/29/24 16:06: WBC 8.3, RBC 5.69, Hgb 16.9, Hct 48.3, MCV 84.9, MCH 29.7, MCHC 35.0, RDW 13.4, Plt Count 165, MPV 10.0, Neut % (Auto) 86.5 H, Lymph % (Auto) 6.5 L, Woodson % (Auto) 6.4, Eos % (Auto) 0.0 L, Baso % (Auto) 0.1, Neut # (Auto) 7.2, Lymph # (Auto) 0.5 L, Woodson # (Auto) 0.5, Eos # (Auto) 0.0, Baso # (Auto) 0.0, Total Counted 100, Neutrophils % (Manual) 86 H, Lymphocytes % (Manual) 10, Monocytes % (Manual) 4, Platelet Estimate Normal, RBC Morphology Normal, Sodium 136, Potassium 4.1, Chloride 102, Carbon Dioxide 22, Anion Gap 16.1 H, BUN 11, Creatinine 1.20, Estimated Creat Clear 94, Estimated GFR 62, Est GFR ( Amer) 75, Glucose 124 H, Calcium 9.7, Magnesium 1.4 L, Total Bilirubin 0.8, AST 50, ALT 55, Alkaline Phosphatase 97, Troponin I < 0.01, NT-Pro-B Natriuret Pep 226 H, Total Protein 7.5, Albumin 4.5, Globulin 3.0, Albumin/Globulin Ratio 1.5, Lipase 82 08/29/24 16:45: SARS-CoV-2 (PCR) Not detected, Influenza A Untype (PCR) Detected A, Influenza Type B (PCR) Not detected 08/29/24 16:06 08/29/24 16:06 Response Orders (Tests/Meds): ED MEDICATIONS Generic Name Dose Route Start Last Admin Trade Name Freq PRN Reason Stop Dose Admin Acetaminophen 650 mg 08/29/24 19:44 Acetaminophen 325mg Tab PO 09/28/24 19:43 Q4HP PRN Fever or Mild Pain (1-3) Enoxaparin Sodium 100 mg 08/29/24 21:00 Enoxaparin 100mg/Ml Syringe 1 mg/kg (100 mg) 09/28/24 20:59 SUBCUT Q12H JASON Diltiazem HCl 100 mg/ Sodium 100 mls @ 5 mls/hr 08/29/24 18:37 08/29/24 20:34 Chloride IV 09/28/24 18:36 15 mg/hr .Q20H JASON 15 mls/hr Titration Protocol 5 MG/HR Ondansetron HCl 4 mg 08/29/24 19:44 Ondansetron 4mg/2ml Vial IV 09/28/24 19:43 Q8HP PRN Nausea Oseltamivir Phosphate 75 mg 08/29/24 21:00 Oseltamivir 75mg Capsule PO 09/03/24 09:01 BID JASON Discontinued Medications Generic Name Dose Route Start Last Admin Trade Name Malinda PRN Reason Stop Dose Admin Albuterol/Ipratropium 6 ml 08/29/24 16:26 08/29/24 16:40 Ipratropium/Albuterol 3 Ml Neb IH 08/29/24 16:27 6 ml ONCE ONE Administration Diltiazem HCl 20 mg 08/29/24 18:38 08/29/24 19:00 Diltiazem 125mg/25ml Vial IV 08/29/24 18:39 Not Given ONCE ONE Diltiazem HCl 20 mg 08/29/24 18:58 08/29/24 19:00 Diltiazem 25mg/5ml Vial IV 08/29/24 18:59 20 mg ONCE ONE Administration Fentanyl Citrate 75 mcg 08/29/24 18:37 08/29/24 18:39 Fentanyl 100mcg/2ml Vial IV 08/29/24 18:38 75 mcg ONCE ONE Administration Sodium Chloride 1,000 mls @ 999 mls/hr 08/29/24 18:34 08/29/24 18:37 Sod Chlor 0.9% 1000ml Bag IV 08/29/24 19:34 999 mls/hr .Q1H1M ONE Administration Magnesium Sulfate 2 gm in 50 mls @ 50 mls/hr 08/29/24 18:35 08/29/24 18:39 Magnesium Sulfate 2gm/50ml Premix IV 08/29/24 19:34 50 mls/hr ONCE ONE Administration Methylprednisolone Sodium Succinate 125 mg 08/29/24 16:26 08/29/24 16:39 Methylprednisolone Sod Succ 125mg Vial IV 08/29/24 16:27 125 mg ONCE ONE Administration Midazolam HCl 5 mg 08/29/24 18:37 08/29/24 18:39 Midazolam 5mg/Ml 1ml Vial IV 08/29/24 18:38 5 mg ONCE ONE Administration Midazolam HCl 3 mg 08/29/24 18:38 08/29/24 18:40 Midazolam 5mg/Ml 1ml Vial IV 08/29/24 18:39 3 mg ONCE ONE Administration ORDERS Category Date Time Status XR chest portable Stat Exams 08/29/24 16:22 Completed Complete Blood Count Auto Diff Stat Lab 08/29/24 16:06 Completed Comprehensive Metabolic Panel Stat Lab 08/29/24 16:06 Completed Hep C Ab with Reflex to RNA Stat Lab 08/29/24 16:06 Received Lipase Stat Lab 08/29/24 16:06 Completed Magnesium Stat Lab 08/29/24 16:06 Completed NT Pro Brain Natriuretic Pep. Stat Lab 08/29/24 16:06 Completed Rapid PCR Covid and Flu A/B Stat Lab 08/29/24 16:45 Completed Troponin I Q3H Lab 08/29/24 20:08 Completed Troponin I Q3H Lab 08/29/24 22:30 Ordered Troponin I Stat Lab 08/29/24 16:06 Completed MDM Narrative Medical Decision Narrative: 59-year-old male presents emerged part with shortness of air, differential diagnose include not limited to, cardiac arrhythmia, electrolyte disturbance, COPD exacerbation, acute CHF, pulmonary edema, pneumonia, ACS, viral bronchitis, other URI. Discussed patient case with attending physician Will obtain basic laboratory studies, lipase magnesium level proBNP, rapid PCR for COVID and flu, troponin, chest x-ray, and EKG, will give DuoNeb 6 mL per RT and will give 125 mg IV Solu-Medrol. CBC unremarkable Patient has anion gap that is present on CMP at 16.1 Minimal hypomagnesia mag 1.4 I reviewed the patient's chest x-ray along with the corresponding radiologic report no dense parenchymal consolidation pleural effusion or pneumothorax. pro BNP is minimally elevated to 26 troponin within normal limits. COVID-19 negative influenza B negative influenza A is positive. I will treat the patient with a short course of doxycycline 100 mg p.o. twice daily, as well as prednisone 40 mg p.o. for 5 days. For COPD exacerbation component of the patient's dyspnea, in the setting of influenza diagnosis. Recommend supportive care and continue with COPD nebulizer treatments at home. Patient was understanding of current treatment plan/discharge plan. Patient follow-up PCP as directed continue all of his at home medications. Strict ED return precaution given. Was notified by nursing staff upon discharge the patient having some tachycardia was noted being in A-fib atrial fibrillation/atrial flutter on the monitor at 180 bpm. I and the attending physician with the patient at bedside, patient states getting up to discharge he felt lightheaded, no history of cardiac arrhythmia to include atrial fibrillation is on Xarelto anticoagulation therapy. Pads were placed on the patient, all risk and benefits of synchronized cardioversion versus medical cardioversion discussed with the patient and family at the bedside patient elected to proceed with synchronized cardioversion, please see cardioversion/procedure note per attending physician Patient was given approximately 7 mg of IV Versed, 75 mcg of fentanyl, and contrast cardioversion was performed x 2 at 200 Joules, unfortunately. Patient still remains in atrial fibrillation/atrial flutter we will proceed with medical management of the patient's cardiac arrhythmia will start with IV diltiazem bolus of 20 mg, will give IV 1 L NS, as well as 2 g IV magnesium and start diltiazem IV infusion per protocol and admit the patient to the hospitalist service for new arrhythmia. I discussed this patient's case with the attending hospitalist at 7:30 PM he is agreement with the current admission plan/treatment plan for A-fib with RVR/new cardiac arrhythmia the setting of viral URI. <Matt Maldonado MD - Last Filed: 08/29/24 21:33> Vital Signs Vital Signs: 08/29/24 15:59 08/29/24 17:00 08/29/24 17:30 Temperature 99.5 F Temperature Source Oral Pulse Rate 112 H 112 H Pulse Rate [Left Radial] 120 H Respiratory Rate 19 16 14 Blood Pressure 131/70 115/79 Blood Pressure [Right Arm] 156/85 H Blood Pressure Mean [Right Arm] 108 02 Sat by Pulse Oximetry 96 97 96 Oxygen Delivery Method Room Air Room Air Room Air Oxygen Flow Rate (LPM) 08/29/24 18:01 08/29/24 18:05 08/29/24 18:08 Temperature Temperature Source Pulse Rate 92 H 87 100 H Pulse Rate [Left Radial] Respiratory Rate 13 16 15 Blood Pressure 124/74 128/80 114/85 Blood Pressure [Right Arm] Blood Pressure Mean [Right Arm] 02 Sat by Pulse Oximetry 97 97 95 Oxygen Delivery Method Nasal Cannula Nasal Cannula Nasal Cannula Oxygen Flow Rate (LPM) 2 2 2 08/29/24 18:11 08/29/24 18:15 08/29/24 18:19 Temperature Temperature Source Pulse Rate 131 H 83 76 Pulse Rate [Left Radial] Respiratory Rate 16 13 17 Blood Pressure 127/76 116/94 H 128/74 Blood Pressure [Right Arm] Blood Pressure Mean [Right Arm] 02 Sat by Pulse Oximetry 96 95 92 L Oxygen Delivery Method Nasal Cannula Nasal Cannula Nasal Cannula Oxygen Flow Rate (LPM) 2 2 2 08/29/24 18:26 08/29/24 18:35 Temperature Temperature Source Pulse Rate 83 96 H Pulse Rate [Left Radial] Respiratory Rate 19 25 H Blood Pressure 109/80 L 118/79 Blood Pressure [Right Arm] Blood Pressure Mean [Right Arm] 02 Sat by Pulse Oximetry 94 L 95 Oxygen Delivery Method Nasal Cannula Nasal Cannula Oxygen Flow Rate (LPM) 2 2 Lab Data Labs: Lab Results 08/29/24 16:06: WBC 8.3, RBC 5.69, Hgb 16.9, Hct 48.3, MCV 84.9, MCH 29.7, MCHC 35.0, RDW 13.4, Plt Count 165, MPV 10.0, Neut % (Auto) 86.5 H, Lymph % (Auto) 6.5 L, Woodson % (Auto) 6.4, Eos % (Auto) 0.0 L, Baso % (Auto) 0.1, Neut # (Auto) 7.2, Lymph # (Auto) 0.5 L, Woodson # (Auto) 0.5, Eos # (Auto) 0.0, Baso # (Auto) 0.0, Total Counted 100, Neutrophils % (Manual) 86 H, Lymphocytes % (Manual) 10, Monocytes % (Manual) 4, Platelet Estimate Normal, RBC Morphology Normal, Sodium 136, Potassium 4.1, Chloride 102, Carbon Dioxide 22, Anion Gap 16.1 H, BUN 11, Creatinine 1.20, Estimated Creat Clear 94, Estimated GFR 62, Est GFR ( Amer) 75, Glucose 124 H, Calcium 9.7, Magnesium 1.4 L, Total Bilirubin 0.8, AST 50, ALT 55, Alkaline Phosphatase 97, Troponin I < 0.01, NT-Pro-B Natriuret Pep 226 H, Total Protein 7.5, Albumin 4.5, Globulin 3.0, Albumin/Globulin Ratio 1.5, Lipase 82 08/29/24 16:45: SARS-CoV-2 (PCR) Not detected, Influenza A Untype (PCR) Detected A, Influenza Type B (PCR) Not detected Response Orders (Tests/Meds): ED MEDICATIONS Generic Name Dose Route Start Last Admin Trade Name Freq PRN Reason Stop Dose Admin Acetaminophen 650 mg 08/29/24 19:44 Acetaminophen 325mg Tab PO 09/28/24 19:43 Q4HP PRN Fever or Mild Pain (1-3) Enoxaparin Sodium 100 mg 08/29/24 21:00 Enoxaparin 100mg/Ml Syringe 1 mg/kg (100 mg) 09/28/24 20:59 SUBCUT Q12H JASON Diltiazem HCl 100 mg/ Sodium 100 mls @ 5 mls/hr 08/29/24 18:37 08/29/24 20:34 Chloride IV 09/28/24 18:36 15 mg/hr .Q20H JASON 15 mls/hr Titration Protocol 5 MG/HR Ondansetron HCl 4 mg 08/29/24 19:44 Ondansetron 4mg/2ml Vial IV 09/28/24 19:43 Q8HP PRN Nausea Oseltamivir Phosphate 75 mg 08/29/24 21:00 Oseltamivir 75mg Capsule PO 09/03/24 09:01 BID JASON Discontinued Medications Generic Name Dose Route Start Last Admin Trade Name Freq PRN Reason Stop Dose Admin Albuterol/Ipratropium 6 ml 08/29/24 16:26 08/29/24 16:40 Ipratropium/Albuterol 3 Ml Neb IH 08/29/24 16:27 6 ml ONCE ONE Administration Diltiazem HCl 20 mg 08/29/24 18:38 08/29/24 19:00 Diltiazem 125mg/25ml Vial IV 08/29/24 18:39 Not Given ONCE ONE Diltiazem HCl 20 mg 08/29/24 18:58 08/29/24 19:00 Diltiazem 25mg/5ml Vial IV 08/29/24 18:59 20 mg ONCE ONE Administration Fentanyl Citrate 75 mcg 08/29/24 18:37 08/29/24 18:39 Fentanyl 100mcg/2ml Vial IV 08/29/24 18:38 75 mcg ONCE ONE Administration Sodium Chloride 1,000 mls @ 999 mls/hr 08/29/24 18:34 08/29/24 18:37 Sod Chlor 0.9% 1000ml Bag IV 08/29/24 19:34 999 mls/hr .Q1H1M ONE Administration Magnesium Sulfate 2 gm in 50 mls @ 50 mls/hr 08/29/24 18:35 08/29/24 18:39 Magnesium Sulfate 2gm/50ml Premix IV 08/29/24 19:34 50 mls/hr ONCE ONE Administration Methylprednisolone Sodium Succinate 125 mg 08/29/24 16:26 08/29/24 16:39 Methylprednisolone Sod Succ 125mg Vial IV 08/29/24 16:27 125 mg ONCE ONE Administration Midazolam HCl 5 mg 08/29/24 18:37 08/29/24 18:39 Midazolam 5mg/Ml 1ml Vial IV 08/29/24 18:38 5 mg ONCE ONE Administration Midazolam HCl 3 mg 08/29/24 18:38 08/29/24 18:40 Midazolam 5mg/Ml 1ml Vial IV 08/29/24 18:39 3 mg ONCE ONE Administration ORDERS Category Date Time Status XR chest portable Stat Exams 08/29/24 16:22 Completed Complete Blood Count Auto Diff Stat Lab 08/29/24 16:06 Completed Comprehensive Metabolic Panel Stat Lab 08/29/24 16:06 Completed Hep C Ab with Reflex to RNA Stat Lab 08/29/24 16:06 Received Lipase Stat Lab 08/29/24 16:06 Completed Magnesium Stat Lab 08/29/24 16:06 Completed NT Pro Brain Natriuretic Pep. Stat Lab 08/29/24 16:06 Completed Rapid PCR Covid and Flu A/B Stat Lab 08/29/24 16:45 Completed Troponin I Q3H Lab 08/29/24 20:08 Completed Troponin I Q3H Lab 08/29/24 22:30 Ordered Troponin I Stat Lab 08/29/24 16:06 Completed
[2024-08-29 16:28] LABS: Basophils % 0.1 % (0.1-2.0); Hematocrit 48.3 % (42.0-52.0); Hemoglobin 16.9 g/dL (14.1-18.0); Lymphocytes # 0.5 K/mm3 (0.7-4.5); Lymphocytes % 6.5 % (10-50); Mean Corpuscular Hemoglobin 29.7 pg (27.0-31.2); Mean Corpuscular Volume 84.9 fl (80-94); Monocytes # 0.5 K/mm3 (0.1-1.0); Monocytes % 6.4 % (1.7-9.3); Neutrophils # 7.2 K/mm3 (1.8-7.8); Neutrophils % 86.5 % (37.0-80.0); Platelet Count 165 K/mm3 (142-424); Red Blood Count 5.69 M/mm3 (4.60-6.20); Red Cell Distribution Width 13.4 % (11.5-17.5); White Blood Count 8.3 K/mm3 (4.8-10.8)
[2024-08-29 16:32] LABS: Chloride 102 mmol/L (98-107); MANUAL DIFFERENTIAL MANUAL DIFFERENTIAL (MANUAL DIFF); Potassium 4.1 mmoL/L (3.5-5.1); Sodium 136 mmol/L (136-145)
[2024-08-29 16:34] LABS: Alanine Aminotransferase 55 U/L (12-78); Aspartate Amino Transferase 50 U/L (17-59); Blood Urea Nitrogen 11 mg/dl (9-20); Creatinine Clearance Estimated 94 mL/min (50-200); Estimated Glomerular Filt Rate 62 ml/min (>60); GFR (African American) 75 ML/MIN (>60)
[2024-08-29 16:35] LABS: Alkaline Phosphatase 97 U/L (38-126); Anion Gap 16.1 mEq/L (5-15); Bilirubin,Total 0.8 mg/dl (0.2-1.3); Calcium 9.7 mg/dl (8.4-10.2); Carbon Dioxide 22 mmol/L (22.0-30.0); Glucose 124 mg/dl (74-100); Lipase 82 U/L (23-300); Magnesium 1.4 mg/dl (1.6-2.3); Total Protein,Serum 7.5 g/dl (6.3-8.2)
[2024-08-29] MEDS: METHYLPREDNISOLONE SOD SUCC 125MG VIAL 125 MG IV (16:39)
[2024-08-29] MEDS: IPRATROPIUM/ALBUTEROL 3 ML NEB 6 ML IH (16:40)
[2024-08-29 16:44] LABS: NT Pro Brain Natriuretic Pep. 226 pg/mL (0-125)
[2024-08-29 16:50] LABS: Coronavirus 19, PCR Not Detected (NotDetected); Influenza B, PCR Not Detected (NotDetected)
[2024-08-29 16:50] LABS: Troponin I < 0.01 ng/ml (0.00-0.034)
[2024-08-29 16:57] LABS: Lymphocytes % 10 % (10-50); Monocytes % 4 % (2-9); Neutrophils % 86 % (42-76); Total Cells Counted 100
[2024-08-29 16:59] LABS: Platelet Estimate Normal; RBC Morphology Normal
[2024-08-29 17:14] LABS: Influenza A, PCR Detected (NotDetected)
[2024-08-29 17:17] LABS: Albumin Level 4.5 g/dl (3.5-5.0); Albumin/Globulin Ratio 1.5 (1.1-1.8)
--- NOTE | 2024-08-29 17:59 | ECG_ITS ---
APPROVED REPORT Exam: Resting ECG HR:191 bpm ECG Measurements Heart Rate 191 AXES QRSd 91 QRS 25 QT 215 T 33 QTc 313 Conclusion ATRIAL FIBRILLATION WITH RAPID VENTRICULAR RESPONSE WITH ABERRANT CONDUCTION OR VENTRICULAR PREMATURE COMPLEXES LOW QRS VOLTAGE IN EXTREMITY LEADS [QRS DEFLECTION < 0.5 mV IN LIMB LEADS] POSSIBLE INFERIOR MYOCARDIAL INFARCTION , PROBABLY OLD [30 ms Q WAVE IN II/aVF] CRITICAL TEST RESULT UNCONFIRMED REPORT Electronically signed by : Brandyn Maldonado, 08/29/2024 22:29:16
--- NOTE | 2024-08-29 18:25 | PC.NURSE ---
1804 pt noted to be in svt. notified. Code cart brought to bedside, placed onto pads. attempting vagal maneuvers unsuccessful BP 128/80, HR 200, o2 97% on 2L NC 1805 rosas watt to bedside. attempting vagals 1810 1l ns bolus initiated 1812 75mcg fentanyl, 2mg versed HR 178 1816 1 mg versed 1818 1 mg versed 1819 Cardioversion 200J 1820 HR returns to 170s-190s 1826 1mg versed 1827 1mg versed 1829 1 mg versed 1830 1 mg versed hr 199, bp 109/80, o2 93% on 3L NC 1831 Cardioversion 200J 1832 HR 118, BP 93/67, temp 98.9f 1833 HR returns to 170s-180s
[2024-08-29] MEDS: 0.9 % SODIUM CHLORIDE 1000ML 1,000 ML 999 ML IV (18:37)
[2024-08-29] MEDS: MIDAZOLAM 5MG/ML 1ML VIAL 5 MG IV (18:39)
[2024-08-29] MEDS: FENTANYL 100MCG/2ML VIAL 75 MCG IV (18:39)
[2024-08-29] MEDS: MAGNESIUM SULFATE IN WATER 2 GM/50 ML PIGGYBACK IV (18:39)
[2024-08-29] MEDS: MIDAZOLAM 5MG/ML 1ML VIAL 3 MG IV (18:40)
[2024-08-29] MEDS: dilTIAZem HCL 100 MG in 0.9 % SODIUM CHLORIDE 100 ML IV (18:50)
[2024-08-29] MEDS: dilTIAZem 25MG/5ML VIAL 20 MG IV (19:00)
--- NOTE | 2024-08-29 19:05 | PC.NURSE ---
HR now 114
--- NOTE | 2024-08-29 19:46 | PC.NURSE ---
report called to Enid Davis RN
--- NOTE | 2024-08-29 20:36 | P.HP_ITS ---
History of Present Illness *Admission Date: 08/29/24 *Reason for visit:: Shortness of breath *History of present illness: Malik Davis is a 59-year-old male with a medical history significant for COPD on room air, CAD with stents, hypertension, hyperlipidemia who presents for weakness and shortness of breath. He states he has been feeling shortness of breath mild productive cough for 3 days. He states everyone around him has been having flulike symptoms, and he has had nausea/vomiting, diarrhea that have since resolved. Denies chest pain, abdominal pain, dysuria. Workup in the ED significant for influenza A positive, magnesium 1.4, BNP 226, CXR without acute abnormalities. Patient was treated with breathing treatments, steroids after which she felt better and was about to be discharged from the ED. However, he developed lightheadedness and A-fib RVR up to 160 bpm. He was synchronized cardioverted twice in the ED with persistent A-fib RVR. Per patient, he had previously been cardioverted around apparently the time he had a heart attack in 2016 but does not know for what. He was initiated on IV diltiazem drip and continues to be in A-fib RVR in the 150s. Case discussed with ED provider and decision was made to admit patient for A-fib RVR. [facility] Disclaimer: The information contained in this section may have been updated after the patient was seen, as this information can be updated by other users. Medical History History of smoking 30 or more pack years ILD (interstitial lung disease) Dyspnea on exertion BPH (benign prostatic hyperplasia) COPD (chronic obstructive pulmonary disease) Asthma History of heart attack Hyperlipidemia Hypertension Gastroesophageal reflux disease Chest pain Dizziness SOB (shortness of breath) on exertion Angina, class IV Surgical History History of heart artery stent History of tonsillectomy Family History Other Heart attack Social History Smoking Status: Former smoker second hand exposure: No alcohol intake: never substance use type: marijuana current occupational status: other Travel in the last 8 weeks: None household members: spouse housing: house current occupational exposures/hazards: No caffeine: Yes Have you lived/traveled outside [place] in past 30 days?: No Contact w/someone who lives/traveled outside US past 30 days?: No Exposure to someone with infectious disease in past 14 days?: No Do you have a fever (greater than 100.4 F or 38 C)?: No Have you tested positive for COVID-19: No Exposed to someone with COVID-19 in past 14 days?: No Do you have a sore throat?: No Do you have a cough?: No Do you have any weakness?: No Do you have any diarrhea?: No Are you experiencing any unusual bleeding?: No Do you have any muscle aches/pain?: No Do you have any abdominal pain?: No Are you experiencing loss of taste or smell?: No Other Medical History Have you received the Flu Vaccine for this season: Yes Have you received the Pneumonia Vaccine: No Meds Home Medications and Allergies Home Medications ?Medication ?Instructions ?Recorded ?Confirmed ?Type tamsulosin 0.4 mg capsule (Flomax) 0.4 mg PO DAILY prostate 02/28/18 06/15/24 History ezetimibe 10 mg tablet 10 mg PO DAILY Cholesterol 09/04/21 06/15/24 History bisoprolol fumarate 5 mg tablet See Rx Instructions .Route 03/20/23 06/15/24 History .COMPLEX Hypertension lisinopril 2.5 mg tablet See Rx Instructions .Route 03/20/23 06/15/24 History .COMPLEX Hypertension pitavastatin calcium 2 mg tablet 2 mg PO DAILY hyperlipidemia 03/20/23 06/15/24 History (Livalo) rivaroxaban 2.5 mg tablet (Xarelto) 2.5 mg PO BID heart health 03/20/23 06/15/24 History budesonide 160 mcg-glycopyr 9 2 inh inhalation BID 90 days #10.7 03/15/24 06/15/24 Rx mcg-formot 4.8 mcg/actuation HFA grams inhaler (Breztri Aerosphere) azithromycin 250 mg tablet See Rx Instructions PO .COMPLEX 5 06/12/24 06/15/24 Rx (Zithromax Z-Karl) days #6 tabs prednisone 20 mg tablet 20 mg PO BID 5 days #10 tabs 06/12/24 06/15/24 Rx trazodone 50 mg tablet 50 mg PO HS 06/12/24 06/15/24 History albuterol sulfate 90 mcg/actuation 2 inh inhalation QID PRN shortness 07/24/24 Rx aerosol inhaler of breath or wheezing 90 days #8.5 grams ipratropium 0.5 mg-albuterol 3 mg See Rx Instructions .Route 08/07/24 Rx (2.5 mg base)/3 mL nebulization .COMPLEX #270 mL soln doxycycline hyclate 100 mg capsule 100 mg PO BID 5 days #10 caps 08/29/24 Rx prednisone 20 mg tablet 40 mg (2 x 20 mg) PO DAILY 5 days 08/29/24 Rx #10 tabs New Prescriptions to Start Prescriptions: doxycycline hyclate Anirudh Kahn prednisone Anirudh Kahn Allergies Allergy/AdvReac Type Severity Reaction Status Date / Time atorvastatin (From Lipitor) AdvReac Severe leg pain Verified 06/15/24 09:58 rosuvastatin (From Crestor) AdvReac Severe leg pain Verified 06/15/24 09:58 Nozbpbo-UEF-GhC Reductase AdvReac Severe leg pain Verified 06/15/24 09:58 Inhibitor (Kljrdmq-Bei-Jpu Reductase Inhibitor) Exam Data for Last 24 hours Vital signs and Labs for Last 24 Hours: Temp Pulse Resp BP Pulse Ox O2 Del Method O2 Flow Rate 99.5 F 155 H 13 121/76 95 Nasal Cannula 2 08/29/24 20:10 08/29/24 20:10 08/29/24 20:10 08/29/24 20:10 08/29/24 18:35 08/29/24 20:10 08/29/24 20:10 Laboratory Results - last 24 hr 08/29/24 16:06: WBC 8.3, RBC 5.69, Hgb 16.9, Hct 48.3, MCV 84.9, MCH 29.7, MCHC 35.0, RDW 13.4, Plt Count 165, MPV 10.0, Neut % (Auto) 86.5 H, Lymph % (Auto) 6.5 L, [place] % (Auto) 6.4, Eos % (Auto) 0.0 L, Baso % (Auto) 0.1, Neut # (Auto) 7.2, Lymph # (Auto) 0.5 L, [place] # (Auto) 0.5, Eos # (Auto) 0.0, Baso # (Auto) 0.0, Total Counted 100, Neutrophils % (Manual) 86 H, Lymphocytes % (Manual) 10, Monocytes % (Manual) 4, Platelet Estimate Normal, RBC Morphology Normal, Sodium 136, Potassium 4.1, Chloride 102, Carbon Dioxide 22, Anion Gap 16.1 H, BUN 11, Creatinine 1.20, Estimated Creat Clear 94, Estimated GFR 62, Est GFR ( Amer) 75, Glucose 124 H, Calcium 9.7, Magnesium 1.4 L, Total Bilirubin 0.8, AST 50, ALT 55, Alkaline Phosphatase 97, Troponin I < 0.01, NT-Pro-B Natriuret Pep 226 H, Total Protein 7.5, Albumin 4.5, Globulin 3.0, Albumin/Globulin Ratio 1.5, Lipase 82 08/29/24 16:45: SARS-CoV-2 (PCR) Not detected, Influenza A Untype (PCR) Detected A, Influenza Type B (PCR) Not detected I & O for Last 24 hours: Intake & Output 08/26/24 08/27/24 08/28/24 08/29/24 23:59 23:59 23:59 23:59 Intake Total 2.083 / 2.083 Balance 2.083 / 2.083 Weight 99.79 kg Constitutional Constitutional: no acute distress *Routine HEENT Exam Head: Present normocephalic Eye: Present EOMI and PERRL ENT: Present mucous membranes moist *Routine Neck Exam Neck: Present supple; Absent lymphadenopathy *Routine Respiratory Exam Respiratory: Present wheezes and diminished air movement; Absent CTA bilaterally *Routine Cardiovascular Exam Cardiovascular: Present tachycardia and irregular rhythm *Routine Abdominal Exam Abdominal: Present soft and normoactive bowel sounds; Absent tenderness *Routine Rectal Exam Rectal:: deferred *Routine Genitalia Exam Genitalia:: deferred *Routine Extremities Exam Extremities: Absent cyanosis, clubbing or edema *Routine Skin Exam Skin: Present warm; Absent rash *Routine Neurological Exam Neurological: Present alert and oriented X3 Assessment and Plan *Assessment and plan (1) Atrial flutter with rapid ventricular response: Status: Acute Category: Medical Code(s): I48.92 - Unspecified atrial flutter (2) COPD exacerbation: Status: Acute Category: Medical Code(s): J44.1 - Chronic obstructive pulmonary disease with (acute) exacerbation (3) Influenza A: Status: Acute Category: Medical Code(s): J10.1 - Influenza due to other identified influenza virus with other respiratory manifestations Plan Malik Davis is a 59-year-old male with a medical history significant for COPD on room air, CAD with stents, hypertension, hyperlipidemia who presents for weakness and shortness of breath. He states he has been feeling shortness of breath mild productive cough for 3 days. He states everyone around him has been having flulike symptoms, and he has had nausea/vomiting, diarrhea that have since resolved. Denies chest pain, abdominal pain, dysuria. Workup in the ED significant for influenza A positive, magnesium 1.4, BNP 226, CXR without acute abnormalities. Patient was treated with breathing treatments, steroids after which she felt better and was about to be discharged from the ED. However, he developed lightheadedness and A-fib RVR up to 160 bpm. He was synchronized cardioverted twice in the ED with persistent A-fib RVR. Per patient, he had previously been cardioverted around apparently the time he had a heart attack in 2016 but does not know for what. He was initiated on IV diltiazem drip and continues to be in A-fib RVR in the 150s. Case discussed with ED provider and decision was made to admit patient for A-fib RVR. #A-fib with RVR, new onset ? In the setting of COPD exacerbation, influenza A. History of CAD with stents. ? Cardioverted twice in the ED with minimal response. ? Initiated on diltiazem drip, uptitrated to 15 mg/h however with persistent RVR. ? Discussed case with Dr. Bhakta, recommended maximizing diltiazem drip to 20 mg/h and giving IV digoxin 500 mcg. ? Continue IV diltiazem 20 mg/h. Heart rate improved to 120-130. ? Ordered IV digoxin 500 mcg. ? IV metoprolol 5 mg for HR greater than 120. ? Started therapeutic Lovenox. Anticipate NOAC after cardiology evaluation. [id number] 2 for hypertension, CAD. ? Follow-up ECHO. ? Cardiology consulted, pending further recommendations. #Acute COPD exacerbation #Influenza A ? Levalbuterol and ipratropium every 6 hours, Pulmicort twice daily. ? Prednisone 40 mg day 2/5 starting tomorrow. ? Azithromycin day 08/27. ? Tamiflu 75 mg twice daily. ? On 2 L for comfort, wean as tolerated. Baseline no O2. #CAD with stents #History of [place] 2016 #Hyperlipidemia ? Aspirin, statin. Takes Xarelto 2.5 mg twice daily, but will likely be started on Eliquis for A-fib as above. #Hypertension ? Currently on diltiazem drip. Resume home medications when appropriate. Full code DVT prophylaxis: Therapeutic Lovenox as above
[2024-08-29 20:51] LABS: Troponin I < 0.01 ng/ml (0.00-0.034)
--- NOTE | 2024-08-29 21:07 | ECG_ITS ---
APPROVED REPORT Exam: Resting ECG HR:136 bpm ECG Measurements Heart Rate 136 AXES QRSd 96 QRS 18 QT 270 T -1 QTc 350 Conclusion ATRIAL FIBRILLATION WITH RAPID VENTRICULAR RESPONSE ABNORMAL RHYTHM ECG UNCONFIRMED REPORT Electronically signed by : Jesse Bajwa MD 09/02/2024 08:33:15
[2024-08-29] MEDS: OSELTAMIVIR 75MG CAPSULE 75 MG PO (21:33)
[2024-08-29] MEDS: ENOXAPARIN 100MG/ML SYRINGE 100 MG SUBCUT (21:34)
[2024-08-29] MEDS: BUDESONIDE 0.5MG/2ML NEB 0.5 MG IH (22:10)
[2024-08-29] MEDS: IPRATROPIUM BROMIDE 0.5 MG/2.5ML SOLUTION IH (22:10)
[2024-08-29] MEDS: LEVALBUTEROL 1.25MG/3ML NEB 1.25 MG IH (22:10)
[2024-08-29] MEDS: DIGOXIN 0.25MG/ML 2ML AMPUL 500 MCG IV (22:17)
[2024-08-29] MEDS: AZITHROMYCIN 500 MG in 0.9 % SODIUM CHLORIDE 250 ML 250 MG IV (22:24)
[2024-08-29] MEDS: dilTIAZem HCL 100 MG in 0.9 % SODIUM CHLORIDE 100 ML 15 MG IV (22:39)
[2024-08-29 23:47] LABS: Troponin I < 0.01 ng/ml (0.00-0.034)
[2024-08-30] VITALS (88 sets, daily range): BP systolic 100–199; BP diastolic 67–92; PULSE 53–121; RESP 8–32; TEMP 36.4–36.6; O2SAT 93–99
[2024-08-30 05:10] LABS: HCV Ab Non Reactive (Non Reactive)
[2024-08-30 06:05] LABS: Basophils % 0.2 % (0.1-2.0); Eosinophils % 0.2 % (0.1-12.0); Hematocrit 48.9 % (42.0-52.0); Hemoglobin 16.3 g/dL (14.1-18.0); Lymphocytes # 0.4 K/mm3 (0.7-4.5); Lymphocytes % 7.1 % (10-50); Mean Corpuscular HGB Conc 33.3 g/dL (31.8-35.4); Mean Platelet Volume 10.3 fl (7.4-10.4); Monocytes # 0.3 K/mm3 (0.1-1.0); Monocytes % 5.1 % (1.7-9.3); Neutrophils # 5.2 K/mm3 (1.8-7.8); Neutrophils % 86.9 % (37.0-80.0); Platelet Count 162 K/mm3 (142-424); Red Blood Count 5.62 M/mm3 (4.60-6.20); Red Cell Distribution Width 13.3 % (11.5-17.5)
[2024-08-30] MEDS: IPRATROPIUM BROMIDE 0.5 MG/2.5ML SOLUTION IH ×3 (06:10→18:10)
[2024-08-30] MEDS: BUDESONIDE 0.5MG/2ML NEB 0.5 MG IH ×2 (06:10→18:10)
[2024-08-30] MEDS: LEVALBUTEROL 1.25MG/3ML NEB 1.25 MG IH ×3 (06:10→18:10)
[2024-08-30 06:11] LABS: MANUAL DIFFERENTIAL MANUAL DIFFERENTIAL (MANUAL DIFF)
[2024-08-30 06:14] LABS: Cholesterol 179 mg/dl (140-200); HDL Cholesterol 37 mg/dl (40-60); Triglycerides 91 mg/dl (30-150); VLDL Cholesterol 18 mg/dL (0-40)
[2024-08-30 06:15] LABS: Chol/HDL Ratio 4.8 (1-3.5)
[2024-08-30 06:25] LABS: Direct LDL Cholesterol 114.09 mg/dL (100-129)
[2024-08-30 06:47] LABS: Thyroid Stimulating Hormone 0.58 uIU/mL (0.465-4.68)
[2024-08-30 06:58] LABS: Alanine Aminotransferase 45 U/L (12-78); Albumin/Globulin Ratio 1.5 (1.1-1.8); Alkaline Phosphatase 81 U/L (38-126); Anion Gap 14.9 mEq/L (5-15); Aspartate Amino Transferase 56 U/L (17-59); Bilirubin,Total 0.9 mg/dl (0.2-1.3); Blood Urea Nitrogen 16 mg/dl (9-20); Calcium 9.1 mg/dl (8.4-10.2); Carbon Dioxide 18 mmol/L (22.0-30.0); Chloride 105 mmol/L (98-107); Creatinine Clearance Estimated 113 mL/min (50-200); Estimated Glomerular Filt Rate 76 ml/min (>60); GFR (African American) 93 ML/MIN (>60); Globulin 2.7 g/dL (1.3-3.2); Glucose 133 mg/dl (74-100); Potassium 4.9 mmoL/L (3.5-5.1); Sodium 133 mmol/L (136-145); Total Protein,Serum 6.7 g/dl (6.3-8.2)
[2024-08-30 08:01] LABS: Lymphocytes % 11 % (10-50); Monocytes % 2 % (2-9); Neutrophils % 87 % (42-76); Platelet Estimate Normal; RBC Morphology Normal; Total Cells Counted 100
--- NOTE | 2024-08-30 09:29 | EXP.ACUTE.PN ---
Subjective *Date: 08/30/24 *Time: 20:06 Interval history: Patient feeling somewhat better today. Still short of breath however necessitating oxygen. Remains in A-fib, rate not at goal. Cardiology evaluating. Denies any chest pain, nausea, vomiting, confusion Medical Exam Vital signs and Labs for Last 24 Hours: Vital Signs Temp Pulse Pulse Resp BP BP Pulse Ox 08/30/24 07:00 94 H 17 109/78 L 96 08/30/24 07:00 08/30/24 06:10 102 H 08/30/24 06:10 108 H 08/30/24 06:10 96 08/30/24 06:01 73 11 L 199/67 H 98 08/30/24 06:00 101 H 119/67 97 08/30/24 05:36 112 H 131/83 96 08/30/24 05:30 94 H 13 96 08/30/24 05:00 08/30/24 05:00 87 13 131/83 98 08/30/24 04:31 96 H 14 97 08/30/24 04:30 84 13 108/77 L 97 08/30/24 04:00 08/30/24 04:00 70 18 126/90 98 08/30/24 04:00 97.6 F 65 108/77 L 97 08/30/24 03:31 78 11 L 112/82 97 08/30/24 03:00 08/30/24 03:00 83 14 116/70 97 08/30/24 03:00 91 H 126/81 96 08/30/24 02:31 67 12 116/74 97 08/30/24 02:01 75 8 L 108/72 L 97 08/30/24 01:36 100 H 134/88 98 08/30/24 01:30 75 29 H 137/75 98 08/30/24 01:00 67 32 H 123/82 97 08/30/24 01:00 08/30/24 00:30 91 H 14 117/71 96 08/30/24 00:23 115 H 102/71 L 97 08/30/24 00:00 97.8 F 08/30/24 00:00 08/30/24 00:00 58 L 17 102/71 L 98 08/29/24 23:31 105 H 13 108/63 L 97 08/29/24 23:18 104 H 14 95/61 L 97 01/07/25 23:18 95/61 L 08/29/24 23:15 103 H 24 110/74 97 08/29/24 23:13 126 H 12 110/67 97 08/29/24 23:00 114 H 20 116/77 97 08/29/24 23:00 08/29/24 22:30 76 12 106/77 L 97 08/29/24 22:17 150 H 08/29/24 22:12 140 H 14 93/61 L 97 08/29/24 22:09 130 H 08/29/24 22:09 126 H 08/29/24 22:09 96 08/29/24 22:00 82 12 86/69 L 96 08/29/24 21:31 69 12 106/80 L 96 08/29/24 21:00 92 H 13 109/68 L 97 08/29/24 21:00 08/29/24 20:41 98.2 F 08/29/24 20:30 89 13 109/75 L 98 08/29/24 20:10 99.5 F 155 H 13 121/76 08/29/24 20:00 73 13 121/76 97 08/29/24 20:00 08/29/24 18:35 96 H 25 H 118/79 95 08/29/24 18:26 83 19 109/80 L 94 L 08/29/24 18:19 76 17 128/74 92 L 08/29/24 18:15 83 13 116/94 H 95 08/29/24 18:11 131 H 16 127/76 96 08/29/24 18:08 100 H 15 114/85 95 08/29/24 18:05 87 16 128/80 97 08/29/24 18:01 92 H 13 124/74 97 08/29/24 17:30 112 H 14 115/79 96 08/29/24 17:00 112 H 16 131/70 97 08/29/24 15:59 99.5 F 120 H 19 156/85 H 96 O2 Del Method O2 Flow Rate 08/30/24 07:00 Nasal Cannula 4 08/30/24 07:00 Nasal Cannula 4 08/30/24 06:10 08/30/24 06:10 08/30/24 06:10 Nasal Cannula 2 08/30/24 06:01 Nasal Cannula 4 08/30/24 06:00 Nasal Cannula 08/30/24 05:36 Nasal Cannula 08/30/24 05:30 08/30/24 05:00 Nasal Cannula 4 08/30/24 05:00 Nasal Cannula 4 08/30/24 04:31 08/30/24 04:30 Nasal Cannula 4 08/30/24 04:00 Nasal Cannula 4 08/30/24 04:00 Nasal Cannula 4 08/30/24 04:00 Nasal Cannula 08/30/24 03:31 Nasal Cannula 4 08/30/24 03:00 Nasal Cannula 4 08/30/24 03:00 Nasal Cannula 4 08/30/24 03:00 Nasal Cannula 08/30/24 02:31 Nasal Cannula 4 08/30/24 02:01 Nasal Cannula 4 08/30/24 01:36 Nasal Cannula 08/30/24 01:30 Nasal Cannula 4 08/30/24 01:00 Nasal Cannula 4 08/30/24 01:00 Nasal Cannula 4 08/30/24 00:30 Nasal Cannula 4 08/30/24 00:23 Nasal Cannula 08/30/24 00:00 08/30/24 00:00 Nasal Cannula 4 08/30/24 00:00 Nasal Cannula 4 08/29/24 23:31 Nasal Cannula 4 08/29/24 23:18 Nasal Cannula 4 08/29/24 23:18 08/29/24 23:15 Nasal Cannula 4 08/29/24 23:13 Nasal Cannula 2 08/29/24 23:00 Nasal Cannula 4 08/29/24 23:00 Nasal Cannula 4 08/29/24 22:30 Nasal Cannula 3 08/29/24 22:17 08/29/24 22:12 08/29/24 22:09 08/29/24 22:09 08/29/24 22:09 Nasal Cannula 2 08/29/24 22:00 Nasal Cannula 3 08/29/24 21:31 Nasal Cannula 3 08/29/24 21:00 Nasal Cannula 3 08/29/24 21:00 Nasal Cannula 3 08/29/24 20:41 08/29/24 20:30 Nasal Cannula 3 08/29/24 20:10 Nasal Cannula 2 08/29/24 20:00 Nasal Cannula 3 08/29/24 20:00 Nasal Cannula 3 08/29/24 18:35 Nasal Cannula 2 08/29/24 18:26 Nasal Cannula 2 08/29/24 18:19 Nasal Cannula 2 08/29/24 18:15 Nasal Cannula 2 08/29/24 18:11 Nasal Cannula 2 08/29/24 18:08 Nasal Cannula 2 08/29/24 18:05 Nasal Cannula 2 08/29/24 18:01 Nasal Cannula 2 08/29/24 17:30 Room Air 08/29/24 17:00 Room Air 08/29/24 15:59 Room Air Intake and Output 08/29/24 08/30/24 08/30/24 23:59 07:59 15:59 Intake Total 46.500 / 296.500 554.25 / 554.25 Output Total 500 / 500 Balance 46.500 / 296.500 54.25 / 54.25 Intake: Intake, Oral Amount 240 / 240 Intake, Total IV Amount 46.500 / 296.500 314.25 / 314.25 Azithromycin 500 mg In 0.9 % 250 / 250 Sodium Chloride 250 ml @ 250 mls/hr IV Q24H [facility] Rx#: [id number] Output: Output, Urine Amount 500 / 500 Other: Number of Unmeasured Voids 0 Weight 100.698 kg Patient Weight 08/30/24 23:59 Weight 100.698 kg Laboratory Results - last 24 hr 08/29/24 16:06: WBC 8.3, RBC 5.69, Hgb 16.9, Hct 48.3, MCV 84.9, MCH 29.7, MCHC 35.0, RDW 13.4, Plt Count 165, MPV 10.0, Neut % (Auto) 86.5 H, Lymph % (Auto) 6.5 L, [place] % (Auto) 6.4, Eos % (Auto) 0.0 L, Baso % (Auto) 0.1, Neut # (Auto) 7.2, Lymph # (Auto) 0.5 L, [place] # (Auto) 0.5, Eos # (Auto) 0.0, Baso # (Auto) 0.0, Total Counted 100, Neutrophils % (Manual) 86 H, Lymphocytes % (Manual) 10, Monocytes % (Manual) 4, Platelet Estimate Normal, RBC Morphology Normal, Sodium 136, Potassium 4.1, Chloride 102, Carbon Dioxide 22, Anion Gap 16.1 H, BUN 11, Creatinine 1.20, Estimated Creat Clear 94, Estimated GFR 62, Est GFR ( Amer) 75, Glucose 124 H, Calcium 9.7, Magnesium 1.4 L, Total Bilirubin 0.8, AST 50, ALT 55, Alkaline Phosphatase 97, Troponin I < 0.01, NT-Pro-B Natriuret Pep 226 H, Total Protein 7.5, Albumin 4.5, Globulin 3.0, Albumin/Globulin Ratio 1.5, Lipase 82, Hepatitis C Antibody Non reactive 08/29/24 16:45: SARS-CoV-2 (PCR) Not detected, Influenza A Untype (PCR) Detected A, Influenza Type B (PCR) Not detected 08/29/24 20:08: Troponin I < 0.01 08/29/24 22:40: Troponin I < 0.01 08/30/24 05:38: WBC 6.0 D, RBC 5.62, Hgb 16.3, Hct 48.9, MCV 87.0, MCH 29.0, MCHC 33.3, RDW 13.3, Plt Count 162, MPV 10.3, Neut % (Auto) 86.9 H, Lymph % (Auto) 7.1 L, [place] % (Auto) 5.1, Eos % (Auto) 0.2, Baso % (Auto) 0.2, Neut # (Auto) 5.2, Lymph # (Auto) 0.4 L, [place] # (Auto) 0.3, Eos # (Auto) 0.0, Baso # (Auto) 0.0, Total Counted 100, Neutrophils % (Manual) 87 H, Lymphocytes % (Manual) 11, Monocytes % (Manual) 2, Platelet Estimate Normal, RBC Morphology Normal, Sodium 133 L, Potassium 4.9, Chloride 105, Carbon Dioxide 18 L, Anion Gap 14.9, BUN 16 D, Creatinine 1.00, Estimated Creat Clear 113, Estimated GFR 76, Est GFR ( Amer) 93 D, Glucose 133 H, Hemoglobin A1c 5.0, Calcium 9.1, Magnesium 2.0 D, Total Bilirubin 0.9, AST 56, ALT 45, Alkaline Phosphatase 81, Total Protein 6.7, Albumin 4.0 D, Globulin 2.7, Albumin/Globulin Ratio 1.5, Triglycerides 91, Cholesterol 179, LDL Cholesterol Direct 114.09, VLDL Cholesterol 18, HDL Cholesterol 37 L, Cholesterol/HDL Ratio 4.8 H, TSH 0.58 I & O for Labs for Last 24 Hours: Intake & Output 08/27/24 08/28/24 08/29/24 08/30/24 23:59 23:59 23:59 23:59 Intake Total 46.500 / 296.500 554.25 / 554.25 Output Total 500 / 500 Balance 46.500 / 296.500 54.25 / 54.25 Weight 99.79 kg 100.698 kg Constitutional: Present mild distress, obese and cooperative Head: Present atraumatic and normocephalic ENT: Present normal exam Respiratory: Present prolonged expiratory phase and normal respiratory effort; Absent accessory muscle use, rhonchi, wheezes or crackles Cardiac: Present Tachycardia Comment:: Irregularly irregular GI: Present soft and normal bowel sounds; Absent distention or tenderness Extremities: Present normal inspection and full ROM Skin: Present intact; Absent erythema Neuro: Present Grossly Intact, alert, awake, oriented x 3 and moves all extremities Assessment and Plan *Assessment and plan (1) Atrial flutter with rapid ventricular response: Status: Acute Category: Medical Code(s): I48.92 - Unspecified atrial flutter (2) COPD exacerbation: Status: Acute Category: Medical Code(s): J44.1 - Chronic obstructive pulmonary disease with (acute) exacerbation (3) Influenza A: Status: Acute Category: Medical Code(s): J10.1 - Influenza due to other identified influenza virus with other respiratory manifestations (4) HFrEF (heart failure with reduced ejection fraction): Status: Acute Category: Medical Code(s): I50.20 - Unspecified systolic (congestive) heart failure (5) Hypertension: Status: Acute Qualifiers: Hypertension type: primary hypertension Qualified Code(s): I10 - Essential (primary) hypertension Category: Medical Code(s): I10 - Essential (primary) hypertension (6) History of smoking 30 or more pack years: Status: Acute Category: Social Hx Code(s): Z87.891 - Personal history of nicotine dependence (7) Chronic obstructive lung disease: Status: Acute Qualifiers: COPD type: unspecified COPD Qualified Code(s): J44.9 - Chronic obstructive pulmonary disease, unspecified Category: Medical Code(s): J44.9 - Chronic obstructive pulmonary disease, unspecified Plan Malik Davis is a 59-year-old male with a medical history significant for COPD on room air, CAD with stents, hypertension, hyperlipidemia who presents for weakness and shortness of breath. He states he has been feeling shortness of breath mild productive cough for 3 days. He states everyone around him has been having flulike symptoms, and he has had nausea/vomiting, diarrhea that have since resolved. Denies chest pain, abdominal pain, dysuria. Workup in the ED significant for influenza A positive, magnesium 1.4, BNP 226, CXR without acute abnormalities. Patient was treated with breathing treatments, steroids after which she felt better and was about to be discharged from the ED. However, he developed lightheadedness and A-fib RVR up to 160 bpm. He was synchronized cardioverted twice in the ED with persistent A-fib RVR. Per patient, he had previously been cardioverted around apparently the time he had a heart attack in 2016 but does not know for what. He was initiated on IV diltiazem drip and continues to be in A-fib RVR in the 150s. Case discussed with ED provider and decision was made to admit patient for A-fib RVR. Dilt drip stopped. Cardiology seeing patient today. Echo with reduced EF. Transition to amnio. Continues to require inpatient management. Problems addressed as follows: #A-fib with RVR, new onset # CAD # HFrEF # Hypertension ? In the setting of COPD exacerbation, influenza A. History of CAD with stents. ? Cardioverted twice in the ED with minimal response. - Echo obtained showing EF 45%. Discontinue diltiazem drip. Cardiology recommends initiating amiodarone drip. Continue metoprolol succinate 100 mg twice daily. - In light of decreased ejection fraction, no plan for invasive cath at this time. Known history of coronary artery disease. Would benefit from ischemic eval as an outpatient. - Continue Lovenox 1 mg/kg twice daily while admitted, plan to transition to NOAC at discharge - [id number] 2 for hypertension, CAD. -White count 6, hemoglobin 16, TSH 0.58. Kidney function normal with BUN 16, creatinine 1. Repeat CBC, CMP, magnesium ordered for the morning #Acute COPD exacerbation #Influenza A ? Levalbuterol and ipratropium every 6 hours, Pulmicort twice daily. ? Prednisone 40 mg day 2/5 ? Azithromycin day 2/5. ? Tamiflu 75 mg twice daily. ? On 2 L for comfort, wean as tolerated. On room air at baseline, goal sats greater 90%. #CAD with stents #History of [place] 2015 #Hyperlipidemia ? Aspirin, statin. Takes Xarelto 2.5 mg twice daily Full code DVT prophylaxis: Therapeutic Lovenox as above Cardiac diet
[2024-08-30] MEDS: ENOXAPARIN 100MG/ML SYRINGE 100 MG SUBCUT ×2 (09:59→20:32)
[2024-08-30] MEDS: ASPIRIN EC 81MG TABLET 81 MG PO (09:59)
[2024-08-30] MEDS: OSELTAMIVIR 75MG CAPSULE 75 MG PO ×2 (09:59→20:32)
[2024-08-30] MEDS: dilTIAZem HCL 100 MG in 0.9 % SODIUM CHLORIDE 100 ML 15 MG IV (12:26)
--- NOTE | 2024-08-30 13:00 | PC.NURSE ---
per Maria Luz Bhagat pt has an abnormal EF and will need to be taken off the Diltiazem and changed to Amiodorone
[2024-08-30] MEDS: METOPROLOL SUCCINATE XL 100MG TABLET 100 MG PO ×2 (13:14→20:32)
[2024-08-30] MEDS: AMIODARONE HCL 150 MG in DEXTROSE 5 % IN WATER 100 ML 618 MG IV (13:14)
[2024-08-30] MEDS: AMIODARONE HCL 900 MG in DEXTROSE 5 % IN WATER 500 ML 17.27 MG IV (13:37)
--- NOTE | 2024-08-30 13:51 | EXP.CARD.CON ---
History of Present Illness History of Present Illness Consult date: 08/30/24 Requesting physician: Brandyn Cedillo Consult reason: shortness of breath Chief complaint: SOA History of present illness: This is a 59-year-old white gentleman presented to the emergency department complaints of shortness of breath. The patient states that he was short of breath for approximately 3 days prior to his admission. He states he had a mild nonproductive cough associated with the shortness of breath. He states initially he had some nausea, vomiting and diarrhea as well but this has resolved. The patient states that he was just feeling very poorly so he decided to come to the emergency department because he figured he had COVID or the flu. He denied any chest pain or pressure. He denied any lower extremity edema. He denied any fever, chills, PND orthopnea. In the emergency department the patient was found to have influenza A and he was actually getting ready to be discharged from the emergency department after getting breathing treatment and steroids. He developed a dizziness and then went into atrial fibrillation with RVR. His heart rate got up to the 190s while in atrial fibrillation. They attempted cardioversion twice which was unsuccessful. The patient has been started on a diltiazem drip and remains in atrial fibrillation with RVR this morning but his rate is better and down to around 100 bpm. He states his shortness of breath has significantly improved since being in the hospital. [facility] Disclaimer: The information contained in this section may have been updated after the patient was seen, as this information can be updated by other users. Medical History (Updated 08/30/24 @ 14:08 by Maria Luz Bhagat APRN) HFrEF (heart failure with reduced ejection fraction) Coronary arteriosclerosis Atrial fibrillation with RVR History of smoking 30 or more pack years ILD (interstitial lung disease) Dyspnea on exertion BPH (benign prostatic hyperplasia) COPD (chronic obstructive pulmonary disease) Asthma History of heart attack Hyperlipidemia Hypertension Gastroesophageal reflux disease Chest pain Dizziness SOB (shortness of breath) on exertion Angina, class IV Surgical History History of heart artery stent History of tonsillectomy Family History Other Heart attack Social History Smoking Status: Former smoker second hand exposure: No alcohol intake: never substance use type: marijuana current occupational status: other Travel in the last 8 weeks: None household members: spouse housing: house current occupational exposures/hazards: No caffeine: Yes Have you lived/traveled outside [place] in past 30 days?: No Contact w/someone who lives/traveled outside US past 30 days?: No Exposure to someone with infectious disease in past 14 days?: No Do you have a fever (greater than 100.4 F or 38 C)?: No Have you tested positive for COVID-19: No Exposed to someone with COVID-19 in past 14 days?: No Do you have a sore throat?: No Do you have a cough?: No Do you have any weakness?: No Do you have any diarrhea?: No Are you experiencing any unusual bleeding?: No Do you have any muscle aches/pain?: No Do you have any abdominal pain?: No Are you experiencing loss of taste or smell?: No Review of Systems Review of Systems Review of systems:: pertinent systems reviewed and negative unless documented below Constitutional Constitutional: Reports system reviewed and no additional complaints, except as documented, Reports fatigue and Reports lethargy Eyes Eyes: Reports system reviewed and no additional complaints, except as documented ENT Ears, Nose, Mouth, and Throat: Reports system reviewed and no additional complaints, except as documented and Reports dizziness *Cardiovascular Cardiovascular: Reports system reviewed and no additional complaints, except as documented, Denies chest pain, Reports dyspnea and Reports dyspnea on exertion *Respiratory Respiratory: Reports system reviewed and no additional complaints, except as documented, Reports cough, Reports dyspnea and Reports dyspnea on exertion *Gastrointestinal Gastrointestinal: Reports system reviewed and no additional complaints, except as documented *Genitourinary Genitourinary: Reports system reviewed and no additional complaints, except as documented *Musculoskeletal Musculoskeletal: Reports system reviewed and no additional complaints, except as documented Integumentary/Breasts Skin/Breast: Reports system reviewed and no additional complaints, except as documented *Neurologic Neurologic: Reports system reviewed and no additional complaints, except as documented and Reports dizziness Psychiatric Psychiatric: Reports system reviewed and no additional complaints, except as documented Endocrine Endocrine: Reports system reviewed and no additional complaints, except as documented and Reports fatigue Hematologic/Lymphatic Hematologic/Lymphatic: Reports system reviewed and no additional complaints, except as documented Allergic/Immunologic Allergic/Immunologic: Reports system reviewed and no additional complaints, except as documented Exam Data for Last 24 hours Vital signs and Labs for Last 24 Hours: Temp Pulse Resp BP Pulse Ox O2 Del Method O2 Flow Rate 97.6 F 91 H 18 101/82 L 97 Nasal Cannula 2 08/30/24 04:00 08/30/24 11:01 08/30/24 11:01 08/30/24 11:01 08/30/24 11:01 08/30/24 08:00 08/30/24 08:00 Laboratory Results - last 24 hr 08/29/24 16:06: WBC 8.3, RBC 5.69, Hgb 16.9, Hct 48.3, MCV 84.9, MCH 29.7, MCHC 35.0, RDW 13.4, Plt Count 165, MPV 10.0, Neut % (Auto) 86.5 H, Lymph % (Auto) 6.5 L, [place] % (Auto) 6.4, Eos % (Auto) 0.0 L, Baso % (Auto) 0.1, Neut # (Auto) 7.2, Lymph # (Auto) 0.5 L, [place] # (Auto) 0.5, Eos # (Auto) 0.0, Baso # (Auto) 0.0, Total Counted 100, Neutrophils % (Manual) 86 H, Lymphocytes % (Manual) 10, Monocytes % (Manual) 4, Platelet Estimate Normal, RBC Morphology Normal, Sodium 136, Potassium 4.1, Chloride 102, Carbon Dioxide 22, Anion Gap 16.1 H, BUN 11, Creatinine 1.20, Estimated Creat Clear 94, Estimated GFR 62, Est GFR ( Amer) 75, Glucose 124 H, Calcium 9.7, Magnesium 1.4 L, Total Bilirubin 0.8, AST 50, ALT 55, Alkaline Phosphatase 97, Troponin I < 0.01, NT-Pro-B Natriuret Pep 226 H, Total Protein 7.5, Albumin 4.5, Globulin 3.0, Albumin/Globulin Ratio 1.5, Lipase 82, Hepatitis C Antibody Non reactive 08/29/24 16:45: SARS-CoV-2 (PCR) Not detected, Influenza A Untype (PCR) Detected A, Influenza Type B (PCR) Not detected 08/29/24 20:08: Troponin I < 0.01 08/29/24 22:40: Troponin I < 0.01 08/30/24 05:38: WBC 6.0 D, RBC 5.62, Hgb 16.3, Hct 48.9, MCV 87.0, MCH 29.0, MCHC 33.3, RDW 13.3, Plt Count 162, MPV 10.3, Neut % (Auto) 86.9 H, Lymph % (Auto) 7.1 L, [place] % (Auto) 5.1, Eos % (Auto) 0.2, Baso % (Auto) 0.2, Neut # (Auto) 5.2, Lymph # (Auto) 0.4 L, [place] # (Auto) 0.3, Eos # (Auto) 0.0, Baso # (Auto) 0.0, Total Counted 100, Neutrophils % (Manual) 87 H, Lymphocytes % (Manual) 11, Monocytes % (Manual) 2, Platelet Estimate Normal, RBC Morphology Normal, Sodium 133 L, Potassium 4.9, Chloride 105, Carbon Dioxide 18 L, Anion Gap 14.9, BUN 16 D, Creatinine 1.00, Estimated Creat Clear 113, Estimated GFR 76, Est GFR ( Amer) 93 D, Glucose 133 H, Hemoglobin A1c 5.0, Calcium 9.1, Magnesium 2.0 D, Total Bilirubin 0.9, AST 56, ALT 45, Alkaline Phosphatase 81, Total Protein 6.7, Albumin 4.0 D, Globulin 2.7, Albumin/Globulin Ratio 1.5, Triglycerides 91, Cholesterol 179, LDL Cholesterol Direct 114.09, VLDL Cholesterol 18, HDL Cholesterol 37 L, Cholesterol/HDL Ratio 4.8 H, TSH 0.58 I & O for Last 24 hours: Intake & Output 08/27/24 08/28/24 08/29/24 08/30/24 23:59 23:59 23:59 23:59 Intake Total 46.500 / 296.500 590.000 / 590.000 Output Total 500 / 500 Balance 46.500 / 296.500 90.000 / 90.000 Weight 220 lb 222 lb Constitutional Constitutional: no acute distress and average body habitus *Routine HEENT Exam Head: Present normocephalic and atraumatic ENT: Present mucous membranes moist *Routine Neck Exam Neck: Present supple, full ROM and normal carotid upstroke; Absent JVD, carotid bruit or lymphadenopathy *Routine Respiratory Exam Respiratory: Present CTA bilaterally, normal respiratory effort, able to speak in complete sentences and symmetric chest movement *Routine Cardiovascular Exam Cardiovascular: Present Normal S1, Normal S2, tachycardia and irregularly irregular; Absent murmur or gallop *Routine Abdominal Exam Abdominal: Present soft and normoactive bowel sounds; Absent tenderness, distended or organomegaly *Routine Extremities Exam Extremities: Present full ROM, pulses intact and normal capillary refill; Absent cyanosis, clubbing or edema *Routine Skin Exam Skin: Present intact and warm; Absent erythema *Routine Neurological Exam Neurological: Present alert, oriented X3 and CN II-XII intact; Absent sensory deficit or motor deficit Routine Psychiatric Exam Psychiatric: Present normal affect Meds Home Medications and Allergies Home Medications ?Medication ?Instructions ?Recorded ?Confirmed ?Type tamsulosin 0.4 mg capsule (Flomax) 0.8 mg PO DAILY prostate 02/28/18 08/30/24 History ezetimibe 10 mg tablet 10 mg PO DAILY Cholesterol 09/04/21 08/30/24 History bisoprolol fumarate 5 mg tablet See Rx Instructions .Route 03/20/23 08/30/24 History .COMPLEX Hypertension lisinopril 2.5 mg tablet See Rx Instructions .Route 03/20/23 08/30/24 History .COMPLEX Hypertension pitavastatin calcium 2 mg tablet 2 mg PO DAILY hyperlipidemia 03/20/23 08/30/24 History (Livalo) rivaroxaban 2.5 mg tablet (Xarelto) 2.5 mg PO BID heart health 03/20/23 08/30/24 History budesonide 160 mcg-glycopyr 9 2 inh inhalation BID 90 days #10.7 03/15/24 08/30/24 Rx mcg-formot 4.8 mcg/actuation HFA grams inhaler (Breztri Aerosphere) trazodone 50 mg tablet 50 mg PO HS 06/12/24 08/30/24 History albuterol sulfate 90 mcg/actuation 2 inh inhalation QID PRN shortness 07/24/24 08/30/24 Rx aerosol inhaler of breath or wheezing 90 days #8.5 grams ipratropium 0.5 mg-albuterol 3 mg See Rx Instructions .Route 08/07/24 08/30/24 Rx (2.5 mg base)/3 mL nebulization .COMPLEX #270 mL soln New Prescriptions to Start Prescriptions: Allergies Allergy/AdvReac Type Severity Reaction Status Date / Time atorvastatin (From Lipitor) AdvReac Severe leg pain Verified 06/15/24 09:58 rosuvastatin (From Crestor) AdvReac Severe leg pain Verified 06/15/24 09:58 Mmlmsca-NMP-QcC Reductase AdvReac Severe leg pain Verified 06/15/24 09:58 Inhibitor (Rcjpntl-Ldy-Jen Reductase Inhibitor) Assessment and Plan *Assessment and plan (1) Atrial fibrillation with RVR: Status: Acute Category: Medical Code(s): I48.91 - Unspecified atrial fibrillation (2) HFrEF (heart failure with reduced ejection fraction): Status: Acute Category: Medical Code(s): I50.20 - Unspecified systolic (congestive) heart failure (3) Coronary arteriosclerosis: Status: Chronic Category: Medical Code(s): I25.10 - Atherosclerotic heart disease of viejas coronary artery without angina pectoris (4) Influenza A: Status: Acute Category: Medical Code(s): J10.1 - Influenza due to other identified influenza virus with other respiratory manifestations (5) COPD exacerbation: Status: Acute Category: Medical Code(s): J44.1 - Chronic obstructive pulmonary disease with (acute) exacerbation (6) Dizziness: Status: Chronic Category: Medical Code(s): R42 - Dizziness and giddiness (7) Hyperlipidemia: Status: Chronic Qualifiers: Hyperlipidemia type: mixed hyperlipidemia Qualified Code(s): E78.2 - Mixed hyperlipidemia Category: Medical Code(s): E78.5 - Hyperlipidemia, unspecified (8) Stented coronary artery: Status: Chronic Category: Surgical Code(s): Z95.5 - Presence of coronary angioplasty implant and graft (9) Chronic obstructive lung disease: Status: Acute Qualifiers: COPD type: unspecified COPD Qualified Code(s): J44.9 - Chronic obstructive pulmonary disease, unspecified Category: Medical Code(s): J44.9 - Chronic obstructive pulmonary disease, unspecified (10) Hypertension: Status: Acute Qualifiers: Hypertension type: primary hypertension Qualified Code(s): I10 - Essential (primary) hypertension Category: Medical Code(s): I10 - Essential (primary) hypertension Plan Plan: 1. The patient was admitted to the hospital with atrial fibrillation with RVR. He was initially started on diltiazem drip. The patient's EF is 45% so he should not be on the diltiazem drip. Will stop the diltiazem and switch him over to an amiodarone drip with bolus prior to initiation since he has been in atrial fibrillation for less than 24 hours. 2. If the patient is in atrial fibrillation for greater than 48 hours we will stop the amiodarone drip and try to achieve rate control with other medications. 3. Start Toprol-XL 100 mg p.o. twice daily for suppression of the atrial fibrillation. 4. Echocardiogram shows an ejection fraction of 45%. The patient's ejection fraction was previously 50 to 55% so he has had a slight decrease in his ejection fraction. 5. The patient has a history of known coronary artery disease. He denies any chest pain or pressure. He ruled out for an [place]. No plans for invasive left cardiac catheterization at this time. 6. He would likely benefit from an ischemic evaluation on an outpatient basis once he is discharged from the hospital. 7. His blood pressure is acceptable. 8. His LDL goal is less than 55. He is on Livalo. His LDL is 114. 9. The patient is on anticoagulation with Lovenox. We do recommend 1 mg/kg subcu twice daily and then he will be switched over to Xarelto or Eliquis prior to discharge home. 10. Further recommendations will be made pending the patient's response to treatment. Thank you for the opportunity to help participate in the care of this patient. All recommendations and orders are per Dr. Guardado.
--- NOTE | 2024-08-30 18:24 | PC.NURSE ---
pt is alert and oriented x 4. pt was able to be weaned to 3L NC successfully with O2 sats ranging from 95-98%. pt diltiazem drip was discontinued due to his EF%. pt switched to an amiodarone per Maria Luz Bhagat. tolerated well. pt tolerated ambulating to the bedside commode t/o the shift. no complaints at this time.
[2024-08-30] MEDS: AZITHROMYCIN 500 MG in 0.9 % SODIUM CHLORIDE 250 ML 250 MG IV (21:35)
--- NOTE | 2024-08-30 22:19 | CA_ITS ---
APPROVED REPORT EXAM: Comprehensive 2D, Doppler, and color-flow Echocardiogram Scientist Electronics: Trang Mackay CRT Ht: 6 ft 0 in Wt: 220lbs BSA: 2.22 BP: 118/79 mmHg Indications: COPD, Shortness of Breath, Atrial Fibrillation, Hyperlipidemia, Hypertension/HDD + Flu A, 50% ef on cath 03/02/18, stent with cardioversion, Pt cardioverted x 2 in er last night 2D Dimensions LA Volume 29.40 mL LA Volume Index 13.00 mL/m2 (M/F) 16-34 M-Mode Dimensions RVDd 3.13 cm (0.9-2.6) LA Diam 3.24 cm (1.9-4.0) LVDd 4.94 cm (3.5-5.7) LVDs 3.59 cm (3.5-5.7) IVSd 1.39 cm (0.6-1.1) PWd 0.62 cm (0.6-1.1) EF (Teich) 53.00% FS 27.30% EDV (Teich) 115.00 mL TAPSE 2.20 (<1.7) ESV (Teich) 54.10 mL LV Diastology E Decel Time 160 (160-240 msec) E/A Ratio 2.86 MED A' 2.60 cm/s LAT A' 4.30 cm/s Aortic Valve AO Peak GR. 7.40 mmHg Mitral Valve MV E Max Demond. 68.0 (40-130 cm/s) MV A Velocity 24.0 (40-130 cm/s) E/A Ratio 2.86 MV PHT 47.0 ms Tricuspid Valve TR P. Velocity 149.00 cm/s RAP Estimate 10.00 mmHg RVSP 18.90 mmHg Left Ventricle The left ventricle is normal size. Left ventricular systolic function is mildly decreased. There is increased LV wall thickness. The septum is asynchronous. Diastolic function is indeterminate. LVEF is 45%. Right Ventricle The right ventricle is normal size. The right ventricular systolic function is normal. Atria The left atrium size is normal. The right atrium size is normal. There is no Doppler evidence of interatrial shunt. Aortic Valve The aortic valve is mildly thickened. There is no aortic valvular stenosis. No aortic regurgitation is present. Mitral Valve The mitral valve is normal in structure. No evidence of mitral valve stenosis. Mild mitral regurgitation. Tricuspid Valve Tricuspid valve is grossly normal in structure and function. Trace tricuspid regurgitation. There is insufficient TR to estimate RVSP. Pulmonic Valve The pulmonary valve is normal in structure. Trace pulmonic regurgitation. Great Vessels The aortic root is normal in size. The ascending aorta is normal in size. IVC is normal in size and collapses >50% with inspiration. Pericardium There is no pericardial effusion. Other Information Study Quality: Fair Conclusion Mildly reduced LV systolic function (LVEF 45%). Asynchronous septum. Mild MR. Electronically signed by : Danna Guardado MD 08/30/2024 12:02:13
[2024-08-31] VITALS (40 sets, daily range): BP systolic 89–116; BP diastolic 56–82; PULSE 52–99; RESP 10–27; TEMP 36.4–36.6; O2SAT 91–99; BMI 29.5
[2024-08-31] MEDS: LEVALBUTEROL 1.25MG/3ML NEB 1.25 MG IH ×3 (01:37→11:41)
[2024-08-31] MEDS: IPRATROPIUM BROMIDE 0.5 MG/2.5ML SOLUTION IH ×3 (01:37→11:41)
--- NOTE | 2024-08-31 06:12 | PC.NURSE ---
Addendum entered by Tico Davis RN 08/31/24 06:50: Patient assessed by respiratory after breathing treatment. Patient O2 removed due to O2 sats at 97% and placed on room air. Original Note: Patient alert and oriented x4. Patient without complaints overnight. Oxygen weaned down to 2L with O2 sats maintaining in mid 90s. LCTA, slightly diminished in bases. Heart rhythm remains in AFIB, but controlled rate at this time. Patient was able to stand at side of bed and give self bath. HR ond oxygen saturation remained stable with exertion. AMIO titrated down to 0.5mg per order in OCT at 1915. Patient denies pain and does not have any complaints at this time.
[2024-08-31] MEDS: BUDESONIDE 0.5MG/2ML NEB 0.5 MG IH (06:25)
[2024-08-31 06:44] LABS: Basophils % 0.1 % (0.1-2.0); Eosinophils % 0.1 % (0.1-12.0); Hemoglobin 16.5 g/dL (14.1-18.0); Lymphocytes # 1.3 K/mm3 (0.7-4.5); Lymphocytes % 14.4 % (10-50); Mean Corpuscular HGB Conc 33.7 g/dL (31.8-35.4); Mean Corpuscular Hemoglobin 29.3 pg (27.0-31.2); Mean Corpuscular Volume 86.9 fl (80-94); Mean Platelet Volume 10.3 fl (7.4-10.4); Monocytes # 0.6 K/mm3 (0.1-1.0); Monocytes % 6.9 % (1.7-9.3); Neutrophils # 7.3 K/mm3 (1.8-7.8); Neutrophils % 78.2 % (37.0-80.0); Platelet Count 185 K/mm3 (142-424); Red Blood Count 5.64 M/mm3 (4.60-6.20); Red Cell Distribution Width 13.3 % (11.5-17.5); White Blood Count 9.3 K/mm3 (4.8-10.8)
[2024-08-31 07:01] LABS: Alanine Aminotransferase 44 U/L (12-78); Albumin Level 3.7 g/dl (3.5-5.0); Albumin/Globulin Ratio 1.4 (1.1-1.8); Alkaline Phosphatase 83 U/L (38-126); Anion Gap 11.7 mEq/L (5-15); Aspartate Amino Transferase 55 U/L (17-59); Bilirubin,Total 0.6 mg/dl (0.2-1.3); Blood Urea Nitrogen 26 mg/dl (9-20); Calcium 9.2 mg/dl (8.4-10.2); Carbon Dioxide 26 mmol/L (22.0-30.0); Chloride 102 mmol/L (98-107); Creatinine Clearance Estimated 111 mL/min (50-200); Estimated Glomerular Filt Rate 76 ml/min (>60); GFR (African American) 93 ML/MIN (>60); Globulin 2.7 g/dL (1.3-3.2); Glucose 100 mg/dl (74-100); Potassium 4.7 mmoL/L (3.5-5.1); Sodium 135 mmol/L (136-145); Total Protein,Serum 6.4 g/dl (6.3-8.2)
[2024-08-31] MEDS: ENOXAPARIN 100MG/ML SYRINGE 100 MG SUBCUT (07:46)
[2024-08-31] MEDS: OSELTAMIVIR 75MG CAPSULE 75 MG PO (07:47)
[2024-08-31] MEDS: ASPIRIN EC 81MG TABLET 81 MG PO (07:47)
[2024-08-31] MEDS: METOPROLOL SUCCINATE XL 100MG TABLET 100 MG PO (07:47)
[2024-08-31 08:15] LABS: Magnesium 2.1 mg/dl (1.6-2.3)
--- NOTE | 2024-08-31 10:02 | ECG_ITS ---
APPROVED REPORT Exam: Resting ECG HR:94 bpm ECG Measurements Heart Rate 94 AXES QRSd 103 QRS 2 QT 346 T 45 QTc 398 Conclusion ATRIAL FIBRILLATION LOW QRS VOLTAGE IN EXTREMITY LEADS [QRS DEFLECTION < 0.5 mV IN LIMB LEADS] PROBABLE INFERIOR MYOCARDIAL INFARCTION , PROBABLY OLD [35 ms Q WAVE IN II/aVF] ABNORMAL ECG UNCONFIRMED REPORT Electronically signed by : ANTOINE BENÍTEZ, 09/01/2024 05:42:18
--- NOTE | 2024-08-31 12:11 | P.PN_ITS ---
Subjective Subjective Date: 08/31/24 Time: 10:00 Principal diagnosis: afib with RVR, influenza A Interval history: This is a 59-year-old gentleman who presented to the emergency department with complaints of shortness of breath. He was found to have influenza A. The patient was also in atrial fibrillation with RVR. He remains rate controlled on an amiodarone drip and oral metoprolol. However the patient has not converted to sinus rhythm on the amiodarone drip so it will have to be discontinued. This morning he states he is feeling much better. He states he is still short of breath but it is much improved. He denies any chest pain or pressure. He is still having episodes of dizziness intermittently but is also better. He denies any fever, chills, nausea, vomiting, diarrhea, PND orthopnea. He states he is ready to be discharged home today. Exam Data for Last 24 hours Vital signs and Labs for Last 24 Hours: Temp Pulse Resp BP Pulse Ox O2 Del Method O2 Flow Rate 97.5 F L 60 10 L 94/69 L 94 L Room Air 2 08/31/24 08:00 08/31/24 12:00 08/31/24 09:00 08/31/24 12:00 08/31/24 12:00 08/31/24 11:43 08/31/24 06:25 Laboratory Results - last 24 hr 08/31/24 05:44: WBC 9.3 D, RBC 5.64, Hgb 16.5, Hct 49.0, MCV 86.9, MCH 29.3, M CHC 33.7, RDW 13.3, Plt Count 185, MPV 10.3, Neut % (Auto) 78.2, Lymph % (Auto) 14.4, [place] % (Auto) 6.9, Eos % (Auto) 0.1, Baso % (Auto) 0.1, Neut # (Auto) 7.3, Lymph # (Auto) 1.3, [place] # (Auto) 0.6, Eos # (Auto) 0.0, Baso # (Auto) 0.0, Sodium 135 L, Potassium 4.7, Chloride 102, Carbon Dioxide 26, Anion Gap 11.7, BUN 26 H D, Creatinine 1.00, Estimated Creat Clear 111, Estimated GFR 76, Est GFR ( Amer) 93, Glucose 100, Calcium 9.2, Magnesium 2.1, Total Bilirubin 0.6, AST 55, ALT 44, Alkaline Phosphatase 83, Total Protein 6.4, Albumin 3.7, Globulin 2.7, Albumin/Globulin Ratio 1.4 I & O for Last 24 hours: Intake & Output 08/28/24 08/29/24 08/30/24 08/31/24 23:59 23:59 23:59 23:59 Intake Total 46.500 / 174.590 7650.407 / 2284.407 772.003 / 772.003 Output Total 1450 / 1450 350 / 350 Balance 46.500 / 296.500 334.407 / 834.407 422.003 / 422.003 Weight 220 lb 222 lb 218 lb Constitutional Constitutional: no acute distress and average body habitus *Routine HEENT Exam Head: Present normocephalic and atraumatic ENT: Present mucous membranes moist *Routine Neck Exam Neck: Present supple, full ROM and normal carotid upstroke; Absent JVD, carotid bruit or lymphadenopathy *Routine Respiratory Exam Respiratory: Present CTA bilaterally, normal respiratory effort, able to speak in complete sentences and symmetric chest movement *Routine Cardiovascular Exam Cardiovascular: Present Normal S1, Normal S2 and irregularly irregular; Absent murmur or gallop *Routine Abdominal Exam Abdominal: Present soft and normoactive bowel sounds; Absent tenderness, distended or organomegaly *Routine Extremities Exam Extremities: Present full ROM, pulses intact and normal capillary refill; Absent cyanosis, clubbing or edema *Routine Skin Exam Skin: Present intact and warm; Absent erythema *Routine Neurological Exam Neurological: Present alert, oriented X3 and CN II-XII intact; Absent sensory deficit or motor deficit Routine Psychiatric Exam Psychiatric: Present normal affect Progress Note: A&P Assessment and plan (1) Atrial flutter with rapid ventricular response: Status: Acute (2) COPD exacerbation: Status: Acute (3) Influenza A: Status: Acute (4) HFrEF (heart failure with reduced ejection fraction): Status: Acute (5) Hypertension: Status: Acute (6) History of smoking 30 or more pack years: Status: Acute (7) Chronic obstructive lung disease: Status: Acute (8) Atrial fibrillation with RVR: Status: Acute (9) Hyperlipidemia: Status: Chronic Assessment and Plan Assessment and Plan for All Diagnoses:: Plan: 1. The patient was admitted to the hospital with atrial fibrillation with RVR. He was initially started on diltiazem drip. The patient's EF is 45% so the diltiazem was discontinued and he was switched to an amiodarone drip. The patient remains in atrial fibrillation at this time. We do not want the patient to be on the amiodarone if he has been in atrial fibrillation greater than 48 hours. It will be 48 hours at 6 PM tonight. We will go ahead and stop the amiodarone drip since he has not converted. Rate control is the goal for the patient at this time. 2. Continue high-dose metoprolol for rate control of atrial fibrillation. 3. Will start him on Xarelto 20 mg p.o. daily for anticoagulation. Stop Loveno x. 4. The patient's ejection fraction is 45%. This is slightly decreased from his previous of 50-55. 5. The patient has a history of known coronary artery disease. He denies any chest pain or pressure. He ruled out for an [place]. No plans for invasive left cardiac catheterization at this time. He would benefit from an outpatient ischemic evaluation once he is discharged from the hospital. 6. His blood pressure is acceptable. 7. His LDL goal is less than 55. He is on Livalo. His LDL is 114. 8. No further recommendations at this time from a cardiac standpoint. The patient can be discharged home today from a cardiac standpoint. He will need to follow-up in [address] Clay for consideration of repeat cardioversion after being on high-dose metoprolol and having the infusion of amiodarone. 9. The patient can be discharged on the following cardiac medications: Aspirin 81 mg daily, Xarelto 20 mg daily, metoprolol succinate 100 mg p.o. twice daily, Livalo 2 mg daily, Zetia 10 mg daily. Stop bisoprolol and stop lisinopril. Thank you for the opportunity to help participate in the care of this patient. All recommendations and orders are per Dr. Guardado.
--- NOTE | 2024-08-31 14:11 | P.DS_ITS ---
General Admission date:: 08/29/24 Discharge date: 08/31/24 HPI HPI HPI: Malik Davis is a 59-year-old male with a medical history significant for COPD on room air, CAD with stents, hypertension, hyperlipidemia who presents for weakness and shortness of breath. He states he has been feeling shortness of breath mild productive cough for 3 days. He states everyone around him has been having flulike symptoms, and he has had nausea/vomiting, diarrhea that have since resolved. Denies chest pain, abdominal pain, dysuria. Workup in the ED significant for influenza A positive, magnesium 1.4, BNP 226, CXR without acute abnormalities. Patient was treated with breathing treatments, steroids after which she felt better and was about to be discharged from the ED. However, he developed lightheadedness and A-fib RVR up to 160 bpm. He was synchronized cardioverted twice in the ED with persistent A-fib RVR. Per patient, he had previously been cardioverted around apparently the time he had a heart attack in 2015 but does not know for what. He was initiated on IV diltiazem drip and continues to be in A-fib RVR in the 150s. Case discussed with ED provider and decision was made to admit patient for A-fib RVR. Hospital Course Hospital Course Hospital Course: Malik Davis is a 59-year-old male with a medical history significant for COPD on room air, CAD with stents, hypertension, hyperlipidemia who presents for weakness and shortness of breath. He states he has been feeling shortness of breath mild productive cough for 3 days. He states everyone around him has been having flulike symptoms, and he has had nausea/vomiting, diarrhea that have since resolved. Denies chest pain, abdominal pain, dysuria. Workup in the ED significant for influenza A positive, magnesium 1.4, BNP 226, CXR without acute abnormalities. Patient was treated with breathing treatments, steroids after which she felt better and was about to be discharged from the ED. However, he developed lightheadedness and A-fib RVR up to 160 bpm. He was synchronized cardioverted twice in the ED with persistent A-fib RVR. Per patient, he had previously been cardioverted around apparently the time he had a heart attack in 2015 but does not know for what. He was initiated on IV diltiazem drip and continues to be in A-fib RVR in the 150s. Case discussed with ED provider and decision was made to admit patient for A-fib RVR. Cardiology was consulted during admission. Diltiazem was discontinued due to HFrEF on echo. Amiodarone also stopped. Patient was transition to metoprolol with improved rate control. Still in A-fib at discharge but doing well. Anticipate improvement with resolution of flu. Follow-up as an outpatient. Problems addressed as follows: #A-fib with RVR, new onset # CAD # HFrEF # Hypertension ? In the setting of COPD exacerbation, influenza A. History of CAD with stents. Cardioverted twice in the ED with minimal response. Echo obtained showing EF 45%. Discontinue diltiazem drip. In light of decreased ejection fraction, no plan for invasive cath at this time. Known history of coronary artery disease. Would benefit from ischemic eval as an outpatient. [id number] 2 for hypertension, CAD.Admitted with A-fib with RVR. Initially on dill drip. Echo showed EF of 45% so Dilt was discontinued and he was switched to amiodarone. Remained in A-fib. Cardiology recommends however switching to metoprolol succinate 100 mg twice daily for rate control. Will not discharge on amiodarone. Initiate Xarelto 20 mg daily for anticoagulation. Stop his home bisoprolol and lisinopril. Recommend follow-up in 1 week for consideration for cardioversion pending rhythm at that time. #Acute COPD exacerbation #Influenza A ? Levalbuterol and ipratropium every 6 hours, Pulmicort twice daily. Will treat with 5 days of prednisone for COPD exacerbation. Initiated on Tamiflu. Complete 5-day course. Required 2 L oxygen during admission. Weaned to room air prior to discharge. #CAD with stents #History of NH 2016 #Hyperlipidemia ? Aspirin, statin continued Total time spent on discharge 32 minutes in counseling, documentation, chart review, and direct care with patient. Exam Data for Last 24 hours Vital signs and Labs for Last 24 Hours: Temp Pulse Resp BP Pulse Ox O2 Del Method O2 Flow Rate 97.9 F 84 15 99/65 L 95 Room Air 2 08/31/24 12:00 08/31/24 14:01 08/31/24 14:01 08/31/24 14:01 08/31/24 14:01 08/31/24 13:00 08/31/24 06:25 Laboratory Results - last 24 hr 08/31/24 05:44: WBC 9.3 D, RBC 5.64, Hgb 16.5, Hct 49.0, MCV 86.9, MCH 29.3, MCHC 33.7, RDW 13.3, Plt Count 185, MPV 10.3, Neut % (Auto) 78.2, Lymph % (Auto) 14.4, [place] % (Auto) 6.9, Eos % (Auto) 0.1, Baso % (Auto) 0.1, Neut # (Auto) 7.3, Lymph # (Auto) 1.3, [place] # (Auto) 0.6, Eos # (Auto) 0.0, Baso # (Auto) 0.0, Sodium 135 L, Potassium 4.7, Chloride 102, Carbon Dioxide 26, Anion Gap 11.7, BUN 26 H D, Creatinine 1.00, Estimated Creat Clear 111, Estimated GFR 76, Est GFR ( Amer) 93, Glucose 100, Calcium 9.2, Magnesium 2.1, Total Bilirubin 0.6, AST 55, ALT 44, Alkaline Phosphatase 83, Total Protein 6.4, Albumin 3.7, Globulin 2.7, Albumin/Globulin Ratio 1.4 I & O for Last 24 hours: Intake & Output 08/28/24 08/29/24 08/30/24 08/31/24 23:59 23:59 23:59 23:59 Intake Total 46.500 / 435.791 4561.407 / 2284.407 789.273 / 789.273 Output Total 1450 / 1450 350 / 350 Balance 46.500 / 296.500 334.407 / 834.407 439.273 / 439.273 Weight 99.79 kg 100.698 kg 98.8 kg Constitutional Constitutional: no acute distress, chronically ill appearing and cooperative *Routine HEENT Exam Head: Present normocephalic Eye: Present EOMI and PERRL ENT: Present mucous membranes moist *Routine Neck Exam Neck: Present supple; Absent lymphadenopathy *Routine Respiratory Exam Respiratory: Present rhonchi; Absent wheezes or crackles *Routine Cardiovascular Exam Cardiovascular: Present irregularly irregular *Routine Abdominal Exam Abdominal: Present soft and normoactive bowel sounds; Absent tenderness *Routine Rectal Exam Patient deferred: visual exam *Routine Exam Patient deferred: penile exam *Routine Extremities Exam Extremities: Absent cyanosis, clubbing or edema *Routine Skin Exam Skin: Present warm; Absent rash *Routine Neurological Exam Neurological: Present alert, oriented X3 and moving all extremities; Absent altered mental status or abnormal gait Results Data Completed and Pending Labs on day of discharge: Labs from last 24 hours 08/31/24 05:44 WBC 9.3 D RBC 5.64 Hgb 16.5 Hct 49.0 MCV 86.9 MCH 29.3 MCHC 33.7 RDW 13.3 Plt Count 185 MPV 10.3 Neut % (Auto) 78.2 Lymph % (Auto) 14.4 [place] % (Auto) 6.9 Eos % (Auto) 0.1 Baso % (Auto) 0.1 Neut # (Auto) 7.3 Lymph # (Auto) 1.3 [place] # (Auto) 0.6 Eos # (Auto) 0.0 Baso # (Auto) 0.0 Sodium 135 L Potassium 4.7 Chloride 102 Carbon Dioxide 26 Anion Gap 11.7 BUN 26 H D Creatinine 1.00 Estimated Creat Clear 111 Estimated GFR 76 Est GFR ( Amer) 93 Glucose 100 Calcium 9.2 Magnesium 2.1 Total Bilirubin 0.6 AST 55 ALT 44 Alkaline Phosphatase 83 Total Protein 6.4 Albumin 3.7 Globulin 2.7 Albumin/Globulin Ratio 1.4 DS: Diagnosis Discharge Diagnosis (1) Atrial flutter with rapid ventricular response: Status: Acute Code(s): I48.92 - Unspecified atrial flutter (2) COPD exacerbation: Status: Acute Code(s): J44.1 - Chronic obstructive pulmonary disease with (acute) exacerbation (3) Influenza A: Status: Acute Code(s): J10.1 - Influenza due to other identified influenza virus with other respiratory manifestations (4) HFrEF (heart failure with reduced ejection fraction): Status: Acute Code(s): I50.20 - Unspecified systolic (congestive) heart failure (5) Hypertension: Status: Acute Code(s): I10 - Essential (primary) hypertension Qualifiers: Hypertension type: primary hypertension Qualified Code(s): I10 - Essential (primary) hypertension (6) History of smoking 30 or more pack years: Status: Acute Code(s): Z87.891 - Personal history of nicotine dependence (7) Chronic obstructive lung disease: Status: Acute Code(s): J44.9 - Chronic obstructive pulmonary disease, unspecified Qualifiers: COPD type: unspecified COPD Qualified Code(s): J44.9 - Chronic obstructive pulmonary disease, unspecified (8) Atrial fibrillation with RVR: Status: Acute Code(s): I48.91 - Unspecified atrial fibrillation (9) Hyperlipidemia: Status: Chronic Code(s): E78.5 - Hyperlipidemia, unspecified Qualifiers: Hyperlipidemia type: mixed hyperlipidemia Qualified Code(s): E78.2 - Mixed hyperlipidemia Meds Home Medications and Allergies Home Medications ?Medication ?Instructions ?Recorded ?Confirmed ?Type tamsulosin 0.4 mg capsule (Flomax) 0.8 mg PO DAILY prostate 02/28/18 08/30/24 History ezetimibe 10 mg tablet 10 mg PO DAILY Cholesterol 09/04/21 08/30/24 History lisinopril 2.5 mg tablet See Rx Instructions .Route 03/20/23 08/30/24 History .COMPLEX Hypertension pitavastatin calcium 2 mg tablet 2 mg PO DAILY hyperlipidemia 03/20/23 08/30/24 History (Livalo) budesonide 160 mcg-glycopyr 9 2 inh inhalation BID 90 days #10.7 03/15/24 08/30/24 Rx mcg-formot 4.8 mcg/actuation HFA grams inhaler (Breztri Aerosphere) trazodone 50 mg tablet 50 mg PO HS 06/12/24 08/30/24 History albuterol sulfate 90 mcg/actuation 2 inh inhalation QID PRN shortness 07/24/24 08/30/24 Rx aerosol inhaler of breath or wheezing 90 days #8.5 grams aspirin 81 mg tablet,delayed 81 mg PO DAILY #30 tabs 08/31/24 Rx release ipratropium 0.5 mg-albuterol 3 mg See Rx Instructions .Route 08/31/24 Rx (2.5 mg base)/3 mL nebulization .COMPLEX #270 mL soln metoprolol succinate 100 mg 100 mg PO BID 30 days #60 tabs 08/31/24 Rx tablet,extended release 24 hr oseltamivir 75 mg capsule (Tamiflu) 75 mg PO BID 3 days #6 caps 08/31/24 Rx rivaroxaban 20 mg tablet (Xarelto) 20 mg PO HS #30 tabs 08/31/24 Rx New Prescriptions to Start Prescriptions: aspirin Brandyn Cedillo metoprolol succinate Brandyn Cedillo oseltamivir [Tamiflu] Brandyn Cedillo rivaroxaban [Xarelto] Brandyn Cedillo Allergies Allergy/AdvReac Type Severity Reaction Status Date / Time atorvastatin (From Lipitor) AdvReac Severe leg pain Verified 06/15/24 09:58 rosuvastatin (From Crestor) AdvReac Severe leg pain Verified 06/15/24 09:58 Qleysiu-OTQ-LlT Reductase AdvReac Severe leg pain Verified 06/15/24 09:58 Inhibitor (Nubqjer-Jyd-Fjs Reductase Inhibitor) Discharge Plan Disposition Patient Disposition: Home, Self-Care Condition: Good Discharge Order Discharge Orders: Discharge Order (Routine); Ordered 08/31/24 Ordered By: Brandyn Cedillo Follow up Plan Follow up with: Malik Hayward MD [Staff Physician] - 09/14/24 9:45 am Vega Guardado MD [Staff Physician] - 09/06/24 1:30 pm Prescriptions/Medication Reconciliation: New metoprolol succinate 100 mg Tablet Extended Release 24 Hr 100 mg PO BID 30 Days Qty: 60 0RF oseltamivir [Tamiflu] 75 mg Capsule 75 mg PO BID 3 Days Qty: 6 0RF Xarelto 20 mg tablet 20 mg PO HS Qty: 30 0RF aspirin 81 mg Tablet,Delayed Release (Dr/Ec) 81 mg PO DAILY Qty: 30 0RF Continued tamsulosin [Flomax] 0.4 mg capsule 0.8 mg PO DAILY Breztri Aerosphere 160-9-4.8 mcg/actuation HFA aerosol inhaler 2 inh inhalation BID 90 Days Qty: 10.7 3RF albuterol sulfate 90 mcg/actuation HFA aerosol inhaler 2 inh inhalation QID PRN (Reason: shortness of breath or wheezing) 90 Days Qty: 8.5 2RF ipratropium-albuterol 0.5 mg-3 mg(2.5 mg base)/3 mL solution for nebulization See Rx Instructions .ROUTE .COMPLEX Qty: 270 0RF Dose Instruction: USE 1 AMPULE IN NEBULIZER 4 TIMES DAILY NEEDED FOR SHORTNESS OF BREATH FOR WHEEZING Rx Instructions: USE 1 AMPULE IN NEBULIZER 4 TIMES DAILY NEEDED FOR SHORTNESS OF BREATH FOR WHEEZING ezetimibe 10 MG tablet 10 mg PO DAILY pitavastatin calcium [Livalo] 2 mg tablet 2 mg PO DAILY lisinopril 2.5 mg tablet See Rx Instructions .ROUTE .COMPLEX Rx Instructions: TAKE 1 TABLET BY MOUTH DAILY trazodone 50 mg tablet 50 mg PO HS Patient Comments: TAKE 1 TABLET BY MOUTH ONCE DAILY AT BEDTIME Discontinued Xarelto 2.5 mg tablet 2.5 mg PO BID bisoprolol fumarate 5 mg tablet See Rx Instructions .ROUTE .COMPLEX Rx Instructions: TAKE 1/2 TABLET BY MOUTH DAILY Problem Reconciliation Problems Reviewed?: Yes Patient Discharge Instructions ACTIVITY: Continue current activity DIET: continue same diet Stand Alone Forms: [facility] Work Release Patient Instructions: Heart-Healthy Diet Print Language: Sami Providers Primary Care Provider: Provider,Referral Admit Provider: Min Roldan Attending Provider: Min Roldan
--- NOTE | 2024-08-31 14:34 | HMH.PHAINT1 ---
Pharmacy Intervention Comments: COUNSELED PATIENT ON NEW/CHANGED MEDICATIONS WELL DISCONTINUED MEDICATIONS PRIOR TO DISCHARGE. PATIENT VERBALIZED UNDERSTANDING.
--- NOTE | 2024-09-01 10:33 | SW/DCPLANNER ---
Spoke with patient on the phone. Patient stated that he is feeling well. Patient stated that he is aware of his upcoming appointments and that he was able to hop picker his medication at [facility]. Patient stated that he has no concerns or questions at this time. Cecilia Kidd
== END 2024-08-31 16:15 | disposition home or self-care (01) | DRG 191 ==
LOC: ER 19:35 → ICU 19:37
PROVIDERS: Internal Medicine Adolescent Medicine; Physician Assistant; Admitting Provider Student in an Organized Health Care Education/Training Program; Emergency Provider Student in an Organized Health Care Education/Training Program; Visit Provider Student in an Organized Health Care Education/Training Program
DX: J44.1 Chronic obstructive pulmonary disease with (acute) exacerbation (principal); I50.22 Chronic systolic (congestive) heart failure; J84.9 Interstitial pulmonary disease, unspecified; I11.0 Hypertensive heart disease with heart failure; I48.91 Unspecified atrial fibrillation; J10.1 Influenza due to other identified influenza virus with other respiratory manifestations; E78.5 Hyperlipidemia, unspecified; E66.9 Obesity, unspecified; E83.42 Hypomagnesemia; I20.9 Angina pectoris, unspecified; K21.9 Gastro-esophageal reflux disease without esophagitis; N40.0 Benign prostatic hyperplasia without lower urinary tract symptoms; Z79.51 Long term (current) use of inhaled steroids; Z79.899 Other long term (current) drug therapy; Z79.01 Long term (current) use of anticoagulants; Z68.29 Body mass index [BMI] 29.0-29.9, adult; Z79.82 Long term (current) use of aspirin; Z87.891 Personal history of nicotine dependence
CPT/HCPCS: 36415; 71045; 80053; 80061; 83036; 83690; 83735; 83880; 84443; 84484; 85007; 85025; 86803; 87636; 92960; 93005; 93306; 94640; 94760; 94761; 99291; J0282; J0456; J1160; J1650; J2250; J2919; J3010; J3475; J7030; J7050; J7060; J7614; J7620; J7644

== ENCOUNTER 2024-09-06 14:02 | Outpatient (CLI) | payer OTHER, SELFPAY ==
--- NOTE | 2024-09-06 14:06 | XR_ITS ---
FINAL REPORT CLINICAL HISTORY: dyspnea/typical angina COMPARISON: 08/29/2024 FINDINGS: There is a mild rounded left infrahilar density, probably vascular though an underlying nodule is not excluded. No acute pulmonary density is evident. There is no evidence of effusion or other pleural disease. The mediastinum has a normal appearance. The cardiac silhouette is unremarkable. IMPRESSION: No pneumonia. Left infrahilar rounded density, which may be secondary to vascular structures although an underlying nodule is not excluded. Recommend CT of the chest with contrast for further evaluation. Reviewed, Interpreted and Dictated by Anabel Monae MD Transcribed by Rivka Siddiqi Authenticated and [facility]
[2024-09-06 14:24] LABS: Basophils % 0.2 % (0.1-2.0); Eosinophils # 0.1 K/mm3 (0.0-0.4); Eosinophils % 0.7 % (0.1-12.0); Hemoglobin 16.2 g/dL (14.1-18.0); Lymphocytes # 1.2 K/mm3 (0.7-4.5); Lymphocytes % 9.9 % (10-50); Mean Corpuscular HGB Conc 35.2 g/dL (31.8-35.4); Mean Corpuscular Hemoglobin 30.1 pg (27.0-31.2); Mean Corpuscular Volume 85.3 fl (80-94); Mean Platelet Volume 9.5 fl (7.4-10.4); Monocytes # 0.8 K/mm3 (0.1-1.0); Monocytes % 6.5 % (1.7-9.3); Neutrophils # 10.2 K/mm3 (1.8-7.8); Neutrophils % 81.4 % (37.0-80.0); Platelet Count 290 K/mm3 (142-424); Red Blood Count 5.39 M/mm3 (4.60-6.20); Red Cell Distribution Width 12.8 % (11.5-17.5); White Blood Count 12.5 K/mm3 (4.8-10.8)
[2024-09-06 14:32] LABS: Anion Gap 12.3 mEq/L (5-15); Blood Urea Nitrogen 16 mg/dl (9-20); Calcium 9.8 mg/dl (8.4-10.2); Carbon Dioxide 28 mmol/L (22.0-30.0); Chloride 101 mmol/L (98-107); Estimated Glomerular Filt Rate 62 ml/min (>60); GFR (African American) 75 ML/MIN (>60); Glucose 92 mg/dl (74-100); Potassium 4.3 mmoL/L (3.5-5.1); Sodium 137 mmol/L (136-145)
[2024-09-06 14:44] LABS: NT Pro Brain Natriuretic Pep. 113 pg/mL (0-125)
[2024-09-06 14:51] LABS: Troponin I < 0.01 ng/ml (0.00-0.034)
[2024-09-06 15:02] LABS: Thyroid Stimulating Hormone 2.62 uIU/mL (0.465-4.68)
== END 2024-09-06 23:59 | disposition home or self-care (01) ==
LOC: LAB 14:03
PROVIDERS: PCP Family Medicine; Visit Provider Internal Medicine
DX: E78.5 Hyperlipidemia, unspecified (principal); R06.00 Dyspnea, unspecified; Z95.5 Presence of coronary angioplasty implant and graft; I11.9 Hypertensive heart disease without heart failure; I25.10 Atherosclerotic heart disease of native coronary artery without angina pectoris; I50.20 Unspecified systolic (congestive) heart failure; Z87.891 Personal history of nicotine dependence
CPT/HCPCS: 36415; 71046; 80048; 83735; 83880; 84439; 84443; 84484; 85025

== ENCOUNTER 2024-09-29 07:39 | Outpatient (CLI) | payer OTHER, SELFPAY ==
--- NOTE | 2024-09-29 07:44 | CT_ITS ---
FINAL REPORT TECHNIQUE: Thin section axial CT with contrast with multiplanar reconstruction This study was performed with techniques to keep radiation doses as low as reasonably achievable, (ALARA). Individualized dose reduction techniques using automated exposure control or adjustment of mA and/or kV according to the patient''s size were employed. CLINICAL HISTORY: dyspnea COMPARISON: LDCT dated 09/09/2023 FINDINGS: Pulmonary vessels enhance in normal fashion without evidence of embolism. Thoracic aorta shows no dissection or aneurysm. No pulmonary mass or infiltrate is present. There is a 3 mm peripheral nodule in the anterior left upper lobe, seen best on image #42, which is stable when compared to the prior exam. Changes of emphysema are once again identified. There is no significant pleural effusion. There is no significant pericardial effusion. No mediastinal or hilar adenopathy is present. IMPRESSION: No evidence of pulmonary embolism, dissection, or aneurysm. No mass or infiltrate is present. 3 mm peripheral nodule anterior left upper lobe, stable. Reviewed, Interpreted and Dictated by Anabel Monae MD Transcribed by Rivka Siddiqi Authenticated and [facility]
--- NOTE | 2024-09-29 08:01 | CA_ITS ---
APPROVED REPORT EXAM: Comprehensive 2D, Doppler, and color-flow Echocardiogram Wrinkle Chaser: LAURE Montes, RVS Ht: 6 ft 0 in Wt: 216lbs BSA: 2.20 BP: 96/57 mmHg Rhythm: Atrial Fibrillation Indications: Afib, Pe protocol, SOB, Ex-smoker, HLD, Hx-[place] ,HFrEF 2D Dimensions Left Atrium 3.49 cm M: 3.0 - 4.0 LA Volume 51.20 mL LA Volume Index [id number] mL/m2 (M/F) 16-34 M-Mode Dimensions RVDd 1.71 cm (0.9-2.6) LA Diam 3.47 cm (1.9-4.0) LVDd 5.28 cm (3.5-5.7) LVDs 3.61 cm (3.5-5.7) IVSd 1.10 cm (0.6-1.1) PWd 1.14 cm (0.6-1.1) EF (Teich) 59.20% EPSs 0.99 cm FS 31.60% EDV (Teich) 134.20 mL TAPSE 3.09 (<1.7) ESV (Teich) 54.80 mL LV Diastology E Decel Time 203 (160-240 msec) E/A Ratio 1.02 MED A' 10.20 cm/s LAT A' 10.40 cm/s Aortic Valve BRIAN Index 1.25 cm2/m2 AoV Peak Demond. 144.0 (50-130 cm/s) AO Peak GR. 8.30 mmHg AO Mean GR. 4.20 (<5 mmHg) AO VTI 27.7 (18-25 cm) BRIAN (VTI) 2.82 (2.5-4.5 cm2) Mitral Valve MV A Velocity 63.0 (40-130 cm/s) E/A Ratio 1.02 Pulmonary Valve PV Peak Velocity 96.0 (50-150 cm/s) Left Ventricle The left ventricle is normal size. The left ventricular systolic function is normal. The left ventricular ejection fraction is within the normal range. There is increased LV wall thickness. There is normal LV segmental wall motion. The left ventricular diastolic function is normal. LVEF is 55%. Right Ventricle The right ventricle is normal size. The right ventricular systolic function is normal. Atria The left atrium size is normal. The right atrium size is normal. There is no Doppler evidence of interatrial shunt. Aortic Valve Aortic valve is mildly thickened. There is no aortic valvular stenosis. No aortic regurgitation is present. Mitral Valve The mitral valve is normal in structure. No evidence of mitral valve stenosis. Mild mitral regurgitation. Tricuspid Valve Tricuspid valve is grossly normal in structure and function. Trace tricuspid regurgitation. There is insufficient TR jet to estimate RVSP. Pulmonic Valve The pulmonary valve is normal in structure. Trace pulmonic regurgitation. Great Vessels The aortic root is normal in size. IVC is normal in size and collapses >50% with inspiration. Pericardium There is no pericardial effusion. Other Information Study Quality: Adequate Conclusion Normal biventricular systolic function. Mild MR. Electronically signed by : Danna Guardado MD 10/07/2024 23:54:16
[2024-09-29] MEDS: 0.9 % SODIUM CHLORIDE 50 ML VIAL IV (08:11)
[2024-09-29] MEDS: SODIUM CHLORIDE 0.9% 10ML SYR (RAD ONLY) 10 ML IV (08:11)
[2024-09-29] MEDS: IOPAMIDOL-370 (76%);100ML BOTTLE 85 ML IV (08:12)
== END 2024-09-29 23:59 | disposition home or self-care (01) ==
LOC: RAD 07:41
PROVIDERS: PCP Family Medicine; Visit Provider Nurse Practitioner
DX: I25.10 Atherosclerotic heart disease of native coronary artery without angina pectoris (principal); I50.20 Unspecified systolic (congestive) heart failure; R06.09 Other forms of dyspnea
CPT/HCPCS: 71275; 93306; Q9967

== ENCOUNTER 2024-10-06 08:18 | Day surgery (SDC) | payer OTHER, SELFPAY ==
[2024-10-06] VITALS (14 sets, daily range): BP systolic 116–195; BP diastolic 71–110; PULSE 57–86; RESP 17–20; O2SAT 94–98; BMI 29.2
--- NOTE | 2024-10-06 | IR_ITS ---
APPROVED REPORT Patient Location: Outpatient Housekeeper Manager: KAYLA Warren RT (R) PROCEDURES Left heart catheterization Left ventriculogram Selective coronary angiogram Drug-eluting stent deployment to the proximal dominant right coronary Drug-eluting stent deployment to the proximal posterior descending artery Drug-eluting stent deployment to the mid LAD INDICATION Coronary artery disease, Accelerated angina pectoris Informed consent was obtained prior to the procedure. COMPLICATIONS None Estimated Blood Loss: Less than 10 mls TECHNIQUE One percent lidocaine used to anesthetize the right anterior aspect of the wrist. The right radial artery was accessed via the Seldinger technique. A 6 Pakistani sheath was placed in the right radial artery. 2.5 mg of Verapamil, 800 mcg of nitroglycerin, 1mg Lidocaine and 5000 U Heparin were given through the arterial sheath. The 6 Pakistani JL 3 guide catheter was also used to perform left heart catheterization, left ventriculogram and selective coronary angiogram. At the end of the diagnostic angiogram therapeutic heparin was administered giving a therapeutic ACT and the guide catheters placed in the right coronary followed by Choice PT extra-support wire placed distally. A 4 mm x 26 mm [place] frontier stent was deployed at 20 malini in the proximal portion reducing the severe stenosis to 0% SELENA-3 flow was present before and after the procedure. Following this the wire was placed in the posterior descending artery where a 2.75 mm x 18 mm Brent frontier stent was deployed in the posterior descending artery at 18 malini reducing the stenosis to 0%. The apparatus was removed from the right coronary and placed into the left main artery where the wire was placed distally into the LAD. A 2.75 x 30 mm [place] frontier stent was placed in the mid LAD and deployed at 18 mmHg. A 3 mm x 12 mm noncompliant balloon was placed in the proximal and midportion and deployed at 20 malini and then 24 malini proximally reducing the stenosis. SELENA-3 flow was present before and after the procedure. At the end of procedure the apparatus was removed the sheath was removed and hemostasis was achieved using TR banding patient was transferred to the postop putting in stable condition ANGIOGRAPHIC RESULTS The left main artery Normal The left anterior descending artery Has a stent in the proximal segment which is widely patent free of in-stent restenosis with excellent proximal distal transitioning. There is additional 30% stenosis with an eccentric plaque immediately proximal to a large second diagonal artery creating an 80 to 90% stenosis. There is an additional 50 to 60% stenosis distal to the large second diagonal artery. The remaining LAD is widely patent. The second diagonal artery is large and free of disease The circumflex artery Is nondominant with 20% stenosis in a small second obtuse marginal artery and 30 to 40% stenosis in a small third obtuse marginal artery The right coronary artery Large and dominant with a proximal concentric 70% stenosis representing in-stent restenosis. The posterior descending artery is large and has a an ostial 30% followed by proximal 70% and an additional 50% stenosis. The posterior lateral branch is large and has mid vessel 30% stenosis The PASCUAL ventriculogram reveals Preserved 55% The left ventricular end-diastolic pressure 10 mmHg IMPRESSION Coronary disease as described above Successful stenting the proximal dominant right coronary severe disease reduced to 0% with 1 drug-eluting stent Successful stenting of the proximal posterior descending artery severe disease reduced to 0% with 1 drug-eluting stent Successful stenting of the mid LAD severe disease reduced to 0% with 1 drug-eluting stent PLAN 1. Continue dual antiplatelet therapy 2. Cardiac rehabilitation 3. Avoidance of tobacco product 4. Risk factor modification Electronically signed by : Facundo Bhakta MD 10/06/2024 09:30:26
[2024-10-06 08:41] LABS: Basophils % 0.3 % (0.1-2.0); Eosinophils # 0.2 K/mm3 (0.0-0.4); Eosinophils % 3.1 % (0.1-12.0); Hematocrit 46.7 % (42.0-52.0); Hemoglobin 16.1 g/dL (14.1-18.0); Lymphocytes # 1.7 K/mm3 (0.7-4.5); Lymphocytes % 22.3 % (10-50); Mean Corpuscular HGB Conc 34.5 g/dL (31.8-35.4); Mean Corpuscular Hemoglobin 29.7 pg (27.0-31.2); Mean Corpuscular Volume 86.2 fl (80-94); Mean Platelet Volume 9.9 fl (7.4-10.4); Monocytes # 0.5 K/mm3 (0.1-1.0); Monocytes % 6.6 % (1.7-9.3); Neutrophils # 4.9 K/mm3 (1.8-7.8); Neutrophils % 66.6 % (37.0-80.0); Platelet Count 197 K/mm3 (142-424); Red Blood Count 5.42 M/mm3 (4.60-6.20); Red Cell Distribution Width 13.9 % (11.5-17.5); White Blood Count 7.4 K/mm3 (4.8-10.8)
[2024-10-06] MEDS: VERAPAMIL 2.5MG/ML 2ML VIAL 2.5 MG IV (08:41)
[2024-10-06] MEDS: LIDOCAINE 1% 10ML MDV 20 ML IJ (08:41)
[2024-10-06] MEDS: HEPARIN 1,000 UNITS/ML 10ML VIAL (CATH LAB) 10000 UNIT IV (08:41)
[2024-10-06] MEDS: HEPARIN 1,000 UNITS/500ML NS (CATH LAB) 3000 UNIT IV (08:42)
[2024-10-06] MEDS: 0.9 % SODIUM CHLORIDE 500 ML 25 ML IV (08:43)
[2024-10-06] MEDS: diphenhydrAMINE 50MG/ML VIAL 50 MG IV (08:43)
[2024-10-06 08:49] LABS: Chloride 107 mmol/L (98-107)
[2024-10-06 08:50] LABS: Potassium 4.3 mmoL/L (3.5-5.1); Sodium 138 mmol/L (136-145)
[2024-10-06 08:53] LABS: Anion Gap 12.3 mEq/L (5-15); Blood Urea Nitrogen 12 mg/dl (9-20); Calcium 9.4 mg/dl (8.4-10.2); Carbon Dioxide 23 mmol/L (22.0-30.0); Creatinine Clearance Estimated 100 mL/min (50-200); Estimated Glomerular Filt Rate 69 ml/min (>60); GFR (African American) 83 ML/MIN (>60); Glucose 103 mg/dl (74-100)
[2024-10-06] MEDS: MIDAZOLAM HCL 1MG/ML 5ML VIAL 1 MG IV (09:27)
[2024-10-06] MEDS: FENTANYL 100MCG/2ML VIAL 50 MCG IV (09:28)
[2024-10-06] MEDS: CLOPIDOGREL 300MG TABLET 600 MG PO (09:38)
[2024-10-06] MEDS: ONDANSETRON 4MG/2ML VIAL 4 MG IV (09:39)
[2024-10-06] MEDS: IOPAMIDOL-370 (76%);100ML BOTTLE 130 ML IV (09:41)
[2024-10-06 09:45] LABS: CATHL Activated Clotting Time 335 SEC (74-125)
== END 2024-10-06 12:51 | disposition home or self-care (01) ==
PROVIDERS: PCP Family Medicine; Visit Provider Internal Medicine
DX: I25.118 Atherosclerotic heart disease of native coronary artery with other forms of angina pectoris (principal); I11.0 Hypertensive heart disease with heart failure; I50.20 Unspecified systolic (congestive) heart failure; I48.91 Unspecified atrial fibrillation; R07.9 Chest pain, unspecified; Z95.5 Presence of coronary angioplasty implant and graft; Z79.899 Other long term (current) drug therapy; I77.1 Stricture of artery
CPT/HCPCS: 80048; 85025; 85347; 92928; 92929; 93458; 99152; 99153; C1725; C1760; C1769; C1874; C9600; C9601; J1200; J1644; J2250; J2405; J3010; Q9967

== ENCOUNTER 2024-10-10 12:16 | Outpatient (CLI) | payer OTHER, SELFPAY ==
[2024-10-10 12:58] LABS: Basophils % 0.3 % (0.1-2.0); Eosinophils # 0.2 K/mm3 (0.0-0.4); Eosinophils % 2.8 % (0.1-12.0); Hematocrit 47.8 % (42.0-52.0); Hemoglobin 16.6 g/dL (14.1-18.0); Lymphocytes # 1.5 K/mm3 (0.7-4.5); Lymphocytes % 20.5 % (10-50); Mean Corpuscular HGB Conc 34.7 g/dL (31.8-35.4); Mean Corpuscular Volume 86.4 fl (80-94); Mean Platelet Volume 9.7 fl (7.4-10.4); Monocytes # 0.4 K/mm3 (0.1-1.0); Monocytes % 5.9 % (1.7-9.3); Neutrophils # 5.2 K/mm3 (1.8-7.8); Neutrophils % 69.8 % (37.0-80.0); Platelet Count 223 K/mm3 (142-424); Red Blood Count 5.53 M/mm3 (4.60-6.20); Red Cell Distribution Width 13.8 % (11.5-17.5); White Blood Count 7.5 K/mm3 (4.8-10.8)
[2024-10-10 13:21] LABS: Chloride 105 mmol/L (98-107)
[2024-10-10 13:22] LABS: Potassium 4.6 mmoL/L (3.5-5.1); Sodium 138 mmol/L (136-145)
[2024-10-10 13:24] LABS: Blood Urea Nitrogen 13 mg/dl (9-20); Estimated Glomerular Filt Rate 62 ml/min (>60); GFR (African American) 75 ML/MIN (>60)
[2024-10-10 13:25] LABS: Anion Gap 10.6 mEq/L (5-15); Calcium 9.9 mg/dl (8.4-10.2); Carbon Dioxide 27 mmol/L (22.0-30.0); Glucose 100 mg/dl (74-100)
== END 2024-10-10 23:59 | disposition home or self-care (01) ==
LOC: LAB 12:17
PROVIDERS: PCP Family Medicine; Visit Provider Internal Medicine
DX: Z95.5 Presence of coronary angioplasty implant and graft (principal)
CPT/HCPCS: 36415; 80048; 85025

== ENCOUNTER 2025-04-25 12:18 | Day surgery (SDC) | payer OTHER, SELFPAY ==
[2025-04-24 13:35] VITALS: BMI 30.5
--- NOTE | 2025-04-24 14:22 | EXP.HP ---
History of Present Illness *Admission Date: 04/25/25 *History of present illness: Mr. Davis is a 60-year-old gentleman who is here for screening colonoscopy. The examination is deemed medically necessary for screening colonoscopy. The patient has been seen, interviewed and examined prior to the procedure by both myself and the anesthesia provider. [facility] Disclaimer: The information contained in this section may have been updated after the patient was seen, as this information can be updated by other users. Medical History HFrEF (heart failure with reduced ejection fraction) Coronary arteriosclerosis Atrial fibrillation with RVR History of smoking 30 or more pack years ILD (interstitial lung disease) Dyspnea on exertion BPH (benign prostatic hyperplasia) COPD (chronic obstructive pulmonary disease) Asthma History of heart attack Hyperlipidemia Hypertension Gastroesophageal reflux disease Chest pain Dizziness SOB (shortness of breath) on exertion Angina, class IV Surgical History History of heart artery stent History of tonsillectomy Family History Other Heart attack Social History (Updated 04/25/25 @ 13:06 by Farzaneh Vallecillo RN) Smoking Status: Former smoker second hand exposure: No alcohol intake: current alcohol intake frequency: holidays/special occasions only substance use type: marijuana current occupational status: employed Travel in the last 8 weeks?: None household members: spouse housing: house current occupational exposures/hazards: No caffeine: Yes Have you lived/traveled outside [place] in past 30 days?: No Contact w/someone who lives/traveled outside [place] past 30 days?: No Exposure to someone with infectious disease in past 14 days?: No Do you have a fever (greater than 100.4 F or 38 C)?: No Have you tested positive for COVID-19?: No Exposed to someone with COVID-19 in past 14 days?: No Do you have a sore throat?: No Do you have a cough?: No Do you have any weakness?: No Are you experiencing any nausea/vomitting?: No Do you have any diarrhea?: No Are you experiencing any unusual bleeding?: No Do you have any muscle aches/pain?: No Do you have any abdominal pain?: No Are you experiencing loss of taste or smell?: No Other Medical History Have you received the Flu Vaccine for this season: No Have you received the Pneumonia Vaccine: No Review of Systems Review of Systems Review of systems (narrative): Negative *Cardiovascular Comments: Negative *Gastrointestinal Comments: Negative *Genitourinary Comments: Negative *Musculoskeletal Comments: Negative *Neurologic Comments: Negative Meds Home Medications and Allergies Home Medications ?Medication ?Instructions ?Recorded ?Confirmed ?Type tamsulosin 0.4 mg capsule (Flomax) 0.8 mg PO DAILY prostate 02/28/18 04/25/25 History ezetimibe 10 mg tablet 10 mg PO DAILY Cholesterol 09/04/21 04/25/25 History lisinopril 2.5 mg tablet See Rx Instructions .Route 03/20/23 04/25/25 History .COMPLEX Hypertension budesonide 160 mcg-glycopyr 9 2 inh inhalation BID 90 days #10.7 03/15/24 04/25/25 Rx mcg-formot 4.8 mcg/actuation HFA grams inhaler ([email or web address]) ipratropium 0.5 mg-albuterol 3 mg See Rx Instructions .Route 08/31/24 04/25/25 Rx (2.5 mg base)/3 mL nebulization .COMPLEX #270 mL soln rivaroxaban 20 mg tablet (Xarelto) 20 mg PO HS #90 tabs 09/06/24 04/25/25 Rx albuterol sulfate 90 mcg/actuation See Rx Instructions .Route 09/27/24 04/25/25 Rx aerosol inhaler .COMPLEX #9 grams clopidogrel 75 mg tablet (Plavix) 75 mg PO DAILY #30 tabs 10/06/24 04/25/25 Rx metoprolol succinate 100 mg 100 mg PO DAILY 11/21/24 04/25/25 History tablet,extended release 24 hr ranolazine 1,000 mg See Rx Instructions .Route 01/22/25 04/25/25 Rx tablet,extended release,12 hr .COMPLEX #180 tabs furosemide 20 mg tablet (Lasix) 20 mg PO DAILY PRN Fluid 04/10/25 04/25/25 History trazodone 50 mg tablet 50 mg PO HS PRN Insomnia 04/10/25 04/25/25 History sodium,potassium,mag sulfates 17.5 See Rx Instructions PO .COMPLEX 04/12/25 04/25/25 Rx gram-3.13 gram-1.6 gram oral soln #354 mL (Suprep Bowel Prep Kit) New Prescriptions to Start Prescriptions: Allergies Allergy/AdvReac Type Severity Reaction Status Date / Time atorvastatin (From Lipitor) AdvReac Severe leg pain Verified 04/25/25 12:55 rosuvastatin (From Crestor) AdvReac Severe leg pain Verified 04/25/25 12:55 Vxpwudm-ZZD-SbT Reductase AdvReac Severe leg pain Verified 04/25/25 12:55 Inhibitor (Whweqab-Loj-Fvm Reductase Inhibitor) Exam Data for Last 24 hours I & O for Last 24 hours: Intake & Output 04/21/25 04/22/25 04/23/25 04/24/25 23:59 23:59 23:59 23:59 Weight 225 lb *Routine HEENT Exam Head: Present normocephalic Eye: Present EOMI and PERRL ENT: Present mucous membranes moist *Routine Neck Exam Neck: Present supple *Routine Respiratory Exam Respiratory: Present CTA bilaterally *Routine Cardiovascular Exam Cardiovascular: Present RRR *Routine Abdominal Exam Abdominal: Present soft and normoactive bowel sounds; Absent tenderness *Routine Rectal Exam Rectal:: deferred *Routine Genitalia Exam Genitalia:: deferred *Routine Extremities Exam Extremities: Absent cyanosis, clubbing or edema *Routine Skin Exam Skin: Present warm; Absent rash *Routine Neurological Exam Neurological: Present alert and oriented X3 Assessment and Plan *Assessment and plan (1) Screening for colon cancer: Status: Acute Category: Medical Code(s): Z12.11 - Encounter for screening for malignant neoplasm of colon (2) Personal history of colon polyps, unspecified: Status: Acute Category: Medical Code(s): Z86.0100 - Personal history of colon polyps, unspecified Plan A/P: 1. Screening for colon cancer is the preprocedural diagnosis. The patient did have a colonoscopy 8 or 9 years ago and had a couple of polyps (unspecified) removed. The patient will be anesthetized/sedated using MAC sedation. The patient has been seen and examined. Cardiac and lung assessment prior to the examination is stable. Proceed with planned screening colonoscopy.
[2025-04-25 12:59] VITALS: BP 99/55; PULSE 54; RESP 16; TEMP 36.6; O2SAT 94; BMI 30.5
[2025-04-25] MEDS: LACTATED RINGERS 1000ML 1,000 ML 50 ML IV (13:07)
--- NOTE | 2025-04-25 13:16 | P.PNANES_ITS ---
[facility] Disclaimer: The information contained in this section may have been updated after the patient was seen, as this information can be updated by other users. Medical History HFrEF (heart failure with reduced ejection fraction) Coronary arteriosclerosis Atrial fibrillation with RVR History of smoking 30 or more pack years ILD (interstitial lung disease) Dyspnea on exertion BPH (benign prostatic hyperplasia) COPD (chronic obstructive pulmonary disease) Asthma History of heart attack Hyperlipidemia Hypertension Gastroesophageal reflux disease Chest pain Dizziness SOB (shortness of breath) on exertion Angina, class IV Surgical History History of heart artery stent History of tonsillectomy Family History Other Heart attack Social History (Updated 04/25/25 @ 13:06 by Farzaneh Vallecillo RN) Smoking Status: Former smoker second hand exposure: No alcohol intake: current alcohol intake frequency: holidays/special occasions only substance use type: marijuana current occupational status: employed Travel in the last 8 weeks?: None household members: spouse housing: house current occupational exposures/hazards: No caffeine: Yes Have you lived/traveled outside [place] in past 30 days?: No Contact w/someone who lives/traveled outside [place] past 30 days?: No Exposure to someone with infectious disease in past 14 days?: No Do you have a fever (greater than 100.4 F or 38 C)?: No Have you tested positive for COVID-19?: No Exposed to someone with COVID-19 in past 14 days?: No Do you have a sore throat?: No Do you have a cough?: No Do you have any weakness?: No Are you experiencing any nausea/vomitting?: No Do you have any diarrhea?: No Are you experiencing any unusual bleeding?: No Do you have any muscle aches/pain?: No Do you have any abdominal pain?: No Are you experiencing loss of taste or smell?: No [facility] Anesthesia Checklist Patient Identification Patient Identification: Arm Band Structural Data Admitted From: Home Planned Operative Procedure/s: Colonoscopy Consent for Planned Operative Procedure(s) Verified: Yes Verified Documents: Surgical Consent and History and Physical NPO Status Verified Time NPO: 09:00 (finished prep) Additional verifications Anesthesia Reactions: No Airway Assessment Mallampati Score:: Class II C-Spine Mobility Assessed: Yes TMJ Mobility Assessed: Yes Dentition: Good Dentition Neurological Assessment Level of Consciousness: Awake, Alert and Appropriate Anesthesia Plan Anesthesia Risk discussed: Yes Anesthesia Plan: Verified ASA Class: III Anesthesia Type: MAC
--- NOTE | 2025-04-25 13:29 | HMH.PROCNOTE ---
[facility] Procedure Note Date: 04/25/25 Time: 13:58 Procedure Note:: Colonoscopy Procedure Report: Colonoscopy with snare cautery and cold snare polypectomy Endoscopist: Zion Stuart II, MD Referring physician: Malik Hayward MD Date of Procedure: April 25, 2025 Equipment: Olympus [id number] adult colonoscope Sedation: MAC sedation Indication: Mr. Davis is a 60-year-old gentleman who is here for follow-up screening/surveillance colonoscopy. He did have a colonoscopy 9 or 10 years ago and had a couple of polyps removed (unspecified). The patient reports no rectal bleeding, weight loss, change in his bowel habits or family history of colon cancer. 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 Procedure: Prior to the procedure, a history and physical exam was performed, and patient's medications and allergies were reviewed. The risks, benefits and alternatives of the sedation and procedure were discussed with the patient. All questions were answered and informed consent was obtained. The patient was brought to the procedure room. Patient identification and proposed procedure were verified by the physician and the nurse. The patient was placed in a left lateral decubitus position and the scope was passed under direct vision. Throughout the procedure, the patient's blood pressure, pulse, and oxygen saturations were monitored continuously. The colonoscopy was accomplished without difficulty. The patient tolerated the procedure well. Findings: On digital rectal examination there was normal rectal tone. There were no external hemorrhoids. The colonoscope was introduced through the anal canal to the rectum and advanced to the cecum. The ileocecal valve and appendiceal orifice were identified. The scope was advanced a short distance into the ileum which appeared grossly normal. The scope was then withdrawn into the colon. There were 9 colon polyps and these were larger than average adenomatous polyps (cecum x 2 (4 and 12 mm), ascending x 2 (6 and 17 mm), transverse x 1 (13 mm), proximal descending x 2 (4 and 9 mm), mid descending at 45 cm x 1 (22 mm) and distal descending x 1 (7 mm)). The largest polyps (17 and 22 mm) were removed via snare cautery and both of these were pedunculated. All of the polyps under 15 mm were removed via cold snare polypectomy. There were a few scattered diverticula in the sigmoid colon. Upon retroflexion within the rectum there were grade 2 internal hemorrhoids. The preparation was excellent throughout with [place] Preparation Score of 9. The cecal time was 22 minutes. Impression: 1. Colonic polyps x 9 (larger adenomatous polyps 2 of which were advanced adenomatous polyps (17 and 20 mm in size)) 2. Sigmoid diverticulosis 3. Grade 2 internal hemorrhoids Plan: I will follow-up the polyp histology and recommend repeat screening/surveillance colonoscopy again in 1 year.
[2025-04-25 14:02] VITALS: BP 95/54; PULSE 62; RESP 18; TEMP 36.4; O2SAT 92
[2025-04-25 14:12] VITALS: BP 117/68; PULSE 68; RESP 16; O2SAT 97
[2025-04-25 14:22] VITALS: BP 107/62; PULSE 54; RESP 16; O2SAT 96
[2025-04-25 14:32] VITALS: BP 105/67; PULSE 54; RESP 18; O2SAT 96
== END 2025-04-25 14:32 | disposition home or self-care (01) ==
PROVIDERS: PCP Family Medicine; Visit Provider Internal Medicine Gastroenterology
PROC: 0DJD8ZZ Inspection of Lower Intestinal Tract, Via Natural or Artificial Opening Endoscopic (ICD-10-PCS; CPT 45378; principal; 2025-04-25 14:00)
DX: Z12.11 Encounter for screening for malignant neoplasm of colon (principal); D12.4 Benign neoplasm of descending colon; D12.0 Benign neoplasm of cecum; D12.3 Benign neoplasm of transverse colon; K57.30 Diverticulosis of large intestine without perforation or abscess without bleeding; K64.1 Second degree hemorrhoids; Z86.0100 Personal history of colon polyps, unspecified; I11.0 Hypertensive heart disease with heart failure; I50.20 Unspecified systolic (congestive) heart failure; J44.89 Other specified chronic obstructive pulmonary disease; E78.5 Hyperlipidemia, unspecified; J84.9 Interstitial pulmonary disease, unspecified; N40.0 Benign prostatic hyperplasia without lower urinary tract symptoms; I25.10 Atherosclerotic heart disease of native coronary artery without angina pectoris; K21.9 Gastro-esophageal reflux disease without esophagitis; I48.91 Unspecified atrial fibrillation; I25.2 Old myocardial infarction; Z87.891 Personal history of nicotine dependence; Z79.01 Long term (current) use of anticoagulants; Z79.02 Long term (current) use of antithrombotics/antiplatelets; Z79.51 Long term (current) use of inhaled steroids; Z79.899 Other long term (current) drug therapy; Z88.8 Allergy status to other drugs, medicaments and biological substances
CPT/HCPCS: 45385; J2003; J2704; J7120